=== PATIENT | male | born 1940 | race Caucasian/White ===

== ENCOUNTER → 2017-02-09 | Outpatient (CLI) | payer OTHER | LOC: BHFA 15:30 | PROVIDERS: ATTEND Internal Medicine Cardiovascular Disease | DX: I35.9 Nonrheumatic aortic valve disorder, unspecified (principal); I50.9 Heart failure, unspecified ==

== ENCOUNTER 2017-02-10 15:35 | Inpatient (IN) | payer OTHER, MEDICARE ==
[2017-02-10] MEDS ORDERED: ALTEPLASE 2 MG VIAL IVP PRN ×2 (15:44)
--- NOTE | 2017-02-10 15:48 | GHP ---
[f rep st] HISTORY AND PHYSICAL CHIEF COMPLAINT: Shortness of breath at rest with critical aortic stenosis and decompensated heart failure. HISTORY OF PRESENT ILLNESS: The patient is a 77-year-old gentleman who started having shortness of breath and chest pain 3 months ago. He was admitted 3 weeks ago at [facility] and found to have an EF of 40% with critical aortic stenosis. He was referred to [facility] for consideration of AVR. An echo yesterday now demonstrates an LVEF of 10% with severe RV dysfunction, and critical aortic stenosis with a peak and mean gradient of 32 and 22 mmHg, with mild to moderate AI, MR and TR with moderate PI. The patient currently has shortness of breath at rest. He sleeps on 2-3 pillows with some orthopnea. He has had no further chest pain or syncope. His weight has been stable over the last several weeks at home. He is tentatively scheduled for a balloon valvuloplasty in the cardiac lab courier in 4 days. PAST MEDICAL HISTORY: Critical aortic stenosis, acute heart failure with an EF of 10% and concurrent RV dysfunction, and COPD. PAST SURGICAL HISTORY: None. CURRENT MEDICATIONS: Lasix 40 mg per day, atorvastatin, and the rest of medications are noncardiac. ALLERGIES: No known drug allergies. SOCIAL HISTORY: The patient does not smoke. He has 2-3 beers per day. FAMILY HISTORY: Unremarkable for premature coronary artery disease. REVIEW OF SYSTEMS: The patient reports no recent fevers, chills. He has a mildly productive yellow cough. He reports no hemoptysis. He has no GI bleed symptoms such as hematemesis, melena, or bright red blood per rectum. Rest of 10-point review of systems is negative. PHYSICAL EXAM: VITAL SIGNS: Afebrile, pulse 54 and regular, blood pressure 110 /80, respirations 24, weight 72.1 kg. GENERAL: A normal-appearing gentleman in no acute distress with mild shortness of breath at rest. EYES: Pupils equal , reactive to light. ENT: Oral mucosa with no cyanosis. NECK: Jugular venous pressure to 9-10 cm. Carotid pulses 1+ bilaterally with no obvious bruits. LUNGS: Decreased breath sounds at the bases bilaterally, consistent with bilateral moderate pleural effusions. No rales or rhonchi heard. HEART: Regular rate and rhythm with 1/6 nonradiating systolic murmur and positive S3 gallop. ABDOMEN: No guarding or rebound. EXTREMITIES: 1+ peripheral pulses including femoral and pedal pulses. Trace pretibial edema. MUSCULOSKELETAL: No scoliosis. NEURO: Normal affect and mood. SKIN: No bleeding or cyanosis. NECK: No nuchal rigidity. LABS: Done on 01/21/2017, sodium 135, potassium 3.6, chloride 23, creatinine 1.2, glucose 102. OTHER TESTING: Coronary angiogram on 01/18/2017, at [facility], demonstrated normal coronary arteries. Right heart hemodynamics demonstrated a PA pressure of 81/42, mean pulmonary capillary wedge pressure 44, and right atrial pressure of 29 with a cardiac index of 1.8 L/minute respectively. IMPRESSION AND PLAN: A 77-year-old gentleman with decompensated nonischemic systolic heart failure secondary to severe aortic stenosis with a left ventricular ejection fraction of 10% and Class 4 [place] [employer] symptoms. I am concerned that the patient has moderate pleural effusions and a very low cardiac index. I would recommend the followin. Will admit him to intensive care unit and place a peripherally inserted central catheter line today. 2. Will start on dobutamine at 3 mcg/kg per minute and probably titrate up to 5 mcg/kg per minute over the next day as long as he has no nonsustained ventricular tachycardia. 3. Will start him on Lasix 40 mg intravenously every 12 hours. 4. Will start on Aldactone 25 mg per day. 5. Will get admission labs including a CBC, CMP panel, BNP level, magnesium and PT/INR. 6. Will continue on his atorvastatin. 7. Will get daily BMP and magnesium levels. 8. We will watch closely on telemetry for any nonsustained ventricular tachycardia while on inotropes. 9. Will plan on doing a balloon valvuloplasty in the lab courier in 3-4 days, during this hospitalization. 10. For now, I do not think he will tolerate a beta norbert or angiotensin- converting enzyme inhibitor secondary to his low cardiac index and critical aortic stenosis. /[id number]/MODL MTDD
--- NOTE | 2017-02-10 15:48 | GHP ---
[f rep st] HISTORY AND PHYSICAL CHIEF COMPLAINT: Shortness of breath at rest with critical aortic stenosis and decompensated heart failure. HISTORY OF PRESENT ILLNESS: The patient is a 77-year-old gentleman who started having shortness of breath and chest pain 3 months ago. He was admitted 3 weeks ago at [facility] and found to have an EF of 40% with critical aortic stenosis. He was referred to [facility] for consideration of AVR. An echo yesterday now demonstrates an LVEF of 10% with severe RV dysfunction, and critical aortic stenosis with a peak and mean gradient of 32 and 22 mmHg, with mild to moderate AI, MR and TR with moderate PI. The patient currently has shortness of breath at rest. He sleeps on 2-3 pillows with some orthopnea. He has had no further chest pain or syncope. His weight has been stable over the last several weeks at home. He is tentatively scheduled for a balloon valvuloplasty in the cardiac veterinary laboratory technician in 4 days. PAST MEDICAL HISTORY: Critical aortic stenosis, acute heart failure with an EF of 10% and concurrent RV dysfunction, and COPD. PAST SURGICAL HISTORY: None. CURRENT MEDICATIONS: Lasix 40 mg per day, atorvastatin, and the rest of medications are noncardiac. ALLERGIES: No known drug allergies. SOCIAL HISTORY: The patient does not smoke. He has 2-3 beers per day. FAMILY HISTORY: Unremarkable for premature coronary artery disease. REVIEW OF SYSTEMS: The patient reports no recent fevers, chills. He has a mildly productive yellow cough. He reports no hemoptysis. He has no GI bleed symptoms such as hematemesis, melena, or bright red blood per rectum. Rest of 10-point review of systems is negative. PHYSICAL EXAM: VITAL SIGNS: Afebrile, pulse 54 and regular, blood pressure 110 /80, respirations 24, weight 72.1 kg. GENERAL: A normal-appearing gentleman in no acute distress with mild shortness of breath at rest. EYES: Pupils equal , reactive to light. ENT: Oral mucosa with no cyanosis. NECK: Jugular venous pressure to 9-10 cm. Carotid pulses 1+ bilaterally with no obvious bruits. LUNGS: Decreased breath sounds at the bases bilaterally, consistent with bilateral moderate pleural effusions. No rales or rhonchi heard. HEART: Regular rate and rhythm with 1/6 nonradiating systolic murmur and positive S3 gallop. ABDOMEN: No guarding or rebound. EXTREMITIES: 1+ peripheral pulses including femoral and pedal pulses. Trace pretibial edema. MUSCULOSKELETAL: No scoliosis. NEURO: Normal affect and mood. SKIN: No bleeding or cyanosis. NECK: No nuchal rigidity. LABS: Done on 01/21/2017, sodium 135, potassium 3.6, chloride 23, creatinine 1.2, glucose 102. OTHER TESTING: Coronary angiogram on 01/18/2017, at [facility], demonstrated normal coronary arteries. Right heart hemodynamics demonstrated a PA pressure of 81/42, mean pulmonary capillary wedge pressure 44, and right atrial pressure of 29 with a cardiac index of 1.8 L/minute respectively. IMPRESSION AND PLAN: A 77-year-old gentleman with decompensated nonischemic systolic heart failure secondary to severe aortic stenosis with a left ventricular ejection fraction of 10% and Class 4 [place] [employer] symptoms. I am concerned that the patient has moderate pleural effusions and a very low cardiac index. I would recommend the followin. Will admit him to intensive care unit and place a peripherally inserted central catheter line today. 2. Will start on dobutamine at 3 mcg/kg per minute and probably titrate up to 5 mcg/kg per minute over the next day as long as he has no nonsustained ventricular tachycardia. 3. Will start him on Lasix 40 mg intravenously every 12 hours. 4. Will start on Aldactone 25 mg per day. 5. Will get admission labs including a CBC, CMP panel, BNP level, magnesium and PT/INR. 6. Will continue on his atorvastatin. 7. Will get daily BMP and magnesium levels. 8. We will watch closely on telemetry for any nonsustained ventricular tachycardia while on inotropes. 9. Will plan on doing a balloon valvuloplasty in the veterinary laboratory technician in 3-4 days, during this hospitalization. 10. For now, I do not think he will tolerate a beta norbert or angiotensin- converting enzyme inhibitor secondary to his low cardiac index and critical aortic stenosis. /[id number]/MODL MTDD
[2017-02-10] MEDS ORDERED: DOBUTamine 500 MG in D5W 250 ML IV SCH (16:00)
[2017-02-10] MEDS: SPIRONOLACTONE 25 MG TAB PO SCH ×2 (16:21)
[2017-02-10] MEDS: DOBUTamine/DEXTROSE 250 ML IV SCH ×2 (17:15)
[2017-02-10] MEDS ORDERED: FUROSEMIDE 40 MG/4 ML VIAL IVP SCH ×2 (17:30)
[2017-02-10 19:00] LABS: INR 1.78 (0.83-1.16); PROTIME(PATIENT) 20.8 SEC (12.0-15.0)
[2017-02-11] MEDS: traZODone 50 MG TAB PO SCH ×4 (00:33→21:16)
--- NOTE | 2017-02-11 08:48 | SOAPPROG ---
[facility] Progress Note Assessment/Plan: Assessment: 77 y/o man with critical and acute on chronic non-ischemic systolic CHF with LVEF 10% and severe RV dysfunction. He is not having angina or NSVT on IV DBT. PLAN: 1)increase IV DBT to 5mcg/kg/min. 2)increase Lasix to 60mg IV q12hrs. 3)Lovenox 40mg SQ qam. 4)start KCL 20meq PO BID 5)plan to take to cardiac phlebotomy lab assistant Wednesday 02/14 for BAV (balloon aortic valvuloplasty). 6)recheck INR and CMP in am 02/11/17 08:44 Subjective: overall he feels a little better today. Denies CP, rest shortness of breath or palpitations. "Feels more warm" Ambulate hallway for 50ft without sx. Objective: Vital Signs Temp Pulse Resp BP Pulse Ox 36.4 C 91 24 H 98/58 L 96 02/11/17 08:00 02/11/17 08:41 02/11/17 08:41 02/11/17 08:41 02/11/17 08:41 Laboratory Results 02/10/17 18:40 02/11/17 05:20 02/10/17 02/11/17 02/12/17 05:59 05:59 05:59 Intake Total 585 Output Total 900 Balance -315 PT 20.8 SEC (12.0-15.0) H 02/10/17 18:40 INR 1.78 (0.83-1.16) H 02/10/17 18:40 Physical Exam - Physical Exam General Appearance: alert EENT: normal ENT inspection Neck: non-tender Respiratory: decreased breath sounds, rales Cardiac/Chest: regular rate, rhythm, gallop, JVD, systolic murmur Peripheral Pulses: 1+: carotid (R), carotid (L), femoral (R), femoral (L), dorsalis-pedis (R), dorsalis-pedis (L) Abdomen: non-tender, organomegaly, hepatomegaly, No guarding, No ascites Skin: warm/dry Extremities: No pedal edema Neuro/Psych: alert ICD10 Worksheet Patient Problems: Problems Problem Status Onset Acute on chronic systolic CHF (congestive heart failure), NYHA class 4 Acute Acute on chronic systolic CHF (congestive heart failure), NYHA class 4 Acute Aortic stenosis Acute Aortic stenosis Acute - ICD10 Problem Qualifiers (1) Acute on chronic systolic CHF (congestive heart failure), NYHA class 4 (2) Acute on chronic systolic CHF (congestive heart failure), NYHA class 4 (3) Aortic stenosis (4) Aortic stenosis
[2017-02-11] MEDS ORDERED: ATORVASTATIN CALCIUM 10 MG TAB PO SCH ×2 (09:00)
[2017-02-11] MEDS: CHOLECALCIFEROL VIT D3 1,000 UNITS TAB PO SCH ×2 (09:34)
[2017-02-11] MEDS: ENOXAPARIN 40 MG/0.4 ML SYR SC SCH ×2 (09:35)
[2017-02-11] MEDS: ATORVASTATIN CALCIUM 20 MG TAB PO SCH ×2 (09:35)
[2017-02-11] MEDS: SPIRONOLACTONE 25 MG TAB PO SCH ×2 (09:35)
[2017-02-11] MEDS: POTASSIUM CL 20 MEQ/15 ML UDCUP PO SCH ×4 (09:35→21:16)
[2017-02-11] MEDS: FUROSEMIDE 20 MG/2 ML VIAL IVP SCH ×4 (09:35→15:46)
--- NOTE | 2017-02-11 10:12 | GCON ---
[f rep st] CONSULTATION OCEANIC SCIENCES PROFESSOR CONSULTATION REASON FOR ADMISSION: Critical aortic stenosis. Acute congestive heart failure. HISTORY OF PRESENT ILLNESS: The patient is an extremely pleasant 77-year-old white male with a past medical history of critical aortic stenosis. He also has cardiomyopathy with an ejection fraction of 10% and chronic obstructive pulmonary disease. He was admitted from the cardiology clinic for worse cynthia breathlessness. He fairly recently has been at [facility]. Ejection fraction while at [facility] 3 weeks ago was an ejection fraction of 40%. This is apparently down to 10%, and he was subsequently admitted. In discussion with the patient, he states that he uses oxygen at night. He is currently slightly breathless. He denies any cough or productive sputum. There is no chest p ain, pleuritic-type chest pain or angina equivalent. He is currently resting comfortably. PAST MEDICAL HISTORY: Significant for critical aortic stenosis. Congestive heart failure. Right ve ntricular dysfunction and chronic obstructive pulmonary disease. ALLERGIES: No known medications. SOCIAL HISTORY: Previous history of tobacco use. None recently. He drinks 2-3 beers per day. He i s retired. ALLERGIES: None known. MEDICATIONS: Atorvastatin, Lasix. PHYSICAL EXAM: VITAL SIGNS: Blood pressure 96/49, pulse is 88, respirations 22, temperature is 36.4 , oxygen saturation 95% on room air, though this desaturates when he sleeps. GENERAL: He is a thin, elderly white male who is resting comfortably in no acute distress. HEENT: Eyes are PERRLA, EOMI. He has bilateral arcus senilis present. Throat shows no erythema or tonsillar hypertrophy. NECK: Supple. No cervical adenopathy. HEART: Regular rate and rhythm with a 3/6 systolic murmur left ascencion rnal border without radiation. LUNGS: Diminished breath sounds. A few bibasilar crackles, but no w heeze. There is mild prolongation of expiratory phase. ABDOMEN: Soft, nontender. Bowel sounds are present in all 4 quadrants. EXTREMITIES: No clubbing, cyanosis, or edema. LABORATORIES: White count 10.9, hemoglobin 14, hematocrit 43, platelet count is 223, sodium 134, pot assium 4.2, chloride 98, CO2 25, BUN 39, creatinine 1.1, glucose is 101. Chest x-ray shows a right-sided pleural effusion. There is some plate like atelectasis in the right mid lung field. There is significant cardiomegaly. IMPRESSION: 1. Adequate pain control. Critical aortic stenosis. 2. Pleural effusion. 3. Acute congestive heart failure. Ejection fraction 10%. 4. Chronic obstructive pulmonary disease. RECOMMENDATIONS: 1. Frequent nebulized treatment, both albuterol and Atrovent. 2. No need for steroids at this time. 3. We will perform thoracentesis at bedside today. 4. DVT and PE prophylaxis. 5. Stress ulcer prophylaxis. 6. Anticipate balloon valvuloplasty in 3-4 days. 7. Agree with dobutamine. /[id number]/MODL
--- NOTE | 2017-02-11 14:41 | ASMTCMCOM ---
CM Note CM Note Notes: Pt admitted with heart failuer. His DC needs are TBD. Plan is for a balloon valvuloplasty in 3-4 days. C/M will continue to follow. Date Signed: 02/11/2017 02:41 PM Electronically Signed By:Latisha James LCSW
[2017-02-12 06:34] LABS: INR 1.49 (0.83-1.16)
--- NOTE | 2017-02-12 07:08 | SOAPPROG ---
[facility] Progress Note Assessment/Plan: Assessment: 77 y/o man with critical and acute on chronic non-ischemic systolic CHF with LVEF 10% and severe RV dysfunction. He is not having angina or NSVT on IV DBT. His cardiac output is stablizing on IV DBT with LFTs down from 1000's to 250's. Some PVCs but no angina or NSVT. PLAN: 1)increase Lasix to 80mg IV BID 2)increase Aldactone to 50mg PO qam. 3)increase KCL to 20meq PO TID 4)labs in AM (CBC, CMP, BNP level and PT/INR). 5)continue IV DBT another two days. 6)Wednesday 02/14 take to cath labs for BAV (balloon aortic valvuloplasty) 02/12/17 07:04 Subjective: overall no complaints. Denies CP, syncope, PND or palpitations. Ambulating around room without sx. Objective: Vital Signs Temp Pulse Resp BP Pulse Ox 37.0 C 89 16 91/59 L 98 02/12/17 04:00 02/12/17 06:00 02/12/17 06:00 02/12/17 06:00 02/12/17 06:00 Laboratory Results 02/10/17 18:40 02/12/17 06:10 02/11/17 02/12/17 02/13/17 05:59 05:59 05:59 Intake Total 585 1645 Output Total 900 1650 Balance -315 -5 PT 18.0 SEC (12.0-15.0) H 02/12/17 06:10 INR 1.49 (0.83-1.16) H 02/12/17 06:10 Physical Exam - Physical Exam General Appearance: alert EENT: normal ENT inspection Neck: full range of motion Respiratory: decreased breath sounds (bases bilateral with rare rales bilaterally.) Cardiac/Chest: regular rate, rhythm, gallop, JVD (jvp to 9cm), systolic murmur Peripheral Pulses: 1+: carotid (R), carotid (L), femoral (R), femoral (L), dorsalis-pedis (R), dorsalis-pedis (L) Abdomen: non-tender, soft, organomegaly, No rebound Skin: warm/dry Extremities: No pedal edema Neuro/Psych: oriented x 3 ICD10 Worksheet Patient Problems: Problems Problem Status Onset Acute on chronic systolic CHF (congestive heart failure), NYHA class 4 Acute Acute on chronic systolic CHF (congestive heart failure), NYHA class 4 Acute Aortic stenosis Acute Aortic stenosis Acute - ICD10 Problem Qualifiers (1) Acute on chronic systolic CHF (congestive heart failure), NYHA class 4 (2) Acute on chronic systolic CHF (congestive heart failure), NYHA class 4 (3) Aortic stenosis (4) Aortic stenosis
[2017-02-12] MEDS: CHOLECALCIFEROL VIT D3 1,000 UNITS TAB PO SCH ×2 (09:18)
[2017-02-12] MEDS: ENOXAPARIN 40 MG/0.4 ML SYR SC SCH ×2 (09:18)
[2017-02-12] MEDS: ATORVASTATIN CALCIUM 20 MG TAB PO SCH ×2 (09:18)
[2017-02-12] MEDS: SPIRONOLACTONE 50 MG TAB PO SCH ×2 (09:22)
[2017-02-12] MEDS: POTASSIUM CL 20 MEQ/15 ML UDCUP PO SCH ×6 (09:22→23:25)
[2017-02-12] MEDS: FUROSEMIDE 100 MG/10 ML VIAL IVP SCH ×4 (09:22→14:41)
--- NOTE | 2017-02-12 09:48 | PDINTPN ---
[employer] Developer Progress Note Assessment/Plan: Assessment: * Acute congestive heart failure * Severe aortic stenosis-critical * Chronic obstructive pulmonary disease * Right-sided pleural effusion * Acute Respiratory failure secondary to above Plan: Thoracentesis today Continue diuresis Plan for balloon valvuloplasty in 3-4 days Subjective: Resting comfortably. No current breathlessness. Admits to a cough. Objective: Vital Signs Temp Pulse Resp BP Pulse Ox 36.5 C 87 16 90/51 L 91 L 02/12/17 08:00 02/12/17 09:00 02/12/17 09:00 02/12/17 09:00 02/12/17 09:00 Laboratory Results 02/10/17 18:40 02/12/17 06:10 02/11/17 02/12/17 02/13/17 05:59 05:59 05:59 Intake Total 585 1645 Output Total 900 1650 Balance -315 -5 PT 18.0 SEC (12.0-15.0) H 02/12/17 06:10 INR 1.49 (0.83-1.16) H 02/12/17 06:10 Laboratory Results 02/10/17 18:40 02/12/17 06:10 02/12/17 06:10 Calcium 7.7 mg/dL L mg/dL (8.5 - 10.4) Total Bilirubin 3.0 mg/dL H mg/dL (0.1 - 1.4) Conjugated Bilirubin 1.6 mg/dL H mg/dL (0.0 - 0.5) Unconjugated Bilirubin 1.4 mg/dL H mg/dL (0.0 - 1.1) AST 236 IU/L H IU/L (17 - 59) ALT 567 IU/L H IU/L (21 - 72) Alkaline Phosphatase 224 IU/L H IU/L (38 - 126) Total Protein 4.9 g/dL L g/dL (6.3 - 8.2) Physical Exam - Physical Exam General Appearance: alert, no apparent distress EENT: PERRL/EOMI, normal ENT inspection Neck: non-tender, full range of motion, supple, normal inspection Respiratory: respiratory distress, crackles, No wheezing, No prolonged expiration Cardiac/Chest: normal peripheral pulses, regular rate, rhythm, systolic murmur Peripheral Pulses: 2+: carotid (R), carotid (L), femoral (R), femoral (L), dorsalis-pedis (R), dorsalis-pedis (L) Abdomen: normal bowel sounds, non-tender, soft Male Genitalia: deferred Rectal: deferred Skin: normal color, warm/dry Lymphatic: no adenopathy Neuro/Psych: no motor/sensory deficits, alert, normal mood/affect, oriented x 3 ICD10 Worksheet Patient Problems: Problems Problem Status Onset Acute on chronic systolic CHF (congestive heart failure), NYHA class 4 Acute Acute on chronic systolic CHF (congestive heart failure), NYHA class 4 Acute Aortic stenosis Acute Aortic stenosis Acute
[2017-02-12] MEDS ORDERED: LIDOCAINE 1% 5 ML SDV ONE ×2 (11:41)
--- NOTE | 2017-02-12 12:20 | GPN ---
[f rep st] PROCEDURE NOTE DATE OF PROCEDURE: 02/12/2017 PROCEDURE PERFORMED: Thoracentesis. INDICATION: Large right pleural effusion. ANESTHESIA GIVEN: He received 1% lidocaine locally. PROCEDURE IN DETAIL: Procedure was performed in the intensive care unit. Continuous pulse oximetry, EKG and blood pressure monitoring. Procedure via Seldinger technique. A thoracentesis was performe d in the right chest after ultrasound guidance. Approximately the 1200 cc of clearish yellow fluid w as removed. The patient tolerated the procedure well. There were no apparent complications. Portable chest x-ra y has been called for. /[id number]/MODL
[2017-02-12] MEDS ORDERED: LIDOCAINE 1% 5 ML SDV IF ONE ×2 (13:00)
[2017-02-12] MEDS ORDERED: ACETAMINOPHEN 325 MG TAB PO PRN ×2 (13:39)
[2017-02-12] MEDS: DOBUTamine/DEXTROSE 250 ML IV SCH ×2 (23:25)
[2017-02-12] MEDS: traZODone 50 MG TAB PO SCH ×2 (23:25)
[2017-02-13 07:08] LABS: INR 1.32 (0.83-1.16); PROTIME(PATIENT) 16.4 SEC (12.0-15.0)
[2017-02-13] MEDS: ENOXAPARIN 40 MG/0.4 ML SYR SC SCH ×2 (08:55)
[2017-02-13] MEDS: CHOLECALCIFEROL VIT D3 1,000 UNITS TAB PO SCH ×2 (08:55)
[2017-02-13] MEDS: SPIRONOLACTONE 50 MG TAB PO SCH ×2 (08:56)
[2017-02-13] MEDS: POTASSIUM CL 20 MEQ/15 ML UDCUP PO SCH ×6 (08:56→20:51)
[2017-02-13] MEDS: FUROSEMIDE 100 MG/10 ML VIAL IVP SCH ×4 (08:56→15:22)
--- NOTE | 2017-02-13 10:59 | PDCARPN ---
Cardiology Progress Note Chief Complaint: Patient reports ongoing fatigue symptoms. Assessment/Plan: Assessment: 67-year-old male with significant history of critical aortic stenosis (peak gradient 32, mean gradient 22), acute systolic heart failure with with EF 10% and concurrent RV dysfunction, and COPD. Admitted for worsening heart failure with recent reduction of EF from 40 down to 10%. Noted significant elevated LFTs on admission, started on dobutamine drip in diuretic therapy. Underwent thoracentesis to the right chest yesterday with 1200 mL of clear she L of fluid removed. Today's patient weight is 67.6 kilos, he is down 4 kilos from hospital admission. BNP is now down to 10,002 from 06/05 1900 on admission. AST and ALT both improved (153 and 454) with dobutamine and diuresis. Patient has maintained sinus rhythm with occasional PVC, noted to 3 beat run of SVT. No other malignant arrhythmias or pauses noted monitoring. Patient denies of any chest pressure pain. Reports breathing is easier status post thoracentesis. Plan: 1. Acute systolic heart failure: Continues to improve on dobutamine and diuretic therapy. No changes at this time. Beta-blockers and Sameer inhibitors were hold secondary to low cardiac dex in critical aortic stenosis, consideration of starting pending results of valvuloplasty. No changes at this time to medication therapy. Patient remains on potassium supplemental therapy. Repeat CMP in a.m.. 2. Pleural effusion: Status post right-sided thoracentesis yesterday, 1200 mL. 3. Critical aortic stenosis: Patient has been seen by Dr. Bower, he is scheduled to undergo balloon aortic valvuloplasty in a.m., patient has been made NPO after midnight, type and screen has been ordered. 4. Elevated LFTs: Probably related to recent reduction of cardiac output and systolic heart failure, has improved with dobutamine and diuretic therapy. Continue monitor. 5. Hyperlipidemia: Has been continue on home dosing of atorvastatin. 02/13/17 10:56 Subjective: Patient reports no chest pain or pressure, denies palpitations. Reports shortness of breath has improved significantly after thoracentesis yesterday. Reports no orthopnea. Reviewed/Discussed With: other (Dr Monzon and Dr Garcia) Objective: Vital Signs (8 Hrs) Temp Pulse Resp BP Pulse Ox 02/13/17 10:00 104 H 16 105/73 97 10/30/17 09:00 108 H 16 85/45 L 97 02/13/17 08:00 100 14 85/47 L 94 02/13/17 07:00 81 16 88/50 L 96 02/13/17 06:00 81 16 96/56 L 95 02/13/17 05:00 84 16 88/50 L 98 02/13/17 04:00 36.9 C 81 16 94/56 L 97 02/13/17 03:00 95 14 83/54 L 98 Intake/Output (24 Hrs) 02/12/17 02/13/17 02/14/17 05:59 05:59 05:59 Intake Total 1645 1177 Output Total 1650 1650 Balance -5 -473 Intake: Oral (ml) 1400 920 IV Infused (ml) 245 257 DOBUTamine/DEXTROSE 250 245 257 ml @ Titrate IV CONT RENETTA Rx#:[id number] Output: Urine (ml) 1650 1650 Urinal 1650 1650 Other: Weight 67.6 kg 67.6 kg Intake Quantity Yes Yes Sufficient Number of Voids Urinal 1 2 Number of Stools Urinal 1 Result Diagrams: 02/13/17 06:45 02/13/17 06:45 - Physical Exam Constitutional: no apparent distress, other (Thin elderly male.) Ears, Nose, Mouth, Throat: moist mucous membranes Cardiovascular: regular rate and rhythm, systolic murmur (Upper chest, 2 to 3/6) , jugular vein distention (5-6 cm above sternal notch at 45 degree angle.), pulses symmetric bilat, No carotid bruit Peripheral Pulses: 1+: dorsalis-pedis (R), dorsalis-pedis (L), 2+: carotid (R), carotid (L) Respiratory: other (Lungs diminished in right lower base, no rhonchi, rales, or wheezing noted. No accessary muscle use, no intercostal muscle retraction noted. ) Gastrointestinal: normoactive bowel sounds Skin: warm, no edema Neurologic: AAOx3 Psychiatric: cooperative, interactive, following commands ICD10 Worksheet Patient Problems: Problems Problem Status Onset Acute on chronic systolic CHF (congestive heart failure), NYHA class 4 Acute Acute on chronic systolic CHF (congestive heart failure), NYHA class 4 Acute Aortic stenosis Acute Aortic stenosis Acute
--- NOTE | 2017-02-13 14:48 | PDINTPN ---
Speech [employer] Progress Note Assessment/Plan: Assessment/plan: 77 M with known critical and decompensated CHF found to have EF 10% and awaiting balloon valvuloplasty, since not currently thought to be reasonable candidate for TAVR. He has been treated with dobutamine and diuretics as well as thoracentesis with a good response in BP, LFTs, renal function. * Critical - balloon valvuloplasty in AM * CHF- responding well to DBT/diuretics * Pleural effusion 2/2 above. Tolerated tap well with no complications and improved breathing. * COPD history- currently stable without nebs. Continue observation for now and will clarify diagnosis. * * Subjective: Feels OK. Denies CP, SOB. Objective: Vital Signs Temp Pulse Resp BP Pulse Ox 36.5 C 90 18 90/63 L 91 L 02/13/17 11:00 02/13/17 14:00 02/13/17 14:00 02/13/17 14:00 02/13/17 14:00 Microbiology 02/12/17 10:30 - Final Sputum, Expectorated Sputum Culture - Final 02/12/17 12:15 Gram Stain - Final Pleural Fluid - Aspirate Laboratory Results 02/13/17 06:45 02/13/17 06:45 02/12/17 02/13/17 02/14/17 05:59 05:59 05:59 Intake Total 1645 1177 Output Total 1650 1650 Balance -5 -473 PT 16.4 SEC (12.0-15.0) H 02/13/17 06:45 INR 1.32 (0.83-1.16) H 02/13/17 06:45 Physical Exam - Physical Exam General Appearance: WD/WN, alert, no apparent distress EENT: PERRL/EOMI Neck: supple Respiratory: lungs clear, normal breath sounds, No respiratory distress, No wheezing Cardiac/Chest: regular rate, rhythm Abdomen: non-tender, soft, No distended Skin: normal color, warm/dry Lymphatic: no adenopathy Extremities: No pedal edema Neuro/Psych: alert, normal mood/affect, oriented x 3 ICD10 Worksheet Patient Problems: Problems Problem Status Onset Acute on chronic systolic CHF (congestive heart failure), NYHA class 4 Acute Acute on chronic systolic CHF (congestive heart failure), NYHA class 4 Acute Aortic stenosis Acute Aortic stenosis Acute
[2017-02-13] MEDS: ATORVASTATIN CALCIUM 20 MG TAB PO SCH ×2 (17:35)
[2017-02-13] MEDS: DOBUTamine/DEXTROSE 250 ML IV SCH ×2 (19:12)
[2017-02-13] MEDS ORDERED: LACTULOSE 20 GM/30 ML UDCUP PO PRN ×2 (20:35)
[2017-02-13] MEDS ORDERED: MAGNESIUM HYDROXIDE 30 ML UDCUP PO PRN ×2 (20:35)
[2017-02-13] MEDS ORDERED: POLYETHYLENE GLYCOL 3350 17 GM PKT PO PRN ×2 (20:35)
[2017-02-13] MEDS ORDERED: BISACODYL 10 MG SUPP PR PRN ×2 (20:35)
[2017-02-13] MEDS: traZODone 50 MG TAB PO SCH ×2 (20:51)
[2017-02-13] MEDS: SENNOSIDES/DOCUSATE SODIUM TAB PO SCH ×2 (20:51)
[2017-02-14 05:43] LABS: INR 1.19 (0.83-1.16); PROTIME(PATIENT) 15.1 SEC (12.0-15.0)
[2017-02-14] MEDS ORDERED: diphenhydrAMINE 25 MG CAP PO ONE ×2 (06:00)
[2017-02-14] MEDS ORDERED: DIAZEPAM 5 MG TAB PO ONE ×2 (06:00)
[2017-02-14] MEDS ORDERED: FAMOTIDINE 20 MG TAB PO ONE ×2 (06:00)
[2017-02-14] MEDS ORDERED: NS 1,000 ML IV ONE ×2 (06:00)
[2017-02-14] MEDS ORDERED: fentaNYL 100 MCG/2 ML INJ ONE ×2 (06:46)
[2017-02-14] MEDS ORDERED: LIDOCAINE 1% 300 MG/30 ML SDV ONE ×2 (06:46)
[2017-02-14] MEDS ORDERED: IOPAMIDOL (ISOVUE-370) 150 ML BTL IV ONE ×2 (06:47)
[2017-02-14] MEDS ORDERED: MIDAZOLAM 2 MG/2 ML VIAL ONE ×2 (06:47)
[2017-02-14] MEDS ORDERED: HEPARIN 10,000 UNIT/10 ML MDV ONE ×4 (06:51)
--- NOTE | 2017-02-14 06:55 | CPEKG ---
Heart Rate: 94 RR Interval: 638 P-R Interval: 184 QRSD Interval: 100 QT Interval: 380 QTC Interval: 476 P [place]: 48 QRS [place]: -46 T Wave [place]: 88 EKG Severity - ABNORMAL ECG - EKG Impression: SINUS RHYTHM EKG Impression: VENTRICULAR PREMATURE COMPLEX EKG Impression: LEFT ATRIAL ABNORMALITY EKG Impression: LAD, CONSIDER LEFT ANTERIOR FASCICULAR BLOCK EKG Impression: LEFT VENTRICULAR HYPERTROPHY EKG Impression: BORDERLINE PROLONGED QT INTERVAL EKG Impression: NON SPECIFIC ST/T WAVE CHANGES TO THE LATERAL/HIGH LATERAL LEADS EKG Impression: CHANGES ARE NEW IN COMPARISON TO PRIOR Electronically Signed By: Radu Hammond 14-Feb-2017 09:58:44
--- NOTE | 2017-02-14 07:01 | PDPROPOC ---
Sedation Plan of Care Sedation Plan of Care: mental status noted ASA Classification: ASA 2 Planned drugs: midazolam Mallampati Score: Class 2 Mallampati Reference Image: Patient passed 3-3-2 rule?: Yes
[2017-02-14] MEDS ORDERED: DILTIAZEM 25 MG/5 ML VIAL IVP ONE ×2 (07:39)
[2017-02-14] MEDS ORDERED: PHENYLEPHRINE HCL 100 MCG/ML SYR ONE ×2 (07:53)
[2017-02-14] MEDS ORDERED: OXYCODONE/APAP 5/325 TAB PO PRN ×2 (08:12)
[2017-02-14] MEDS ORDERED: ATROPINE SULFATE 1 MG/10 ML SYR IVP PRN ×2 (08:12)
[2017-02-14] MEDS ORDERED: HYDROCODONE/APAP 5/325 TAB PO PRN ×2 (08:12)
[2017-02-14] MEDS ORDERED: DOBUTamine 500 MG in D5W 250 ML IV SCH (08:15)
[2017-02-14] MEDS: SENNOSIDES/DOCUSATE SODIUM TAB PO SCH ×4 (09:45→20:55)
[2017-02-14] MEDS: SPIRONOLACTONE 50 MG TAB PO SCH ×2 (09:45)
[2017-02-14] MEDS: FUROSEMIDE 40 MG/4 ML VIAL IVP SCH ×4 (09:45→16:46)
[2017-02-14] MEDS: CHOLECALCIFEROL VIT D3 1,000 UNITS TAB PO SCH ×2 (09:45)
[2017-02-14] MEDS: POTASSIUM CL 20 MEQ/15 ML UDCUP PO SCH ×4 (09:46→16:34)
--- NOTE | 2017-02-14 10:59 | PDCARPN ---
Cardiology Progress Note Chief Complaint: Patient very sedated, voices no complaints at this time. Assessment/Plan: Assessment: 67-year-old male with significant history of critical aortic stenosis (peak gradient 32, mean gradient 22), acute systolic heart failure with with EF 10% and concurrent RV dysfunction, and COPD. Admitted for worsening heart failure with recent reduction of EF from 40 down to 10%. Noted significant elevated LFTs on admission, started on dobutamine drip in diuretic therapy. Underwent thoracentesis to the right chest on 02/13 with 1200 mL of clear fluid removed. Today, patient is status post balloon aortic valvuloplasty , done by Dr. Garcia. Tolerated procedure well. Dr Garcia reports 80% opening of stenosis. Vital signs stable. Remained in sinus rhythm with occasional PVC, no other malignant arrhythmias noted overnight. Laboratory studies showing continue reduction LFTs, with AST at will 130 today, ALT 376. Weight remained stable at 67.6 kilos. I<O. Plan: 1. Critical aortic stenosis: s/p balloon aortic valvuloplasty, tolerated well. Postprocedure protocol being followed. Repeat echocardiogram in a.m.. 2. Acute systolic heart failure: No significant weight loss overnight. Renal function remained stable. Per Dr Garcia request, dobutamine drip has been titrated back to 2.5 mg per kg per minute, I have asked the ICU staff to attempt to titrate the drip to off by this evening, as long as systolic blood pressure remains in the 90s. Have also decreased IV Lasix to 40 mg twice daily and decreased potassium supplement to 20 mEq twice daily. Repeated potassium level and magnesium level at 2:00 p.m. today. Beta-blockers and Sameer inhibitors are on hold secondary to low cardiac index, may consider starting a few days. 3. Pleural effusion: Status post right-sided thoracentesis 02/13, 1200 mL out. 4. Elevated LFTs: Probably related to recent reduction of cardiac output and systolic heart failure, continues to improve. Continue to monitor. 5. Hyperlipidemia: Has been continue on home dosing of atorvastatin. 6. DVT prophylaxis: Lovenox currently on hold due to valvuloplasty today, consider restarting tomorrow morning 02/14/17 10:52 Subjective: Patient reports no chest pressure or pain. Is sedated postprocedure. Denies of any shortness of breath. Reviewed/Discussed With: other (Dr Garcia) Objective: Vital Signs (8 Hrs) Pulse Resp BP Pulse Ox 02/14/17 10:00 72 15 94/55 L 99 02/14/17 08:00 97 94 02/14/17 06:00 78 12 96/60 L 96 02/14/17 04:00 87 12 85/51 L 97 Intake/Output (24 Hrs) 02/13/17 02/14/17 02/15/17 05:59 05:59 05:59 Intake Total 1177 1517 Output Total 1650 2550 Balance -473 -1033 Intake: Oral (ml) 920 1250 IV Infused (ml) 257 267 DOBUTamine/DEXTROSE 250 257 267 ml @ Titrate IV CONT RENETTA Rx#:[id number] Output: Urine (ml) 1650 2550 Urinal 1650 2550 Other: Weight 67.6 kg 67.6 kg 67.6 kg Intake Quantity Yes Sufficient Number of Voids Urinal 2 4 Result Diagrams: 02/14/17 05:00 02/14/17 05:00 - Physical Exam Constitutional: WDWN, no apparent distress Ears, Nose, Mouth, Throat: moist mucous membranes Cardiovascular: regular rate and rhythm, no rubs, no gallops, systolic murmur (2 /6 right upper chest.), jugular vein distention (4-5 cm above sternal notch at 45 degree angle), pulses symmetric bilat, No carotid bruit Peripheral Pulses: 1+: dorsalis-pedis (R), dorsalis-pedis (L), 2+: carotid (R), carotid (L) Respiratory: other (Diminished breath sounds in right lower base, no rhonchi, rales, or wheezing noted. No accessary muscle use, no intercostal muscle retraction noted.) Gastrointestinal: normoactive bowel sounds Skin: no rashes, no edema, other (Left groin site, catheter insertion site, sheath removed, no redness, swelling, drainage, ecchymosis, or hematoma. Dressing CDI) Neurologic: AAOx3 Psychiatric: cooperative, following commands ICD10 Worksheet Patient Problems: Problems Problem Status Onset Acute on chronic systolic CHF (congestive heart failure), NYHA class 4 Acute Acute on chronic systolic CHF (congestive heart failure), NYHA class 4 Acute Aortic stenosis Acute Aortic stenosis Acute
--- NOTE | 2017-02-14 11:54 | CPIP ---
[f rep st] INVASIVE CARDIAC PROCEDURE DATE OF PROCEDURE: 02/14/2017 INDICATION FOR PROCEDURE: Critical aortic stenosis, low ejection fraction. PROCEDURE PERFORMED: 1. Left groin sheathogram. 2. Abdominal aortogram. 3. Left heart catheterization. 4. Balloon aortic valvuloplasty using Pardeep 20 x 60 balloon. HISTORY: Briefly, this is a 77-year-old male with history of critical aortic stenosis with a signifi cantly reduced EF of 10% to 15%. Patient was admitted 3 days ago for dobutamine and Lasix for volume overload. Patient was consented for balloon aortic valvuloplasty secondary to the fact being deemed to be an extremely high risk, if not inoperable candidate by Dr. Jaden Patel for open AVR. PROCEDURE DESCRIPTION: After informed consent was obtained, the patient was brought to [facility] where the left groin was prepped and draped in sterile fashion using lidocaine. A short 6-Maldivian sheath in th e left common femoral artery was placed for angiography. This was then upsized to an 8-Maldivian sheath . The patient was administered a total of 5000 heparin during the case. An AL1 4-Maldivian catheter wa s then utilized to cross the valve. This was unsuccessful due to the catheter not having enough stif fness to cross the valve, which was extremely calcified. This was eventually successfully crossed wi a straight wire and an AL1 6-Maldivian catheter. This was switched out for a pigtail catheter over a 260 J-wire. Simultaneous pressures were then obtained, which showed a mean gradient difference of a pproximately 44 mmHg from the LV and the aorta. This is in the setting of a significantly reduced ej ection fraction of 10% to 15%. Thus, his gradients were probably underestimated if anything. At thi s time, the pigtail catheter was removed over an Amplatz superstiff wire. A Pardeep 20 x 60 balloon wa s then placed across the aortic valve. Multiple sequential inflations occurred across the valve. Af ter multiple inflations, the balloon was removed. A pigtail catheter was placed in the LV. Simultan eous pressures were then obtained, which then showed a mean gradient difference of 5 mmHg for a net r eduction of 39 mmHg. The pigtail catheter was then removed and placed in the descending aorta where an abdominal aortogram was obtained, which showed patent descending aorta, patent bilateral common, e xternal, internal, and common femorals. However, the flow was very slow; thus, opacification of the right common femoral artery was limited. After these images were obtained, the pigtail catheter was removed. The 0.035 wire in the left groin was sutured in place. The patient tolerated the procedure well with no complications. Of note, the patient's systemic blood pressure increased significantly after the balloon valvuloplasty from a baseline of 100/70 to 120/70. IMPRESSION: Successful balloon aortic valvuloplasty reducing mean gradient difference of 44 mmHg to 5 mmHg for a net reduction of 39 mmHg. PLAN: The patient will be admitted back to the ICU setting. Dobutamine should be weaned down later today, hopefully to off later this evening, as well as having the IV Lasix reduced. Patient should h ave a repeat echo in 24 hours. Unfortunately, the patient's ejection fraction does not improve signi ficantly with this procedure. Choices are limited for further therapy, i.e., open heart surgery or e alia TAVR, as he is a very, very high risk candidate. Clinical course will determine patient's future options. /[id number]/MODL
--- NOTE | 2017-02-14 11:54 | CPIP ---
[f rep st] INVASIVE CARDIAC PROCEDURE DATE OF PROCEDURE: 02/14/2017 INDICATION FOR PROCEDURE: Critical aortic stenosis, low ejection fraction. PROCEDURE PERFORMED: 1. Left groin sheathogram. 2. Abdominal aortogram. 3. Left heart catheterization. 4. Balloon aortic valvuloplasty using Pardeep 20 x 60 balloon. HISTORY: Briefly, this is a 77-year-old male with history of critical aortic stenosis with a signifi cantly reduced EF of 10% to 15%. Patient was admitted 3 days ago for dobutamine and Lasix for volume overload. Patient was consented for balloon aortic valvuloplasty secondary to the fact being deemed to be an extremely high risk, if not inoperable candidate by Dr. Jaden Patel for open AVR. PROCEDURE DESCRIPTION: After informed consent was obtained, the patient was brought to [facility] where the left groin was prepped and draped in sterile fashion using lidocaine. A short 6-Eritrean sheath in th e left common femoral artery was placed for angiography. This was then upsized to an 8-Eritrean sheath . The patient was administered a total of 5000 heparin during the case. An AL1 4-Eritrean catheter wa s then utilized to cross the valve. This was unsuccessful due to the catheter not having enough stif fness to cross the valve, which was extremely calcified. This was eventually successfully crossed wi a straight wire and an AL1 6-Eritrean catheter. This was switched out for a pigtail catheter over a 260 J-wire. Simultaneous pressures were then obtained, which showed a mean gradient difference of a pproximately 44 mmHg from the LV and the aorta. This is in the setting of a significantly reduced ej ection fraction of 10% to 15%. Thus, his gradients were probably underestimated if anything. At thi s time, the pigtail catheter was removed over an Amplatz superstiff wire. A Pardeep 20 x 60 balloon wa s then placed across the aortic valve. Multiple sequential inflations occurred across the valve. Af ter multiple inflations, the balloon was removed. A pigtail catheter was placed in the LV. Simultan eous pressures were then obtained, which then showed a mean gradient difference of 5 mmHg for a net r eduction of 39 mmHg. The pigtail catheter was then removed and placed in the descending aorta where an abdominal aortogram was obtained, which showed patent descending aorta, patent bilateral common, e xternal, internal, and common femorals. However, the flow was very slow; thus, opacification of the right common femoral artery was limited. After these images were obtained, the pigtail catheter was removed. The 0.035 wire in the left groin was sutured in place. The patient tolerated the procedure well with no complications. Of note, the patient's systemic blood pressure increased significantly after the balloon valvuloplasty from a baseline of 100/70 to 120/70. IMPRESSION: Successful balloon aortic valvuloplasty reducing mean gradient difference of 44 mmHg to 5 mmHg for a net reduction of 39 mmHg. PLAN: The patient will be admitted back to the ICU setting. Dobutamine should be weaned down later today, hopefully to off later this evening, as well as having the IV Lasix reduced. Patient should h ave a repeat echo in 24 hours. Unfortunately, the patient's ejection fraction does not improve signi ficantly with this procedure. Choices are limited for further therapy, i.e., open heart surgery or e alia TAVR, as he is a very, very high risk candidate. Clinical course will determine patient's future options. /[id number]/MODL
--- NOTE | 2017-02-14 11:54 | CPIP ---
[f rep st] INVASIVE CARDIAC PROCEDURE DATE OF PROCEDURE: 02/14/2017 INDICATION FOR PROCEDURE: Critical aortic stenosis, low ejection fraction. PROCEDURE PERFORMED: 1. Left groin sheathogram. 2. Abdominal aortogram. 3. Left heart catheterization. 4. Balloon aortic valvuloplasty using Pardeep 20 x 60 balloon. HISTORY: Briefly, this is a 77-year-old male with history of critical aortic stenosis with a signifi cantly reduced EF of 10% to 15%. Patient was admitted 3 days ago for dobutamine and Lasix for volume overload. Patient was consented for balloon aortic valvuloplasty secondary to the fact being deemed to be an extremely high risk, if not inoperable candidate by Dr. Jaden Patel for open AVR. PROCEDURE DESCRIPTION: After informed consent was obtained, the patient was brought to [facility] where the left groin was prepped and draped in sterile fashion using lidocaine. A short 6-Greek sheath in th e left common femoral artery was placed for angiography. This was then upsized to an 8-Greek sheath . The patient was administered a total of 5000 heparin during the case. An AL1 4-Greek catheter wa s then utilized to cross the valve. This was unsuccessful due to the catheter not having enough stif fness to cross the valve, which was extremely calcified. This was eventually successfully crossed wi a straight wire and an AL1 6-Greek catheter. This was switched out for a pigtail catheter over a 260 J-wire. Simultaneous pressures were then obtained, which showed a mean gradient difference of a pproximately 44 mmHg from the LV and the aorta. This is in the setting of a significantly reduced ej ection fraction of 10% to 15%. Thus, his gradients were probably underestimated if anything. At thi s time, the pigtail catheter was removed over an Amplatz superstiff wire. A Pardeep 20 x 60 balloon wa s then placed across the aortic valve. Multiple sequential inflations occurred across the valve. Af ter multiple inflations, the balloon was removed. A pigtail catheter was placed in the LV. Simultan eous pressures were then obtained, which then showed a mean gradient difference of 5 mmHg for a net r eduction of 39 mmHg. The pigtail catheter was then removed and placed in the descending aorta where an abdominal aortogram was obtained, which showed patent descending aorta, patent bilateral common, e xternal, internal, and common femorals. However, the flow was very slow; thus, opacification of the right common femoral artery was limited. After these images were obtained, the pigtail catheter was removed. The 0.035 wire in the left groin was sutured in place. The patient tolerated the procedure well with no complications. Of note, the patient's systemic blood pressure increased significantly after the balloon valvuloplasty from a baseline of 100/70 to 120/70. IMPRESSION: Successful balloon aortic valvuloplasty reducing mean gradient difference of 44 mmHg to 5 mmHg for a net reduction of 39 mmHg. PLAN: The patient will be admitted back to the ICU setting. Dobutamine should be weaned down later today, hopefully to off later this evening, as well as having the IV Lasix reduced. Patient should h ave a repeat echo in 24 hours. Unfortunately, the patient's ejection fraction does not improve signi ficantly with this procedure. Choices are limited for further therapy, i.e., open heart surgery or e alia TAVR, as he is a very, very high risk candidate. Clinical course will determine patient's future options. /[id number]/MODL
--- NOTE | 2017-02-14 13:35 | CPEKG ---
Heart Rate: 86 RR Interval: 698 P-R Interval: 192 QRSD Interval: 98 QT Interval: 400 QTC Interval: 479 P [place]: 29 QRS [place]: -48 T Wave [place]: 107 EKG Severity - ABNORMAL ECG - EKG Impression: SINUS RHYTHM EKG Impression: PROBABLE LEFT ATRIAL ABNORMALITY EKG Impression: LAD, CONSIDER LAFB OR INFERIOR INFARCT EKG Impression: LEFT VENTRICULAR HYPERTROPHY EKG Impression: BORDERLINE PROLONGED QT INTERVAL Electronically Signed By: Radu Hammond 14-Feb-2017 14:13:52
[2017-02-14] MEDS ORDERED: DOBUTamine/DEXTROSE 250 ML IV SCH ×2 (14:00)
--- NOTE | 2017-02-14 14:34 | ASMTCMCOM ---
CM Note CM Note Notes: Spoke to patient and his son, Torin. Patient reports having a HC RN before his hospitalization. He can't remember what agency she works for, but son will check and get back to CM. Patient may need PT/OT as well? and may need home O2. Torin is from [place] and doesn't know how long he will be able to stay. CM to follow. Date Signed: 02/14/2017 02:33 PM Electronically Signed By:Bita Willard LCSW
--- NOTE | 2017-02-14 14:34 | ASMTCMCOM ---
CM Note CM Note Notes: Spoke to patient and his son, Torin. Patient reports having a HC RN before his hospitalization. He can't remember what agency she works for, but son will check and get back to CM. Patient may need PT/OT as well? and may need home O2. Torin is from [place] and doesn't know how long he will be able to stay. CM to follow. Date Signed: 02/14/2017 02:33 PM Electronically Signed By:Bita Willard LCSW
--- NOTE | 2017-02-14 14:34 | ASMTCMCOM ---
CM Note CM Note Notes: Spoke to patient and his son, Torin. Patient reports having a HC RN before his hospitalization. He can't remember what agency she works for, but son will check and get back to CM. Patient may need PT/OT as well? and may need home O2. Torin is from [place] and doesn't know how long he will be able to stay. CM to follow. Date Signed: 02/14/2017 02:33 PM Electronically Signed By:Bita Willard LCSW
[2017-02-14] MEDS: ATORVASTATIN CALCIUM 20 MG TAB PO SCH ×2 (16:48)
[2017-02-14] MEDS: traZODone 50 MG TAB PO SCH ×2 (20:55)
[2017-02-15 04:53] LABS: PLATELET COUNT 153 10^3/uL (150-400)
[2017-02-15] MEDS: CHOLECALCIFEROL VIT D3 1,000 UNITS TAB PO SCH ×2 (08:43)
[2017-02-15] MEDS: SPIRONOLACTONE 50 MG TAB PO SCH ×2 (08:43)
[2017-02-15] MEDS: POTASSIUM CL 20 MEQ/15 ML UDCUP PO SCH ×2 (08:43)
[2017-02-15] MEDS: FUROSEMIDE 40 MG/4 ML VIAL IVP SCH ×4 (08:43→17:34)
[2017-02-15] MEDS: SENNOSIDES/DOCUSATE SODIUM TAB PO SCH ×4 (09:17→22:28)
--- NOTE | 2017-02-15 10:08 | ECHO ---
[email or web address] [address] Main: [phone] Fax: [email or web address] Echocardiogram Name: MAGALY MANTILLA MR#: [id number] Study Date: 02/15/2017 Study Time: 07:59 AM Date of : 1940 Age: 77 year(s) Height: 175.3 cm (69 in.) Weight: 67.59 kg (149 lb.) BSA: 1.82 m2 Gender: Male Examination: Limited Echo Indication: S/P Aortic Valve Valvuloplasty Image Quality: Contrast: Requested by: Juan R Adams BP: 141 mmHg/71 mmHg Heart Rate: Rhythm: Indication: S/P Aortic Valve Valvuloplasty Procedure Staff Canvas Cutter Machine: Adebayo Peres Reading Physician: Dylon Garcia Requesting Provider: Conclusions: Severely reduced systolic LV function. The ejection fraction is estimated to be 20-25 %. Severe aortic valve calcification is present. Mild to moderate aortic valve regurgitation. The peak valve velocity is 3.07 m/s. Aortic valve peak gradient is 38 mmHg. Aortic valve mean gradient is 27 mmHg. Dilatation of the aorta. No pericardial effusion. Measurements: Chambers Valvular Assessment AV/MV Valvular Assessment TV/PV Normal Normal Normal Name Value Range Name Value Range Name Value Range IVSd (2D): 1.3 cm (0.6 cm-1.1 AV Vmax: 3.07 m/s (1 m/s-1.7 cm) m/s) LVDd (2D): 5.0 cm (4.2 cm-5.9 AV maxP mmHg ( - ) cm) AV meanP mmHg ( - ) LVDs (2D): 4.6 cm (2.1 cm-4 JANEE (VTI): 0.8 cm ( - ) cm) AR (PHT): 270 ms ( - ) LVPWd (2D): 1.0 cm (0.6 cm-1 cm) LVOTd 2.6 cm 2.6 cm mm LVEF (BP): 21 % (>=55 %) Visual EF: 15 % EF Range: 20-25 % Continued Measurements: Valvular Assessment AV/MV Patient: MAGALY MANTILLA Study Date: 02/15/2017 Page 1 of 2 07:59 AM Name Value AR Vmax: 2.43 cm/s Findings: Left Ventricle: Mildly to moderately dilated left ventricle. Severely reduced systolic LV function. The ejection fraction is estimated to be 20-25 %. The ejection fraction is visually estimated to be 15 %. All scored wall segments are hypokinetic. Right Ventricle: Normal size right ventricle. Mildly reduced RV function. Mitral Valve: There is mild thickening of the mitral valve leaflets. Aortic Valve: Severe aortic valve calcification is present. Mild to moderate aortic valve regurgitation. The peak valve velocity is 3.07 m/s. Aortic valve peak gradient is 38 mmHg. Aortic valve mean gradient is 27 mmHg. Aorta: Dilatation of the aorta. Pericardium: No pericardial effusion. (No Signature Object) Wall Motion Scores Patient: MAGALY MANTILLA Study Date: 02/15/2017 Page 2 of 2 07:59 AM [id number]
--- NOTE | 2017-02-15 10:08 | ECHO ---
[email or web address] [address] [address] Main: [phone] Fax: Transthoracic Echocardiogram Name: MAGALY MANTILLA MR#: [id number] Study Date: 02/15/2017 Study Time: 07:59 AM Date of : 1940 Age: 77 year(s) Height: 175.3 cm (69 in.) Weight: 67.59 kg (149 lb.) BSA: 1.82 m2 Gender: Male Examination: Limited Echo Indication: S/P Aortic Valve Valvuloplasty Image Quality: Contrast: Requested by: Juan R Adams BP: 141 mmHg/71 mmHg Heart Rate: Rhythm: Indication: S/P Aortic Valve Valvuloplasty Procedure Staff [employer] Gin Yard Supervisor: Adebayo Peres Reading Physician: Dylon Garcia Requesting Provider: Conclusions: Severely reduced systolic LV function. The ejection fraction is estimated to be 20-25 %. Severe aortic valve calcification is present. Mild to moderate aortic valve regurgitation. The peak valve velocity is 3.07 m/s. Aortic valve peak gradient is 38 mmHg. Aortic valve mean gradient is 27 mmHg. Dilatation of the aorta. No pericardial effusion. Measurements: Chambers Valvular Assessment AV/MV Valvular Assessment TV/PV Normal Normal Normal Name Value Range Name Value Range Name Value Range IVSd (2D): 1.3 cm (0.6 cm-1.1 AV Vmax: 3.07 m/s (1 m/s-1.7 cm) m/s) LVDd (2D): 5.0 cm (4.2 cm-5.9 AV maxP mmHg ( - ) cm) AV meanP mmHg ( - ) LVDs (2D): 4.6 cm (2.1 cm-4 JANEE (VTI): 0.8 cm ( - ) cm) AR (PHT): 270 ms ( - ) LVPWd (2D): 1.0 cm (0.6 cm-1 cm) LVOTd 2.6 cm 2.6 cm mm LVEF (BP): 21 % (>=55 %) Visual EF: 15 % EF Range: 20-25 % Continued Measurements: Valvular Assessment AV/MV Patient: MAGALY MANTILLA Study Date: 02/15/2017 Page 1 of 2 07:59 AM Name Value AR Vmax: 2.43 cm/s Findings: Left Ventricle: Mildly to moderately dilated left ventricle. Severely reduced systolic LV function. The ejection fraction is estimated to be 20-25 %. The ejection fraction is visually estimated to be 15 %. All scored wall segments are hypokinetic. Right Ventricle: Normal size right ventricle. Mildly reduced RV function. Mitral Valve: There is mild thickening of the mitral valve leaflets. Aortic Valve: Severe aortic valve calcification is present. Mild to moderate aortic valve regurgitation. The peak valve velocity is 3.07 m/s. Aortic valve peak gradient is 38 mmHg. Aortic valve mean gradient is 27 mmHg. Aorta: Dilatation of the aorta. Pericardium: No pericardial effusion. (No Signature Object) Wall Motion Scores Patient: MAGALY MANTILLA Study Date: 02/15/2017 Page 2 of 2 07:59 AM [id number]
--- NOTE | 2017-02-15 10:08 | ECHO ---
[email or web address] [address] [address] Main: [phone] Fax: Transthoracic Echocardiogram Name: MAGALY MANTILLA MR#: [id number] Study Date: 02/15/2017 Study Time: 07:59 AM Date of : 1940 Age: 77 year(s) Height: 175.3 cm (69 in.) Weight: 67.59 kg (149 lb.) BSA: 1.82 m2 Gender: Male Examination: Limited Echo Indication: S/P Aortic Valve Valvuloplasty Image Quality: Contrast: Requested by: Juan R Adams BP: 141 mmHg/71 mmHg Heart Rate: Rhythm: Indication: S/P Aortic Valve Valvuloplasty Procedure Staff Histology Specialist: Adebayo Peres Reading Physician: Dylon Garcia Requesting Provider: Conclusions: Severely reduced systolic LV function. The ejection fraction is estimated to be 20-25 %. Severe aortic valve calcification is present. Mild to moderate aortic valve regurgitation. The peak valve velocity is 3.07 m/s. Aortic valve peak gradient is 38 mmHg. Aortic valve mean gradient is 27 mmHg. Dilatation of the aorta. No pericardial effusion. Measurements: Chambers Valvular Assessment AV/MV Valvular Assessment TV/PV Normal Normal Normal Name Value Range Name Value Range Name Value Range IVSd (2D): 1.3 cm (0.6 cm-1.1 AV Vmax: 3.07 m/s (1 m/s-1.7 cm) m/s) LVDd (2D): 5.0 cm (4.2 cm-5.9 AV maxP mmHg ( - ) cm) AV meanP mmHg ( - ) LVDs (2D): 4.6 cm (2.1 cm-4 JANEE (VTI): 0.8 cm ( - ) cm) AR (PHT): 270 ms ( - ) LVPWd (2D): 1.0 cm (0.6 cm-1 cm) LVOTd 2.6 cm 2.6 cm mm LVEF (BP): 21 % (>=55 %) Visual EF: 15 % EF Range: 20-25 % Continued Measurements: Valvular Assessment AV/MV Patient: MAGALY MANTILLA Study Date: 02/15/2017 Page 1 of 2 07:59 AM Name Value AR Vmax: 2.43 cm/s Findings: Left Ventricle: Mildly to moderately dilated left ventricle. Severely reduced systolic LV function. The ejection fraction is estimated to be 20-25 %. The ejection fraction is visually estimated to be 15 %. All scored wall segments are hypokinetic. Right Ventricle: Normal size right ventricle. Mildly reduced RV function. Mitral Valve: There is mild thickening of the mitral valve leaflets. Aortic Valve: Severe aortic valve calcification is present. Mild to moderate aortic valve regurgitation. The peak valve velocity is 3.07 m/s. Aortic valve peak gradient is 38 mmHg. Aortic valve mean gradient is 27 mmHg. Aorta: Dilatation of the aorta. Pericardium: No pericardial effusion. (No Signature Object) Wall Motion Scores Patient: MAGALY MANTILLA Study Date: 02/15/2017 Page 2 of 2 07:59 AM [id number]
--- NOTE | 2017-02-15 11:08 | PDCARPN ---
Cardiology Progress Note Chief Complaint: Patient reports significant improvement in shortness of breath. Continues to feel fatigued. Assessment/Plan: Assessment: 67-year-old male with significant history of critical aortic stenosis (peak gradient 32, mean gradient 22), acute systolic heart failure with with EF 10% and concurrent RV dysfunction, and COPD. Admitted for worsening heart failure with recent reduction of EF from 40 down to 10%. Noted significant elevated LFTs on admission, started on dobutamine drip in diuretic therapy. Underwent thoracentesis to the right chest on 02/13 with 1200 mL of clear fluid removed. Patient underwent balloon aortic valvuloplasty on 02/14. Today patient status post balloon aortic valvuloplasty 1 day. He denies of any chest pain or pressure. Has had no bleeding issues overnight, left groin site without redness swelling drainage ecchymosis or hematoma. +1 distal pulses bilateral. Patient has been able to be titrated off of dobutamine, with holding systolic blood pressure at 110. Weight is down today to 65.5 kilos. Repeated echocardiogram done this morning showing severely reduced systolic LV systolic function, EF estimated between 20 in 25%, severe aortic valve calcification is present, [id number] aortic valve regurgitation, peak velocity across the aortic valve is 3.07 m/s, peak gradient at 38 mm Hg, mean gradient at 27 mm Hg , dilated aorta. Laboratory studies today show BUN 24, creatinine 0.9. AST and ALT continue to improve, today 105 and 317. Patient noted to have 12 beat run of wide complex tachycardia, appears to be SVT with aberrancy. Plan: 1. Critical aortic stenosis: s/p balloon aortic valvuloplasty yesterday, tolerated well. Repeated echocardiogram done today shows improvement in ejection fraction to 20-25%, diyv-xn-wibxlxqa AI, peak gradient of 38 mm Hg, mean gradient of 27 mm Hg. 2. Acute systolic heart failure: Patient's weight is down 2 kilos from yesterday. Renal function remained stable. Continue on current dosage of Lasix and Aldactone. Decrease potassium supplement. Hold off of beta-blockers and Sameer inhibitors at this time per Dr Garcia. 3. Pleural effusion: Status post right-sided thoracentesis 02/13, 1200 mL out. 4. Elevated LFTs: Probably related to recent reduction of cardiac output and systolic heart failure, continues to improve. Continue to monitor. 5. Hyperlipidemia: Has been continue on home dosing of atorvastatin. 6. DVT prophylaxis: Continue to hold off on restarting Lovenox at this time status post valvuloplasty left femoral artery axis. Consider restarting in a.m.. Will plan on patient being transferred to PCU today. 02/15/17 11:11 Subjective: Patient denies of any chest pressure, pain, palpitations, orthopnea, lightheadedness, near-syncope or syncopal event Reviewed/Discussed With: other (Dr Garcia) Objective: Vital Signs (8 Hrs) Temp Pulse Resp BP Pulse Ox 02/15/17 08:57 36.4 C 85 104/57 L 98 02/15/17 06:00 86 12 85/51 L 97 02/15/17 04:00 36.7 C 83 12 91/56 L 97 Intake/Output (24 Hrs) 02/14/17 02/15/17 02/16/17 05:59 05:59 05:59 Intake Total 1517 647 340 Output Total 2550 1150 250 Balance -1033 -503 90 Intake: Oral (ml) 1250 600 340 IV Intake (ml) 47 IV Infused (ml) 267 DOBUTamine/DEXTROSE 250 267 ml @ Titrate IV CONT RENETTA Rx#:[id number] Output: Urine (ml) 2550 1150 250 Urinal 2550 1150 250 Other: Weight 67.6 kg 65.5 kg Number of Voids Urinal 4 1 1 Number of Stools Urinal 1 1 Result Diagrams: 02/15/17 04:30 02/15/17 04:30 - Physical Exam Constitutional: WDWN, no apparent distress Ears, Nose, Mouth, Throat: moist mucous membranes Cardiovascular: regular rate and rhythm, systolic murmur (2/6 normal right upper chest.), jugular vein distention (4-5 cm above sternal notch at a 45 degree angle), pulses symmetric bilat, No carotid bruit Peripheral Pulses: 1+: dorsalis-pedis (R), dorsalis-pedis (L), 2+: carotid (R), carotid (L) Respiratory: other (Lungs diminished in right lower lobe comma no rhonchi, rales , or wheezing noted. No accessary muscle use, no intercostal muscle retraction noted.) Gastrointestinal: normoactive bowel sounds Skin: no rashes, no edema, other (Left groin site, catheter insertion site, with no redness, swelling, drainage, ecchymosis, hematoma. No auscultated bruit over site.) Neurologic: AAOx3 Psychiatric: cooperative, interactive, following commands ICD10 Worksheet Patient Problems: Problems Problem Status Onset Acute on chronic systolic CHF (congestive heart failure), NYHA class 4 Acute Acute on chronic systolic CHF (congestive heart failure), NYHA class 4 Acute Aortic stenosis Acute Aortic stenosis Acute
[2017-02-15] MEDS ORDERED: IOPAMIDOL (ISOVUE 370) 100 ML BTL IV ONE ×2 (16:32)
[2017-02-15] MEDS ORDERED: METOPROLOL TARTRATE 5 MG/5 ML INJ ONE ×2 (17:09)
[2017-02-15] MEDS: ATORVASTATIN CALCIUM 20 MG TAB PO SCH ×2 (17:34)
[2017-02-15] MEDS ORDERED: HEPARIN/DEXTROSE 500 ML IV SCH ×2 (20:42)
[2017-02-15] MEDS ORDERED: HEPARIN 10,000 UNIT/10 ML MDV IVP PRN ×2 (20:42)
[2017-02-15] MEDS: traZODone 50 MG TAB PO SCH ×2 (22:28)
[2017-02-16] MEDS: FUROSEMIDE 40 MG/4 ML VIAL IVP SCH ×2 (08:54)
[2017-02-16] MEDS: CARVEDILOL 3.125 MG TAB PO SCH ×4 (09:06→17:53)
[2017-02-16] MEDS: SENNOSIDES/DOCUSATE SODIUM TAB PO SCH ×4 (09:08→22:41)
[2017-02-16] MEDS: POTASSIUM CL 20 MEQ/15 ML UDCUP PO SCH ×2 (09:09)
[2017-02-16] MEDS: CHOLECALCIFEROL VIT D3 1,000 UNITS TAB PO SCH ×2 (09:10)
[2017-02-16] MEDS: SPIRONOLACTONE 50 MG TAB PO SCH ×2 (09:10)
--- NOTE | 2017-02-16 14:54 | ASMTCMCOM ---
CM Note CM Note Notes: 02/16/2017 Case Management Note Reviewed chart, spoke w/PT. PT recommending outpatient cardiac rehab. Case Management d/c poc: Home with family support when medically stable with follow up as directed. Case Management available should needs change. Date Signed: 02/16/2017 02:54 PM Electronically Signed By:Brenda Cole RN
--- NOTE | 2017-02-16 15:31 | ECHO ---
[email or web address] [address] [address] Main: [phone] Fax: Transthoracic Echocardiogram Name: MAGALY MANTILLA MR#: [id number] Study Date: 02/16/2017 Study Time: 11:04 AM Date of : 1940 Age: 77 year(s) Height: 175.3 cm (69 in.) Weight: 65.77 kg (145 lb.) BSA: 1.8 m2 Gender: Male Examination: Indication: Post Aortic Valvuloplasty, New RA thrombus Image Quality: Contrast: Requested by: Juan R Adams BP: 97 mmHg/67 mmHg Heart Rate: Rhythm: Normal sinus rhythm Indication: Post Aortic Valvuloplasty, New RA thrombus Procedure Staff Surgical Dental Assistant: Adebayo Peres Reading Physician: Georgi Monzon Requesting Provider: Conclusions: This is a limited echocardiogram to evaluate for the presence of a possible right atrial thrombus that was seen on chest CT scan. Generally, the right atrium appears to be free of masses. In one view there is a 1.4 x 1.28 cm echodensity appreciated along the posterior aspect of the right atrium. Additionally, there may be an area of thrombus laminated along the posterior wall. There is, however, no definitive evidence of mass or thrombus. Measurements: Chambers Valvular Assessment AV/MV Valvular Assessment TV/PV Normal Normal Normal Name Value Range Name Value Range Name Value Range Visual EF: 15 % TR Vmax: 2.44 mm/s ( - ) TR PGmax: 24 mmHg ( - ) syst. PAP: 29 mmHg ( - ) Continued Measurements: Valvular Assessment TV/PV Name Value CVP (est.): 5 mmHg Findings: Left Ventricle: The ejection fraction is visually estimated to be 15 %. Tricuspid Valve: Trivial to mild tricuspid valve regurgitation. Right Ventricular systolic pressure is measured at 29 mmHg. Exam Comments: There is no obvious RA thrombus. There appears to be shadowing in some views from the aortic Patient: MAGALY MANTILLA Study Date: 02/16/2017 Page 1 of 2 11:04 AM valve but not clear thrombus.. (No Signature Object) Patient: MAGALY MANTILLA Study Date: 02/16/2017 Page 2 of 2 11:04 AM [id number]
--- NOTE | 2017-02-16 15:31 | ECHO ---
[email or web address] [address] [address] Main: [phone] Fax: Transthoracic Echocardiogram Name: MAGALY MANTILLA MR#: [id number] Study Date: 02/16/2017 Study Time: 11:04 AM Date of : 1940 Age: 77 year(s) Height: 175.3 cm (69 in.) Weight: 65.77 kg (145 lb.) BSA: 1.8 m2 Gender: Male Examination: Indication: Post Aortic Valvuloplasty, New RA thrombus Image Quality: Contrast: Requested by: Juan R Adams BP: 97 mmHg/67 mmHg Heart Rate: Rhythm: Normal sinus rhythm Indication: Post Aortic Valvuloplasty, New RA thrombus Procedure Staff Chief Fishery Division: Adebayo Peres Reading Physician: Georgi Monzon Requesting Provider: Conclusions: This is a limited echocardiogram to evaluate for the presence of a possible right atrial thrombus that was seen on chest CT scan. Generally, the right atrium appears to be free of masses. In one view there is a 1.4 x 1.28 cm echodensity appreciated along the posterior aspect of the right atrium. Additionally, there may be an area of thrombus laminated along the posterior wall. There is, however, no definitive evidence of mass or thrombus. Measurements: Chambers Valvular Assessment AV/MV Valvular Assessment TV/PV Normal Normal Normal Name Value Range Name Value Range Name Value Range Visual EF: 15 % TR Vmax: 2.44 mm/s ( - ) TR PGmax: 24 mmHg ( - ) syst. PAP: 29 mmHg ( - ) Continued Measurements: Valvular Assessment TV/PV Name Value CVP (est.): 5 mmHg Findings: Left Ventricle: The ejection fraction is visually estimated to be 15 %. Tricuspid Valve: Trivial to mild tricuspid valve regurgitation. Right Ventricular systolic pressure is measured at 29 mmHg. Exam Comments: There is no obvious RA thrombus. There appears to be shadowing in some views from the aortic Patient: MAGALY MANTILLA Study Date: 02/16/2017 Page 1 of 2 11:04 AM valve but not clear thrombus.. (No Signature Object) Patient: MAGALY MANTILLA Study Date: 02/16/2017 Page 2 of 2 11:04 AM [id number]
--- NOTE | 2017-02-16 15:31 | ECHO ---
[email or web address] [address] [address] Main: [phone] Fax: Transthoracic Echocardiogram Name: MAGALY MANTILLA MR#: [id number] Study Date: 02/16/2017 Study Time: 11:04 AM Date of : 1940 Age: 77 year(s) Height: 175.3 cm (69 in.) Weight: 65.77 kg (145 lb.) BSA: 1.8 m2 Gender: Male Examination: Indication: Post Aortic Valvuloplasty, New RA thrombus Image Quality: Contrast: Requested by: Juan R Adams BP: 97 mmHg/67 mmHg Heart Rate: Rhythm: Normal sinus rhythm Indication: Post Aortic Valvuloplasty, New RA thrombus Procedure Staff Winder Operator: Adebayo Peres Reading Physician: Georgi Monzon Requesting Provider: Conclusions: This is a limited echocardiogram to evaluate for the presence of a possible right atrial thrombus that was seen on chest CT scan. Generally, the right atrium appears to be free of masses. In one view there is a 1.4 x 1.28 cm echodensity appreciated along the posterior aspect of the right atrium. Additionally, there may be an area of thrombus laminated along the posterior wall. There is, however, no definitive evidence of mass or thrombus. Measurements: Chambers Valvular Assessment AV/MV Valvular Assessment TV/PV Normal Normal Normal Name Value Range Name Value Range Name Value Range Visual EF: 15 % TR Vmax: 2.44 mm/s ( - ) TR PGmax: 24 mmHg ( - ) syst. PAP: 29 mmHg ( - ) Continued Measurements: Valvular Assessment TV/PV Name Value CVP (est.): 5 mmHg Findings: Left Ventricle: The ejection fraction is visually estimated to be 15 %. Tricuspid Valve: Trivial to mild tricuspid valve regurgitation. Right Ventricular systolic pressure is measured at 29 mmHg. Exam Comments: There is no obvious RA thrombus. There appears to be shadowing in some views from the aortic Patient: MAGALY MANTILLA Study Date: 02/16/2017 Page 1 of 2 11:04 AM valve but not clear thrombus.. (No Signature Object) Patient: MAGALY MANTILLA Study Date: 02/16/2017 Page 2 of 2 11:04 AM [id number]
[2017-02-16] MEDS: TORSEMIDE 20 MG TAB PO SCH ×2 (15:37)
--- NOTE | 2017-02-16 16:34 | ASMTCMCOM ---
CM Note CM Note Notes: 02/16/2017 Case Management Note At request of Juan R Adams met w/pt to arrange home health services. Pt unhappy with current services provided by At [facility] [phone]. Discussed multiple different agencies, pt chose [facility]. Notified At home health of discontinuation of services as well as notified [facility] of referral. [facility] accepted pt. Case management d/c poc: Home with Home health RN PT CHIEF METER READER when medically stable. Case management to follow. Date Signed: 02/16/2017 04:33 PM Electronically Signed By:Brenda Cole RN
--- NOTE | 2017-02-16 16:34 | ASMTCMCOM ---
CM Note CM Note Notes: 02/16/2017 Case Management Note At request of Juan R Adams met w/pt to arrange home health services. Pt unhappy with current services provided by At [facility] [phone]. Discussed multiple different agencies, pt chose [facility]. Notified At home health of discontinuation of services as well as notified [facility] of referral. [facility] accepted pt. Case management d/c poc: Home with Home health RN PT DIRECTOR OF CRITICAL CARE when medically stable. Case management to follow. Date Signed: 02/16/2017 04:33 PM Electronically Signed By:Brenda Cole RN
--- NOTE | 2017-02-16 16:34 | ASMTCMCOM ---
CM Note CM Note Notes: 02/16/2017 Case Management Note At request of Juan R Adams met w/pt to arrange home health services. Pt unhappy with current services provided by At [facility] [phone]. Discussed multiple different agencies, pt chose [facility]. Notified At home health of discontinuation of services as well as notified [facility] of referral. [facility] accepted pt. Case management d/c poc: Home with Home health RN PT OPTHALMIC TECH when medically stable. Case management to follow. Date Signed: 02/16/2017 04:33 PM Electronically Signed By:Brenda Cole RN
--- NOTE | 2017-02-16 16:43 | PDCARPN ---
Cardiology Progress Note Chief Complaint: Patient reports ongoing fatigue symptoms. Assessment/Plan: Assessment: 67-year-old male with significant history of critical aortic stenosis (peak gradient 32, mean gradient 22), acute systolic heart failure with with EF 10% and concurrent RV dysfunction, and COPD. Admitted for worsening heart failure with recent reduction of EF from 40 down to 10%. Noted significant elevated LFTs on admission, started on dobutamine drip in diuretic therapy. Underwent thoracentesis to the right chest on 02/13 with 1200 mL of clear fluid removed. Patient underwent balloon aortic valvuloplasty on 02/14. Patient underwent CTA of the chest and pelvis yesterday, questioning possible thrombus in right atrium and left atrial appendage. Also small volume segmental pulmonary embolism noted in right mid lobe. Repeated limited echo cardiogram done today showing RA free of mass, but in one view a 1.4 x 1.2 8 cm echodensity appreciated along the posterior aspect of the RA. Additionally there moved may be an area of thrombus laminated along the posterior wall. However no definitive evidence of mass or thrombus was seen. Repeated chest x- ray today showing increased right pleural effusion. Laboratory studies drawn show continue improvement in LFTs comma with AST and ALT 69 in 228. Sodium level and chloride down at 129 and 92. Repeated chest x-ray done today showing right pleural effusion returning, reviewed with Dr. Pham, who felt no need for patient to have repeated thoracentesis at this time. Patient reports no chest pain or pressure, reports SOB continues to improve. Does admit ongoing fatigue symptoms. Continuous cardiac monitoring showing sinus rhythm, occasional premature ventricular contraction, no malignant arrhythmias. Plan: 1. Critical aortic stenosis: s/p balloon aortic valvuloplasty yesterday, tolerated well. Post valvuloplasty echocardiogram done today shows improvement in ejection fraction to 20-25%, [id number]-bs-bjemqoah AI, peak gradient of 38 mm Hg, mean gradient of [address] Garcia feel he is not at TAVR candidate at this time. Will plan for him to follow-up Dr. cristian laughlin of cardiothoracic surgery in 1 -2 weeks. 2. PE possible thrombus in RA: Found on CTA yesterday, small PE, patient asymptomatic, SpO2 greater than 90%. Has been started on heparin drip last evening, sharon, will transition him over to Eliquis at 10 mg p.o. twice daily for the next 7 days, then decreasing down to 5 mg p.o. twice daily with plans of him being on this for at least 3 to 6 months. Discussion with both patient and son regarding anticoagulation therapy, risks and benefits. They verbalize understanding and are wanting to proceed. 3. Acute systolic heart failure: Patient's weight is unchanged from yesterday. Noted hyponatremic with sodium at 129. Decrease Aldactone to 25 mg p. o. q.day. Transition to Demadex at 40 mg p. o. twice daily. Start on low-dose carvedilol at 3.125 mg twice daily. 4. Pleural effusion: Status post right-sided thoracentesis 02/13, 1200 mL out. Cytology negative. Repeated chest x-ray today show potentially recurrence, reviewed with pulmonology, who felt no need for repeated thoracentesis at this time. Continue diuretic therapy as mentioned above. 5. Elevated LFTs: Probably related to recent reduction of cardiac output and systolic heart failure, continues to improve. Continue to monitor. 6. Hyponatremia: Sodium down to 129, Aldactone decreased to 25 mg p.o. q.day. Continue diuresis as above. Fluid restriction 1800 mL q.day. 7. Hyperlipidemia: Has been continue on home dosing of atorvastatin. 6. DVT prophylaxis: On heparin drip, transitioning to Eliquis. Potentially, patient can be discharged in the next 1-2 days, I have discussed this discharge planning, to assure that he has home health in place. Have also had a long discussion with the patient and son about all testing, and plan for the next few weeks. 02/16/17 16:32 Subjective: Patient reports no chest pressure or pain, reports shortness of breath continues to improve, denies of any palpitations, lightheadedness, near-syncope or syncopal events. Does admit ongoing fatigue symptoms. Reviewed/Discussed With: family (Patient's son Torin), multidisciplinary team ( Discharge planning), other (Dr Monzon and Dr Zigeler) Objective: Vital Signs (8 Hrs) Temp Pulse Resp BP Pulse Ox 02/16/17 15:13 36.6 C 86 16 103/66 93 02/16/17 11:08 36.6 C 88 20 97/67 L 02/16/17 09:20 36.4 C 88 20 98/72 L 92 02/16/17 09:06 87 98/72 L Intake/Output (24 Hrs) 02/15/17 02/16/17 02/17/17 05:59 05:59 05:59 Intake Total 647 540 700 Output Total 1150 1450 Balance -503 -910 700 Intake: Oral (ml) 600 540 700 IV Intake (ml) 47 Output: Urine (ml) 1150 1450 Urinal 1150 1450 Other: Weight 65.5 kg 66.2 kg 66.134 kg Number of Voids Urinal 1 1 Number of Stools Urinal 1 1 1 Result Diagrams: 02/15/17 04:30 02/16/17 04:20 - Physical Exam Constitutional: WDWN, no apparent distress Ears, Nose, Mouth, Throat: moist mucous membranes Cardiovascular: regular rate and rhythm, no rubs, systolic murmur (3/6 upper chest.), jugular vein distention (5-6 cm above sternal notch at a 90 degree angle.), pulses symmetric bilat, No carotid bruit Peripheral Pulses: 1+: dorsalis-pedis (R), dorsalis-pedis (L), 2+: carotid (R), carotid (L) Respiratory: other (Diminished in right lower lobe, no rales noted, no accessory muscle use, no intercostal muscle retraction noted.) Gastrointestinal: normoactive bowel sounds Skin: warm, no edema, other (Left groin site, catheter insertion site for balloon valvuloplasty, no redness, swelling, drainage, or ecchymosis. No hematoma, no auscultated bruit.) Neurologic: AAOx3 Psychiatric: cooperative, interactive, following commands ICD10 Worksheet Patient Problems: Problems Problem Status Onset Acute on chronic systolic CHF (congestive heart failure), NYHA class 4 Acute Acute on chronic systolic CHF (congestive heart failure), NYHA class 4 Acute Aortic stenosis Acute Aortic stenosis Acute
[2017-02-16] MEDS: ATORVASTATIN CALCIUM 20 MG TAB PO SCH ×2 (17:53)
[2017-02-16] MEDS: APIXABAN 5 MG TAB PO SCH ×2 (21:00)
[2017-02-16] MEDS: traZODone 50 MG TAB PO SCH ×2 (23:26)
[2017-02-17] MEDS: APIXABAN 5 MG TAB PO SCH ×4 (08:36→21:27)
[2017-02-17] MEDS: SENNOSIDES/DOCUSATE SODIUM TAB PO SCH ×4 (08:37→21:27)
[2017-02-17] MEDS: CARVEDILOL 3.125 MG TAB PO SCH ×4 (08:37→18:15)
[2017-02-17] MEDS: CHOLECALCIFEROL VIT D3 1,000 UNITS TAB PO SCH ×2 (08:37)
[2017-02-17] MEDS: POTASSIUM CL 20 MEQ/15 ML UDCUP PO SCH ×2 (08:38)
[2017-02-17] MEDS: SPIRONOLACTONE 25 MG TAB PO SCH ×2 (08:38)
[2017-02-17] MEDS: TORSEMIDE 20 MG TAB PO SCH ×4 (10:08→14:51)
--- NOTE | 2017-02-17 12:27 | ASMTCMCOM ---
CM Note CM Note Notes: Chart reviewed. Met with patient to discuss and verify home address and phone number. He is to go home with HHC via [facility]. Spoke with Juan R Adams and pt is likely to dc this pm. Home health care aware. CM to follow, Date Signed: 02/17/2017 12:26 PM Electronically Signed By:Jillian Lundberg RN
--- NOTE | 2017-02-17 12:27 | ASMTCMCOM ---
CM Note CM Note Notes: Chart reviewed. Met with patient to discuss and verify home address and phone number. He is to go home with HHC via [facility]. Spoke with Juan R Adams and pt is likely to dc this pm. Home health care aware. CM to follow, Date Signed: 02/17/2017 12:26 PM Electronically Signed By:Jillian Lundberg RN
--- NOTE | 2017-02-17 12:27 | ASMTCMCOM ---
CM Note CM Note Notes: Chart reviewed. Met with patient to discuss and verify home address and phone number. He is to go home with HHC via [facility]. Spoke with Juan R Adams and pt is likely to dc this pm. Home health care aware. CM to follow, Date Signed: 02/17/2017 12:26 PM Electronically Signed By:Jillian Lundberg RN
--- NOTE | 2017-02-17 16:01 | PDCARPN ---
Cardiology Progress Note Chief Complaint: Patient reports Dyspnea on exertion walking 200 feet. Reported mild lightheadedness when standing. Assessment/Plan: Assessment: 67-year-old male with significant history of critical aortic stenosis (peak gradient 32, mean gradient 22), acute systolic heart failure with with EF 10% and concurrent RV dysfunction, and COPD. Admitted for worsening heart failure with recent reduction of EF from 40 down to 10%. Noted significant elevated LFTs on admission, started on dobutamine drip and diuretic therapy. Underwent thoracentesis to the right chest on 02/13 with 1200 mL of clear fluid removed. Patient underwent balloon aortic valvuloplasty on 02/14. Limited Echo on 02/15 showed 1mprovement in ejection fraction to 20-25%, excz-hc-gryehhrs AI, peak gradient of 38 mm Hg, mean gradient of 27 mm Hg CTA of Chest done on 02/15 showed questioning possible thrombus in right atrium and left atrial appendage. Also small volume segmental pulmonary embolism noted in right mid lobe. Limit Echo on 02/16 showing RA free of mass, but in one view a 1.4 x 1.2 8 cm echodensity appreciated along the posterior aspect of the RA. Additionally there moved may be an area of thrombus laminated along the posterior wall. However no definitive evidence of mass or thrombus was seen. Today, patient up in walking the unit, does report mild lightheadedness with positional changes, no significant hypotension noted overnight. Patient has remained in sinus rhythm with no malignant arrhythmias or pauses noted. His weight remained stable with switching to oral diuretics. Sodium level has improved to 133 today. AST and ALT both improved, at 47 and 187 today. Patient reports no significant chest pain does report mild shortness of breath after walking 200 feet. Plan: 1. Critical aortic stenosis: s/p balloon aortic valvuloplasty yesterday, tolerated well. Post valvuloplasty echocardiogram done on 02/15 shows improvement in ejection fraction to 20-25%, cgwg-cw-xmrtvxdt AI, peak gradient of 38 mm Hg, mean gradient of [address] Garcia feel he is not at TAVR candidate at this time. Appointment made for patient to see Dr. Patel on February 28 at 10:45 a.m. 2. PE possible thrombus in RA: Found on CTA In prep for possible TAVR, small PE, patient asymptomatic, SpO2 greater than 90%. heparin drip discontinued last evening, started on Eliquis at 10 mg p.o. twice daily, will continue this dosage for a total of 7 days, then decrease down to 5 mg p.o. twice daily. 3. Acute systolic heart failure: Patient's weight is unchanged from yesterday. Transition to Demadex at 40 mg p. o. twice daily. continue on low-dose of carvedilol at 3.125 mg p. o. twice daily. Due systolic blood pressure being mildly low, will not start on FLORIN-inhibitor or ARB at this time, consideration of starting as an outpatient. 4. Pleural effusion: Status post right-sided thoracentesis 02/13, 1200 mL out. Cytology negative. Repeated chest x-ray today show potentially recurrence, reviewed with pulmonology, who felt no need for repeated thoracentesis at this time. Continue diuretic therapy as mentioned above. 5. Shock Liver: Probably related to recent reduction of cardiac output and systolic heart failure, continues to improve. Continue to monitor. 6. Hyponatremia: improved today to 133, continue fluid restriction, diuresis , current Aldactone dosage. 7. Hyperlipidemia: Has been continue on home dosing of atorvastatin. 8. nocturnal hypoxia: Patient reports he wearing oxygen at home at night, status post previous discharge from [facility]. Reports that Medicare had not approved his home oxygen, and he has pain dkj-jj-vsvuxp for it. We will have him do an overnight oximetry study tonight for evaluation of the need nocturnal oxygen. 9. DVT prophylaxis: Patient on Eliquis. Patient potentially can be discharged home tomorrow. Follow-up appointments have been Made. 02/17/17 15:53 Subjective: Patient denies of any chest pressure or pain, reports orthopnea has improved, denies of any PND. reports no palpitations, near-syncope or syncopal events. Reviewed/Discussed With: multidisciplinary team (Discharge Planing and RT), other (Dr Hancock) Objective: Vital Signs (8 Hrs) Temp Pulse Resp BP Pulse Ox 02/17/17 14:52 115/104 H 02/17/17 12:09 36.4 C 96 18 93/64 L 96 02/17/17 10:02 106/75 96 02/17/17 09:32 94 02/17/17 07:55 20 Intake/Output (24 Hrs) 02/16/17 02/17/17 02/18/17 05:59 05:59 05:59 Intake Total 540 2216 Output Total 1450 550 500 Balance -910 1666 -500 Intake: Oral (ml) 540 1850 IV Infused (ml) 366 Heparin/Dextrose 500 ml @ 366 As Directed IV CONT RENETTA Rx#:[id number] Output: Urine (ml) 1450 550 500 Urinal 1450 550 500 Other: Weight 66.2 kg 66.134 kg 66.1 kg Number of Voids Urinal 1 1 Number of Stools Urinal 1 1 Result Diagrams: 02/17/17 05:10 02/17/17 05:10 - Physical Exam Constitutional: WDWN, no apparent distress Ears, Nose, Mouth, Throat: moist mucous membranes Cardiovascular: regular rate and rhythm, no rubs, no gallops, systolic murmur (3 /6 Systolic murmur of right upper chest.), jugular vein distention ( 4th 5 cm above sternal notch at a 45 degree angle), pulses symmetric bilat, No carotid bruit Peripheral Pulses: 2+: carotid (R), carotid (L) Respiratory: other ( lungs diminished in right lower base, no rhonchi, rales, or wheezing noted. No accessary muscle use, no intercostal muscle retraction noted.) Gastrointestinal: normoactive bowel sounds Skin: warm, no edema Neurologic: AAOx3 Psychiatric: cooperative, interactive, following commands ICD10 Worksheet Patient Problems: Problems Problem Status Onset Acute on chronic systolic CHF (congestive heart failure), NYHA class 4 Acute Acute on chronic systolic CHF (congestive heart failure), NYHA class 4 Acute Aortic stenosis Acute Aortic stenosis Acute
[2017-02-17] MEDS: ATORVASTATIN CALCIUM 20 MG TAB PO SCH ×2 (18:15)
[2017-02-17] MEDS: traZODone 50 MG TAB PO SCH ×2 (21:27)
[2017-02-18] MEDS: CHOLECALCIFEROL VIT D3 1,000 UNITS TAB PO SCH ×2 (09:51)
[2017-02-18] MEDS: POTASSIUM CL 20 MEQ/15 ML UDCUP PO SCH ×2 (09:52)
[2017-02-18] MEDS: SENNOSIDES/DOCUSATE SODIUM TAB PO SCH ×2 (09:52)
[2017-02-18] MEDS: APIXABAN 5 MG TAB PO SCH ×2 (09:52)
[2017-02-18] MEDS: CARVEDILOL 3.125 MG TAB PO SCH ×2 (10:26)
[2017-02-18] MEDS: TORSEMIDE 20 MG TAB PO SCH ×2 (10:27)
[2017-02-18] MEDS: SPIRONOLACTONE 25 MG TAB PO SCH ×2 (10:27)
--- NOTE | 2017-02-18 11:17 | PDHOMEO2F ---
Home Oxygen Face to Face Home Orders: I certify that a physician or a nurse practitioner or physician's construction management assistant has had a ikqu-da-yicr encounter with this patient on the date of this order due to the diagnosis listed, which relates to the primary reason the patient requires home oxygen. Alternative treatments have been tried, or considered, and deemed ineffective. It is anticipated that supplemental oxygen will result in improvement with treatment. Home oxygen qualifying diagnosis: Nocturnal Hypoxia Home oxygen secondary diagnosis: CHF SpO2 on room air (%): SpO2 less than 85% 00:57:52 Frequency of home oxygen needed: during sleep Home oxygen liters per minute: 2L Home oxygen delivery device: nasal cannula Concentrator: Yes E-tanks for mobility and back up: No I certify that, based on these findings, the home oxygen is medically necessary for this patient for the following length of time. Length of time home oxygen needed: 99 years
--- NOTE | 2017-02-18 11:17 | PDHOMEO2F ---
Home Oxygen Face to Face Home Orders: I certify that a physician or a nurse practitioner or physician's licensed loan officer assistant has had a ubjo-vp-iwtv encounter with this patient on the date of this order due to the diagnosis listed, which relates to the primary reason the patient requires home oxygen. Alternative treatments have been tried, or considered, and deemed ineffective. It is anticipated that supplemental oxygen will result in improvement with treatment. Home oxygen qualifying diagnosis: Nocturnal Hypoxia Home oxygen secondary diagnosis: CHF SpO2 on room air (%): SpO2 less than 85% 00:57:52 Frequency of home oxygen needed: during sleep Home oxygen liters per minute: 2L Home oxygen delivery device: nasal cannula Concentrator: Yes E-tanks for mobility and back up: No I certify that, based on these findings, the home oxygen is medically necessary for this patient for the following length of time. Length of time home oxygen needed: 99 years
--- NOTE | 2017-02-18 11:17 | PDHOMEO2F ---
Home Oxygen Face to Face Home Orders: I certify that a physician or a nurse practitioner or physician's contact center assistant has had a yosu-eo-ntlk encounter with this patient on the date of this order due to the diagnosis listed, which relates to the primary reason the patient requires home oxygen. Alternative treatments have been tried, or considered, and deemed ineffective. It is anticipated that supplemental oxygen will result in improvement with treatment. Home oxygen qualifying diagnosis: Nocturnal Hypoxia Home oxygen secondary diagnosis: CHF SpO2 on room air (%): SpO2 less than 85% 00:57:52 Frequency of home oxygen needed: during sleep Home oxygen liters per minute: 2L Home oxygen delivery device: nasal cannula Concentrator: Yes E-tanks for mobility and back up: No I certify that, based on these findings, the home oxygen is medically necessary for this patient for the following length of time. Length of time home oxygen needed: 99 years
--- NOTE | 2017-02-18 12:02 | ASMTCMCOM ---
CM Note CM Note Notes: Patient discharging home with plans for outpatient cardiac rehab. No additional case management discharge needs apparent at this time. Date Signed: 02/18/2017 12:02 PM Electronically Signed By:BRANDON Mckeon
--- NOTE | 2017-02-18 12:12 | CPEKG ---
Heart Rate: 73 RR Interval: 822 P-R Interval: 180 QRSD Interval: 106 QT Interval: 416 QTC Interval: 459 P [place]: 23 QRS [place]: -38 T Wave [place]: 141 EKG Severity - ABNORMAL ECG - EKG Impression: SINUS RHYTHM EKG Impression: VENTRICULAR PREMATURE COMPLEX EKG Impression: LVH WITH SECONDARY REPOLARIZATION ABNORMALITY Electronically Signed By: Radu Hammond 19-Feb-2017 09:45:23
--- NOTE | 2017-02-18 13:27 | GDS ---
[f rep st] DISCHARGE SUMMARY ADMIT DIAGNOSES: 1. Acute systolic congestive heart failure. 2. Critical aortic stenosis. 3. Valvular heart disease. DISCHARGE DIAGNOSES: 1. Acute on chronic systolic heart failure. 2. Pleural effusion. 3. Hyponatremia. 4. Hyperlipidemia. COURSE OF HOSPITALIZATION: This is a 77-year-old male, who was admitted for worsening heart failure. He had had a reduction of his ejection fraction from 40% to now 10% on admission. His liver function tests were elevated at time of admission. He was started on dobutamine drip and diuretic therapy. Additionally, he has a significant history for critical aortic stenosis and COPD. He thoracentesis right side chest on March 16 with 1200 mL of clear fluid removed. He then had a balloon aortic valvuloplasty on 02/14/2017. Limited echo on 02/15 showed improvement in ejection fraction to 20% to 25%, jhyv-ys-gmutmjsd AI, peak gradient of 38. CT of the chest on 02/15 showed questionable possible thrombus in the right atrium and left atrial appendage. He also had a small volume segmental pulmonary embolism in the right mid lobe. Limited echo on 02/16 showed right atrial free of mass, but in 1 view, a 1.4 x 1.28 cm endo density appreciated along the posterior aspect of the RA. Additionally, it was thought there may be an area of thrombus laminated along the posterior wall. No definitive evidence of mass or thrombus was seen. On admission, he became very dyspneic with exertion, walking only 200 feet. He has been treated with diuretic therapy along with addition of carvedilol for his cardiomyopathy. He was then started on Eliquis 10 mg twice daily and will continue this for a total of 10 days. He will be followed up by Dr. Ziegler next week. The plan is to decrease his Eliquis to 5 mg twice daily after 7 days. He will go home on carvedilol 3.125 mg twice daily. No FLORIN was started due to his hypotensive response to Coreg. This will be considered as an outpatient. He will continue on fluid restriction to 1800 cc of fluid daily. Additionally, he will continue the Demadex and Aldactone. He is on atorvastatin for lipid management. It was noted that at night his oxygen saturations were dropping down. He had an overnight oximetry study showing that his oxygen saturations were less than 85% for 58 minutes through the night. Home oxygen has been arranged for nighttime oxygen use. He has been up in the room with no lightheadedness or dizziness. Groin site is intact with no bleeding, induration , or pain. At this time, it currently is felt is he is ready for discharge with close outpatient followup. ALLERGIES: He has no known allergies. DISCHARGE MEDICATIONS: He will go home on magnesium citrate 100 mg daily; vitamin D 1000 units daily; atorvastatin 20 mg daily; trazodone 25 mg at bedtime ; Tylenol 325-650 mg every 6 hours as needed for pain, not to exceed 3000 mg daily; Eliquis 10 mg twice daily; carvedilol 3.125 mg twice daily; Aldactone 25 mg daily; Demadex 40 mg twice daily. Of note, his potassium will be stopped due to placement on Aldactone. PHYSICAL EXAMINATION: VITAL SIGNS: On day of discharge, blood pressure 97/62. After medication, it dropped to 87/56 and asymptomatic. Heart rate 68. Oxygen saturation on room air 98%. HEART: Monitor shows regular sinus rhythm with PVCs. Heart rate regular with occasional ectopy. No murmurs, rubs, or gallops. Lungs sounds are diminished with no wheezing, rales, or rhonchi. ABDOMEN: Soft and nontender. EXTREMITIES: No lower extremity edema. Pulses 2 + bilaterally. PLAN: 1. Critical aortic stenosis. Status post balloon aortic valvuloplasty. Post valvuloplasty echocardiogram on February 15 showed improvement of ejection fraction from 10% to 20% to 25%, mild to moderate AI with a peak gradient of 38 and mean gradient of 77. He was evaluated by Dr. Garcia, and he does not feel that he is a candidate for a TAVR at this time. He does have a follow-up appointment with Dr. Patel on February 28, 2017, for close followup. 2. PE with possible thrombus in RA to be managed on Eliquis 10 mg twice daily for 7 days and then decrease dose to 5 mg twice daily. 3. Aortic systolic heart failure. He will go home on Demadex 40 mg twice daily and continue on low-dose carvedilol 3.125 mg twice daily. He does not tolerate a higher dose of carvedilol at this time as he is hypotensive with systolic blood pressures in the 90s and at times dipping into the 80s. He was not started on an FLORIN or an ARB due to his hypotensive response. 4. Pleural effusion post right-sided thoracentesis on February 13 with 1200 mL out. Cytology was negative. A repeat chest x-ray did show potential recurrence, and this was reviewed with Pulmonology who felt there was no need for repeat thoracentesis at this time. He will continue on diuretic therapy. 5. Shock liver, probably related to recent reduction of cardiac output and systolic heart failure. His condition does continue to improve. 6. Hyponatremia. This has been improved. We will continue with fluid restriction of 1800 cc daily, diuresis, and continue on Aldactone. 7. Hyperlipidemia. He will continue on atorvastatin. 8. Nocturnal hypoxia. He does use home oxygen; however, he had no formal study done. Therefore, he is paying for it out of pocket. We did an overnight oxygen study, and he does drop down to below 85% for approximately 58 minutes throughout the night. Home oxygen order has been given, and Respiratory Therapy will get this set up through [facility] in [place]. 9. DVT prophylaxis. He will continue on Eliquis. 10. Order for Home Care placed for RN to help monitor BP, weight, observe for edema, or other potential problems. PT to assist with home safety, muscle strengthening, and activity progression to point he can participate in Cardiac Rehab.. FOLLOWUP APPOINTMENTS: Have been made with both Dr. Patel and Dr. Ziegler. He will see Dr. Ziegler on February 23, 2017, and Dr. Patel on February 28. At this time, he currently is stable for discharge. /[id number]/MODL MTDD
[2017-02-18 13:44] VITALS: BP 101/70; PULSE 77; RESP 16; TEMP 97.3; O2SAT 96
--- NOTE | 2017-02-18 14:25 | PDIAF ---
- Diagnosis Diagnosis: Systolic CHF Code Status: Full Code - Medication Management Discharge Medications: Medications to Continue on Transfer Atorvastatin Calcium [Lipitor 20 mg (*)] 20 mg PO DAILY 02/10/17 [Last Taken Unknown] Cholecalciferol Vit D3 [Vitamin D3 (*)] 1,000 units PO DAILY 02/10/17 [Last Taken Unknown] Magnesium Citrate 100 mg PO DAILY 02/10/17 [Last Taken Unknown] traZODone [traZODONE 50MG (*)] 25 mg PO HS 02/10/17 [Last Taken Unknown] Acetaminophen [Tylenol 325mg (*)] 650 mg PO Q6H PRN tab 02/18/17 [Last Taken Unknown] Apixaban [Eliquis] 10 mg PO BID #60 tab 02/18/17 [Last Taken Unknown] Carvedilol [Coreg (*)] 3.125 mg PO BIDMEAL #60 tab 02/18/17 [Last Taken Unknown] Spironolactone [Aldactone 25 MG (*)] 25 mg PO DAILY #30 tab 02/18/17 [Last Taken Unknown] Torsemide [Demadex] 40 mg PO BIDDIUR #120 tab 02/18/17 [Last Taken Unknown] traZODone [traZODONE 50MG (*)] 50 mg PO HS tab 02/18/17 [Last Taken Unknown] Discharge Medications: Refer to the Discharge Home Medication list for PRN reason. - Orders Services needed: Home Care, Registered Nurse, Physical Therapy Home Care Face to Face: I certify that this patient was under my care and that I had the required [id number] encounter meeting the encounter requirements on the discharge day. My findings support the fact that the patient is homebound as defined in Home Care Face to Face Continued: CMS Chapter 7 Medicare Benefits Manual 30.1.1 , The condition of the patient is such that there exists a normal inability to leave home and consequently, leaving home would require a considerable and taxing effort. Diet Recommendation: sodium restricted, cardiac -low fat low salt, fluid restriction (use comment for amount) (1800 cc/day) Diet Texture: Regular Texture Diet Weigh Patient: daily Wound Care Instructions: groin site precautions. No heavy lifting, pushing, pulling greater than 10 pounds for 3 days. OK to shower. Clean with soap and water. No ointment or dressing. 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
--- NOTE | 2017-02-18 14:25 | PDIAF ---
- Diagnosis Diagnosis: Systolic CHF Code Status: Full Code - Medication Management Discharge Medications: Medications to Continue on Transfer Atorvastatin Calcium [Lipitor 20 mg (*)] 20 mg PO DAILY 02/10/17 [Last Taken Unknown] Cholecalciferol Vit D3 [Vitamin D3 (*)] 1,000 units PO DAILY 02/10/17 [Last Taken Unknown] Magnesium Citrate 100 mg PO DAILY 02/10/17 [Last Taken Unknown] traZODone [traZODONE 50MG (*)] 25 mg PO HS 02/10/17 [Last Taken Unknown] Acetaminophen [Tylenol 325mg (*)] 650 mg PO Q6H PRN tab 02/18/17 [Last Taken Unknown] Apixaban [Eliquis] 10 mg PO BID #60 tab 02/18/17 [Last Taken Unknown] Carvedilol [Coreg (*)] 3.125 mg PO BIDMEAL #60 tab 02/18/17 [Last Taken Unknown] Spironolactone [Aldactone 25 MG (*)] 25 mg PO DAILY #30 tab 02/18/17 [Last Taken Unknown] Torsemide [Demadex] 40 mg PO BIDDIUR #120 tab 02/18/17 [Last Taken Unknown] traZODone [traZODONE 50MG (*)] 50 mg PO HS tab 02/18/17 [Last Taken Unknown] Discharge Medications: Refer to the Discharge Home Medication list for PRN reason. - Orders Services needed: Home Care, Registered Nurse, Physical Therapy Home Care Face to Face: I certify that this patient was under my care and that I had the required [id number] encounter meeting the encounter requirements on the discharge day. My findings support the fact that the patient is homebound as defined in Home Care Face to Face Continued: CMS Chapter 7 Medicare Benefits Manual 30.1.1 , The condition of the patient is such that there exists a normal inability to leave home and consequently, leaving home would require a considerable and taxing effort. Diet Recommendation: sodium restricted, cardiac -low fat low salt, fluid restriction (use comment for amount) (1800 cc/day) Diet Texture: Regular Texture Diet Weigh Patient: daily Wound Care Instructions: groin site precautions. No heavy lifting, pushing, pulling greater than 10 pounds for 3 days. OK to shower. Clean with soap and water. No ointment or dressing. 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
--- NOTE | 2017-02-18 14:27 | ASMTCMCOM ---
CM Note CM Note Notes: Patient requested to speak with C/M regarding discharge with home care. Previous report was that patient would have home care but then it was not ordered this morning so plan appeared that no home care was needed. However, patient said he feels he needs home care and would be more comfortable if he knew someone was coming in to see him. I told him that would not be a problem and that I would contact [facility] home care. C/M spoke with Nazia who said they could do start of care on Monday and would call him tonight once he gets home. Patient in agreement. Date Signed: 02/18/2017 02:27 PM Electronically Signed By:BRANDON Mckeon
--- NOTE | 2017-02-18 14:27 | ASMTCMCOM ---
CM Note CM Note Notes: Patient requested to speak with C/M regarding discharge with home care. Previous report was that patient would have home care but then it was not ordered this morning so plan appeared that no home care was needed. However, patient said he feels he needs home care and would be more comfortable if he knew someone was coming in to see him. I told him that would not be a problem and that I would contact [facility] home care. C/M spoke with Nazia who said they could do start of care on Monday and would call him tonight once he gets home. Patient in agreement. Date Signed: 02/18/2017 02:27 PM Electronically Signed By:BRANDON Mckeon
--- NOTE | 2017-02-18 14:27 | ASMTCMCOM ---
CM Note CM Note Notes: Patient requested to speak with C/M regarding discharge with home care. Previous report was that patient would have home care but then it was not ordered this morning so plan appeared that no home care was needed. However, patient said he feels he needs home care and would be more comfortable if he knew someone was coming in to see him. I told him that would not be a problem and that I would contact [facility] home care. C/M spoke with Nazia who said they could do start of care on Monday and would call him tonight once he gets home. Patient in agreement. Date Signed: 02/18/2017 02:27 PM Electronically Signed By:BRANDON Mckeon
--- NOTE | 2017-02-19 16:43 | ASDISCHSUM ---
Discharge Information Plan Status:Home with Home Health Medically Cleared to Leave:02/18/2017 Discharge Date:02/18/2017 03:05 PM D/C Disposition:Home Health Service ADT D/C Disposition:Home Health Service Projected Discharge Date:02/18/2017 12:00 AM Transportation at D/C:Family Discharge Delay Reason: Follow-Up Date:02/18/2017 12:00 AM Discharge Slot: Final Diagnosis:Aortic stenosis, Systolic heart failure Placement Information Referral Type:*Home Health Care Services Referral ID:[id number] Provider Name:[facility] Care Address 1[address] Address 2: City:[place] Selection Factors: State:[place] Patient Contact Information Contact Name:ANGELI Relationship: Address:[facility] [facility] City:[place] Phone: State/Zip Code:[place] [address] Email: Financial Information Financial Class: Primary Plan Desc:MEDICARE INPATIENT Primary Plan Number:[id number] Secondary Plan Desc:AARP/MDR SUPPLEMENT Secondary Plan Number:[id number] Assessment Information [facility] CM Progress Note CM Note CM Note Notes: Pt admitted with heart failuer. His DC needs are TBD. Plan is for a balloon valvuloplasty in 3-4 days. C/M will continue to follow. Date Signed: 02/11/2017 02:41 PM Electronically Signed By:Latisha James LCSW [facility] CM Progress Note CM Note CM Note Notes: Spoke to patient and his son, Torin. Patient reports having a HC RN before his hospitalization. He can't remember what agency she works for, but son will check and get back to . Patient may need PT/OT as well? and may need home O2. Torin is from [place] and doesn't know how long he will be able to stay. CM to follow. Date Signed: 02/14/2017 02:33 PM Electronically Signed By:Bita Willard LCSW [facility] CM Progress Note CM Note CM Note Notes: 02/16/2017 Case Management Note Reviewed chart, spoke w/PT. PT recommending outpatient cardiac rehab. Case Management d/c poc: Home with family support when medically stable with follow up as directed. Case Management available should needs change. Date Signed: 02/16/2017 02:54 PM Electronically Signed By:Brenda Cole RN [facility] CM Progress Note CM Note CM Note Notes: 02/16/2017 Case Management Note At request of Juan R Adams met w/pt to arrange home health services. Pt unhappy with current services provided by At [facility] [phone]. Discussed multiple different agencies, pt chose [facility]. Notified At [facility] of discontinuation of services as well as notified [facility] of referral. [facility] accepted pt. Case management d/c poc: Home with Home health RN PT [employer] when medically stable. Case management to follow. Date Signed: 02/16/2017 04:33 PM Electronically Signed By:Brenda Cole RN [facility] CM Progress Note CM Note CM Note Notes: Chart reviewed. Met with patient to discuss and verify home address and phone number. He is to go home with [facility] via [facility]. Spoke with Juan R Adams and pt is likely to dc this pm. Home health care aware. CM to follow, Date Signed: 02/17/2017 12:26 PM Electronically Signed By:Jillian Lundberg RN [facility] CM Progress Note CM Note CM Note Notes: Patient discharging home with plans for outpatient cardiac rehab. No additional case management discharge needs apparent at this time. Date Signed: 02/18/2017 12:02 PM Electronically Signed By:BRANDON Mckeon [facility] CM Progress Note CM Note CM Note Notes: Patient requested to speak with C/M regarding discharge with home care. Previous report was that patient would have home care but then it was not ordered this morning so plan appeared that no home care was needed. However, patient said he feels he needs home care and would be more comfortable if he knew someone was coming in to see him. I told him that would not be a problem and that I would contact [facility] home care. C/M spoke with Mannyglenn who said they could do start of care on Monday and would call him tonight once he gets home. Patient in agreement. Date Signed: 02/18/2017 02:27 PM Electronically Signed By:BRANDON Mckeon Intervention Information
--- NOTE | 2017-02-19 16:43 | ASDISCHSUM ---
Discharge Information Plan Status:Home with Home Health Medically Cleared to Leave:02/18/2017 Discharge Date:02/18/2017 03:05 PM D/C Disposition:Home Health Service ADT D/C Disposition:Home Health Service Projected Discharge Date:02/18/2017 12:00 AM Transportation at D/C:Family Discharge Delay Reason: Follow-Up Date:02/18/2017 12:00 AM Discharge Slot: Final Diagnosis:Aortic stenosis, Systolic heart failure Placement Information Referral Type:*Home Health Care Services Referral ID:[id number] Provider Name:[facility] Care Address 1[address] Address 2: City:[place] Selection Factors: State:[place] Patient Contact Information Contact Name:ANGELI Relationship: Address:[facility] [facility] City:[place] Phone: State/Zip Code:[place] [address] Email: Financial Information Financial Class: Primary Plan Desc:MEDICARE INPATIENT Primary Plan Number:[id number] Secondary Plan Desc:AARP/MDR SUPPLEMENT Secondary Plan Number:[id number] Assessment Information [facility] CM Progress Note CM Note CM Note Notes: Pt admitted with heart failuer. His DC needs are TBD. Plan is for a balloon valvuloplasty in 3-4 days. C/M will continue to follow. Date Signed: 02/11/2017 02:41 PM Electronically Signed By:Latisha James LCSW [facility] CM Progress Note CM Note CM Note Notes: Spoke to patient and his son, Torin. Patient reports having a HC RN before his hospitalization. He can't remember what agency she works for, but son will check and get back to . Patient may need PT/OT as well? and may need home O2. Torin is from [place] and doesn't know how long he will be able to stay. CM to follow. Date Signed: 02/14/2017 02:33 PM Electronically Signed By:Bita Willard LCSW [facility] CM Progress Note CM Note CM Note Notes: 02/16/2017 Case Management Note Reviewed chart, spoke w/PT. PT recommending outpatient cardiac rehab. Case Management d/c poc: Home with family support when medically stable with follow up as directed. Case Management available should needs change. Date Signed: 02/16/2017 02:54 PM Electronically Signed By:Brenda Cole RN [facility] CM Progress Note CM Note CM Note Notes: 02/16/2017 Case Management Note At request of Juan R Adams met w/pt to arrange home health services. Pt unhappy with current services provided by At [facility] [phone]. Discussed multiple different agencies, pt chose [facility]. Notified At [facility] of discontinuation of services as well as notified [facility] of referral. [facility] accepted pt. Case management d/c poc: Home with Home health RN PT [employer] when medically stable. Case management to follow. Date Signed: 02/16/2017 04:33 PM Electronically Signed By:Brenda Cole RN [facility] CM Progress Note CM Note CM Note Notes: Chart reviewed. Met with patient to discuss and verify home address and phone number. He is to go home with [facility] via [facility]. Spoke with Juan R Adams and pt is likely to dc this pm. Home health care aware. CM to follow, Date Signed: 02/17/2017 12:26 PM Electronically Signed By:Jillian Lundberg RN [facility] CM Progress Note CM Note CM Note Notes: Patient discharging home with plans for outpatient cardiac rehab. No additional case management discharge needs apparent at this time. Date Signed: 02/18/2017 12:02 PM Electronically Signed By:BRANDON Mckeon [facility] CM Progress Note CM Note CM Note Notes: Patient requested to speak with C/M regarding discharge with home care. Previous report was that patient would have home care but then it was not ordered this morning so plan appeared that no home care was needed. However, patient said he feels he needs home care and would be more comfortable if he knew someone was coming in to see him. I told him that would not be a problem and that I would contact [facility] home care. C/M spoke with Mannyglenn who said they could do start of care on Monday and would call him tonight once he gets home. Patient in agreement. Date Signed: 02/18/2017 02:27 PM Electronically Signed By:BRANDON Mckeon Intervention Information
--- NOTE | 2017-02-19 16:43 | ASDISCHSUM ---
Discharge Information Plan Status:Home with Home Health Medically Cleared to Leave:02/18/2017 Discharge Date:02/18/2017 03:05 PM D/C Disposition:Home Health Service ADT D/C Disposition:Home Health Service Projected Discharge Date:02/18/2017 12:00 AM Transportation at D/C:Family Discharge Delay Reason: Follow-Up Date:02/18/2017 12:00 AM Discharge Slot: Final Diagnosis:Aortic stenosis, Systolic heart failure Placement Information Referral Type:*Home Health Care Services Referral ID:[id number] Provider Name:[facility] Care Address 1[address] Address 2: City:[place] Selection Factors: State:[place] Patient Contact Information Contact Name:ANGELI Relationship: Address:[facility] [facility] City:[place] Phone: State/Zip Code:[place] [address] Email: Financial Information Financial Class: Primary Plan Desc:MEDICARE INPATIENT Primary Plan Number:[id number] Secondary Plan Desc:AARP/MDR SUPPLEMENT Secondary Plan Number:[id number] Assessment Information [facility] CM Progress Note CM Note CM Note Notes: Pt admitted with heart failuer. His DC needs are TBD. Plan is for a balloon valvuloplasty in 3-4 days. C/M will continue to follow. Date Signed: 02/11/2017 02:41 PM Electronically Signed By:Latisha James LCSW [facility] CM Progress Note CM Note CM Note Notes: Spoke to patient and his son, Torin. Patient reports having a HC RN before his hospitalization. He can't remember what agency she works for, but son will check and get back to . Patient may need PT/OT as well? and may need home O2. Torin is from [place] and doesn't know how long he will be able to stay. CM to follow. Date Signed: 02/14/2017 02:33 PM Electronically Signed By:Bita Willard LCSW [facility] CM Progress Note CM Note CM Note Notes: 02/16/2017 Case Management Note Reviewed chart, spoke w/PT. PT recommending outpatient cardiac rehab. Case Management d/c poc: Home with family support when medically stable with follow up as directed. Case Management available should needs change. Date Signed: 02/16/2017 02:54 PM Electronically Signed By:Brenda Cole RN [facility] CM Progress Note CM Note CM Note Notes: 02/16/2017 Case Management Note At request of Juan R Adams met w/pt to arrange home health services. Pt unhappy with current services provided by At [facility] [phone]. Discussed multiple different agencies, pt chose [facility]. Notified At [facility] of discontinuation of services as well as notified [facility] of referral. [facility] accepted pt. Case management d/c poc: Home with Home health RN PT [employer] when medically stable. Case management to follow. Date Signed: 02/16/2017 04:33 PM Electronically Signed By:Brenda Cole RN [facility] CM Progress Note CM Note CM Note Notes: Chart reviewed. Met with patient to discuss and verify home address and phone number. He is to go home with [facility] via [facility]. Spoke with Juan R Adams and pt is likely to dc this pm. Home health care aware. CM to follow, Date Signed: 02/17/2017 12:26 PM Electronically Signed By:Jillian Lundberg RN [facility] CM Progress Note CM Note CM Note Notes: Patient discharging home with plans for outpatient cardiac rehab. No additional case management discharge needs apparent at this time. Date Signed: 02/18/2017 12:02 PM Electronically Signed By:BRANDON Mckeon [facility] CM Progress Note CM Note CM Note Notes: Patient requested to speak with C/M regarding discharge with home care. Previous report was that patient would have home care but then it was not ordered this morning so plan appeared that no home care was needed. However, patient said he feels he needs home care and would be more comfortable if he knew someone was coming in to see him. I told him that would not be a problem and that I would contact [facility] home care. C/M spoke with Mannyglenn who said they could do start of care on Monday and would call him tonight once he gets home. Patient in agreement. Date Signed: 02/18/2017 02:27 PM Electronically Signed By:BRANDON Mckeon Intervention Information
== END 2017-02-18 15:05 | disposition home health service (06) | DRG 273 ==
LOC: F2N 15:51 → F2W 02-15 11:02
PROVIDERS: ADMIT Internal Medicine Cardiovascular Disease; ATTEND Internal Medicine Cardiovascular Disease
PROC: 02HV33Z Insertion of Infusion Device into Superior Vena Cava, Percutaneous Approach (ICD-10-PCS; 2017-02-10)
PROC: 0W993ZX Drainage of Right Pleural Cavity, Percutaneous Approach, Diagnostic (ICD-10-PCS; 2017-02-12)
PROC: 027F3ZZ Dilation of Aortic Valve, Percutaneous Approach (ICD-10-PCS; principal; 2017-02-14)
DX: I35.8 Other nonrheumatic aortic valve disorders (principal); I50.23 Acute on chronic systolic (congestive) heart failure; J96.00 Acute respiratory failure, unspecified whether with hypoxia or hypercapnia; R94.5 Abnormal results of liver function studies; J44.9 Chronic obstructive pulmonary disease, unspecified; E78.5 Hyperlipidemia, unspecified; E87.1 Hypo-osmolality and hyponatremia; Z87.891 Personal history of nicotine dependence
CPT/HCPCS: 85520-90; 97116-GP; 97161-GP; 97164-GP; 97165-GO; 97530-GO; 97530-GP; 97535-GO; C1751; C1769; G8978-GP-CI; G8979-GP-CH; G8979-GP-CI; G8980-GP-CI; G8987-GO-CI; G8988-GO-CI; G8989-GO-CI; J1250; J1644; J1650; J1940; J2250; J2370; J2997; J3010; Q9967

== ENCOUNTER → 2017-03-02 | Outpatient (CLI) | payer OTHER | LOC: BHFA 11:30 | PROVIDERS: ATTEND Internal Medicine Cardiovascular Disease | DX: I35.0 Nonrheumatic aortic (valve) stenosis (principal) ==

== ENCOUNTER → 2017-04-20 | Outpatient (CLI) | payer OTHER, MEDICARE | LOC: BHFA 10:00 | PROVIDERS: ATTEND Internal Medicine Cardiovascular Disease | DX: I50.9 Heart failure, unspecified (principal); I35.9 Nonrheumatic aortic valve disorder, unspecified ==

== ENCOUNTER 2017-05-24 05:40 | Inpatient (IN) | payer OTHER, MEDICARE ==
[2017-05-24] MEDS ORDERED: DOBUTamine/DEXTROSE 250 ML IV ONE (06:00)
[2017-05-24] MEDS ORDERED: TRANEXAMIC ACID 1,000 MG in NS (SYRINGE) 50 ML IV ONE (06:00)
[2017-05-24] MEDS ORDERED: SODIUM BICARBONATE 20 MEQ, LIDOCAINE 1% 10 ML in NORMOSOL-R 1,000 ML MISC ONE (06:00)
[2017-05-24] MEDS ORDERED: PHENYLEPHRINE HCL 50 MG in NS 250 ML IV ONE (06:00)
[2017-05-24] MEDS ORDERED: INSULIN REGULAR HUMAN 100 UNIT in NS 100 ML IV ONE (06:00)
[2017-05-24] MEDS ORDERED: NOREPINEPHRINE BITARTRATE 16 MG in NS 250 ML IV ONE (06:00)
[2017-05-24] MEDS ORDERED: MANNITOL 25% 12.5 GM/50 ML VIAL IVP ONE (06:00)
[2017-05-24] MEDS ORDERED: LIDOCAINE 1% 5 ML SDV ID PRN (06:11)
[2017-05-24] MEDS ORDERED: CITRATE DEXTROSE SOLN 500 ML BAG MISC ONE (06:11)
[2017-05-24] MEDS ORDERED: ceFAZolin 2 GM/SWFI 2 GM/20 ML SYR IVP ONE (06:11)
[2017-05-24] MEDS ORDERED: LIDOCAINE 1% 2 ML INJ ONE (06:19)
[2017-05-24] MEDS ORDERED: ALBUMIN 5% 250 ML BOTTLE IV ONE ×2 (06:31→10:49)
[2017-05-24] MEDS ORDERED: PROTAMINE SULFATE 50 MG/5 ML VIAL IVP ONE (06:31)
[2017-05-24] MEDS ORDERED: MILRINONE/DEXTROSE/100 ML BAG IV ONE (06:31)
[2017-05-24] MEDS ORDERED: CALCIUM CHLORIDE 1 GM/10 ML INJ ONE ×3 (06:31→10:22)
[2017-05-24] MEDS ORDERED: ADENOSINE 6 MG/2 ML VIAL ONE (06:32)
[2017-05-24] MEDS ORDERED: DOPamine/DEXTROSE/250 ML BAG IV ONE (06:32)
[2017-05-24] MEDS ORDERED: LIDOCAINE 2% 100 MG/5 ML SYR ONE (06:32)
[2017-05-24] MEDS ORDERED: MAGNESIUM SULFATE 1 GM/2 ML VIAL ONE (06:32)
[2017-05-24] MEDS ORDERED: niCARdipine/NACL/200 ML BAG IV ONE (06:32)
[2017-05-24] MEDS ORDERED: HEPARIN 10,000 UNIT/10 ML MDV (1,000 UNIT/ML) ONE (06:32)
[2017-05-24] MEDS ORDERED: NA BICARBONATE 50 MEQ/50 ML VIAL ONE (06:32)
[2017-05-24] MEDS ORDERED: AMIODARONE HCL 150 MG/3 ML VIAL ONE (06:32)
[2017-05-24] MEDS ORDERED: CITRATE DEXTROSE SOLN 500 ML BAG ONE (06:32)
[2017-05-24] MEDS ORDERED: methylPREDNISolone SOD SUCC 1 GM/8 ML VIAL ONE (06:33)
[2017-05-24] MEDS ORDERED: ceFAZolin 1 GM VIAL ONE (06:33)
[2017-05-24] MEDS ORDERED: LR 1,000 ML IV ONE (06:40)
--- NOTE | 2017-05-24 06:43 | PDGENHP ---
History and Physical - Chief Complaint severe , mild-mod AI/MR/TR, dilated asc ao - History of Present Illness 77M with h/o critical , systolic dysfunction (LVEF 15%), mild-moderate MR, CHF , and dilated asc ao. 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 His CHF has been managed by Dr. Ziegler and there has been an improvement in his LVEF to approximately 45%. He is here today for elective AVR, MV repair, and possible asc ao repair. Pt reports feeling well. He states he walk at least a mile each day. He denies fatigue, weakness, pre-syncope, syncope, CP, SOB, abd pain, or LE edema. History Information - Allergies/Home Medication List Allergies/Adverse Reactions: No Known Allergies Allergy (Verified 05/12/17 10:50) Home Medications: Atorvastatin Calcium [Lipitor 20 mg (*)] 02/10/17 [Last Taken 05/23/17] Cholecalciferol Vit D3 [Vitamin D3 (*)] 02/10/17 [Last Taken 05/23/17] Magnesium Citrate 02/10/17 [Last Taken 05/23/17] traZODone [traZODONE 50MG (*)] 02/10/17 [Last Taken 05/22/17] Acetaminophen [Tylenol 325mg (*)] 05/12/17 [Last Taken Unknown] Apixaban [Eliquis] 05/12/17 [Last Taken 05/17/17] Carvedilol [Coreg (*)] 05/12/17 [Last Taken 05/23/17] Spironolactone [Aldactone 25 MG (*)] 05/12/17 [Last Taken 05/23/17] Torsemide [Demadex] 05/12/17 [Last Taken 05/23/17] I have personally reviewed and updated: medical history, social history, surgical history - Past Medical History CHF, hypertension, hyperlipidemia Additional medical history: as per HPI - Surgical History Additional surgical history: as per HPI - Social History Smoking Status: Former smoker Alcohol Use: Sober Review of Systems Review of Systems: ROS: 2-9 pt reviewed & negative except for what was stated in HPI & below Physical Exam Physical Exam: Temp Pulse Resp BP Pulse Ox 36.5 C 56 L 18 103/49 L 98 05/12/17 09:52 05/12/17 09:52 05/12/17 09:52 05/12/17 09:52 05/12/17 09:52 Constitutional: no apparent distress, appears nourished, not in pain Eyes: anicteric sclera Ears, Nose, Mouth, Throat: moist mucous membranes, ears appear normal Cardiovascular: regular rate and rhythym Respiratory: no respiratory distress, clear to auscultation Gastrointestinal: soft, non-tender abdomen Genitourinary: no bladder fullness Skin: warm, normal color, mottled Musculoskeletal: full muscle strength Neurologic: AAOx3 Psychiatric: interacting appropriately, not anxious, not encephalopathic, thought process linear Lab Data & Imaging Review Patient ABO/Rh B NEGATIVE 05/21/17 11:55 Antibody Screen NEGATIVE 05/21/17 11:55 Crossmatch IS Only See Detail 05/21/17 11:55 All labs reviewed in [facility]. Imaging Review: All pertinent imaging reviewed. Assessment & Plan Assessment: 77 M with /AI, MR, asc ao dilation Plan: AVR, MV repair/replace, possible asc ao aneurysm repair
[2017-05-24 07:01] LABS: INR 1.06 (0.83-1.16)
[2017-05-24] MEDS ORDERED: MIDAZOLAM 2 MG/2 ML VIAL ONE (07:01)
[2017-05-24] MEDS ORDERED: MIDAZOLAM 2 MG/2 ML VIAL IVP ONE (07:01)
--- NOTE | 2017-05-24 07:01 | PDANEPAE ---
ANE History of Present Illness here for avr ANE Past Medical History - Cardiovascular History Hx Hypertension: Yes Hx Arrhythmias: No Hx Chest Pain: No Hx Coronary Artery / Peripheral Vascular Disease: No Hx CHF / Valvular Disease: Yes Hx Palpitations: No Cardiovascular History Comment: AVR, MVR, AORTIC ANEURYSM - Pulmonary History Hx COPD: No Hx Asthma/Reactive Airway Disease: No Hx Recent Upper Respiratory Infection: No Hx Oxygen in Use at Home: No Hx Sleep Apnea: No Sleep Apnea Screening Result - Last Documented: Positive - Neurologic History Hx Cerebrovascular Accident: No Hx Seizures: No Hx Dementia: No - Endocrine History Hx Diabetes: No - Renal History Hx Renal Disorders: No - Liver History Hx Hepatic Disorders: No - Neurological & Psychiatric Hx Hx Neurological and Psychiatric Disorders: No - Cancer History Hx Cancer: No - Congenital Disorder History Hx Congenital Disorders: No - GI History Hx Gastrointestinal Disorders: No - Other Health History Other Health History: BRUISIES EASILY - Chronic Pain History Chronic Pain: No - Surgical History Prior Surgeries: cardiac cath, trigger finger release x 2 ANE Review of Systems Review of systems is: negative Review of Systems: - Exercise capacity Exercise capacity: <4 METS METS (RN): 4 METS ANE Patient History - Allergies Allergies/Adverse Reactions: No Known Allergies Allergy (Verified 05/12/17 10:50) - Home Medications Home medications: home medication list seen and reviewed Home Medications: Atorvastatin Calcium [Lipitor 20 mg (*)] 02/10/17 [Last Taken 05/23/17] Cholecalciferol Vit D3 [Vitamin D3 (*)] 02/10/17 [Last Taken 05/23/17] Magnesium Citrate 02/10/17 [Last Taken 05/23/17] traZODone [traZODONE 50MG (*)] 02/10/17 [Last Taken 05/22/17] Acetaminophen [Tylenol 325mg (*)] 05/12/17 [Last Taken Unknown] Apixaban [Eliquis] 05/12/17 [Last Taken 05/17/17] Carvedilol [Coreg (*)] 05/12/17 [Last Taken 05/23/17] Spironolactone [Aldactone 25 MG (*)] 05/12/17 [Last Taken 05/23/17] Torsemide [Demadex] 05/12/17 [Last Taken 05/23/17] - NPO status NPO Status: no food or drink >8 hours NPO Since - Liquids (Date): 05/23/17 NPO Since - Liquids (Time): 00:00 NPO Since - Solids (Date): 05/23/17 NPO Since - Solids (Time): 20:00 - Anes Hx Anes Hx: no prior problems - Smoking Hx Smoking Status: Never smoked - Family Anes Hx Family Hx Anesthesia Complications: none ANE Labs/Vital Signs - Vital Signs Vital Signs: reviewed preoperatively; see RN documention for details Blood Pressure: 103/49 Heart Rate: 56 Respiratory Rate: 18 O2 Sat (%): 98 Height: 175.26 cm Weight: 67.585 kg ANE Physical Exam - Airway Neck exam: FROM Mallampati Score: Class 1 Mouth exam: normal dental/mouth exam - Pulmonary Pulmonary: no respiratory distress, clear to auscultation - Cardiovascular Cardiovascular: regular rate and rhythym - ASA Status ASA Status: IV ANE Anesthesia Plan Anesthesia Plan: general endotracheal anesthesia Lines/Monitors: arterial line, central line, DIALLO
[2017-05-24] MEDS ORDERED: fentaNYL 250 MCG/5 ML INJ ONE ×2 (07:03)
[2017-05-24] MEDS ORDERED: PROPOFOL/EMULSION 500 MG/50 ML BOTTLE IV ONE (07:04)
[2017-05-24] MEDS ORDERED: KETAMINE 200 MG/20 ML VIAL ONE (07:05)
[2017-05-24] MEDS: MUPIROCIN 2% 22 GM OINT NS SCH ×3 (07:13→21:02)
[2017-05-24] MEDS ORDERED: SUGAMMADEX SODIUM 200 MG/2 ML VIAL IVP ONE (10:37)
[2017-05-24] MEDS ORDERED: HYDROmorphONE/DILAUDID 2 MG/ML INJ ONE (10:42)
[2017-05-24] MEDS ORDERED: MAGNESIUM SULF 2 GM/WATER 50 ML BAG IV ONE (10:49)
[2017-05-24] MEDS ORDERED: PANTOPRAZOLE SODIUM 40 MG VIAL IVP ONE (11:04)
[2017-05-24] MEDS ORDERED: MAGNESIUM SULF 2 GM/WATER 50 ML IV ONE (11:04)
[2017-05-24] MEDS ORDERED: POLYETHYLENE GLYCOL 3350 17 GM PKT PO PRN (11:04)
[2017-05-24] MEDS ORDERED: MAGNESIUM HYDROXIDE 30 ML UDCUP PO PRN (11:04)
[2017-05-24] MEDS ORDERED: ACETAMINOPHEN 650 MG SUPP PR PRN (11:04)
[2017-05-24] MEDS ORDERED: LACTULOSE 20 GM/30 ML UDCUP PO PRN (11:04)
[2017-05-24] MEDS ORDERED: MEPERIDINE 25 MG/ML SYR IVP PRN (11:04)
[2017-05-24] MEDS ORDERED: BISACODYL 10 MG SUPP PR PRN (11:04)
[2017-05-24] MEDS ORDERED: D50W 25 GM/50 ML SYR IVP PRN (11:04)
[2017-05-24] MEDS ORDERED: ONDANSETRON 4 MG/2 ML VIAL IVP PRN (11:04)
[2017-05-24] MEDS ORDERED: ONDANSETRON DISINTEGRATING 4 MG TAB PO PRN (11:04)
[2017-05-24] MEDS ORDERED: CEPACOL LOZENGE PO PRN (11:04)
[2017-05-24] MEDS ORDERED: SODIUM CL NASAL 45 ML BTL EACHNARE PRN (11:04)
[2017-05-24] MEDS ORDERED: ACETAMINOPHEN 325 MG TAB PO PRN (11:04)
[2017-05-24] MEDS ORDERED: METOCLOPRAMIDE 10 MG/2 ML VIAL IVP PRN (11:04)
[2017-05-24] MEDS ORDERED: NS 1,000 ML IV SCH ×2 (11:15→13:00)
[2017-05-24] MEDS ORDERED: INSULIN REGULAR HUMAN 100 UNIT in NS 100 ML IV SCH (11:30)
--- NOTE | 2017-05-24 11:31 | GOP ---
[f rep st] OPERATIVE REPORT DATE OF OPERATION: 05/24/2017 SURGEON: Jaden Patel DO SOFTWARE ADMINISTRATOR: Sandeep Pruitt PA-C ANESTHESIA: Praveen Arellano MD PREOPERATIVE DIAGNOSIS: 1. Aortic stenosis, aortic insufficiency. 2. Valvular cardiomyopathy. 3. Mitral regurgitation. 4. Enlarged ascending aorta. POSTOPERATIVE DIAGNOSIS: 1. Aortic stenosis, aortic insufficiency. 2. Valvular cardiomyopathy. 3. Mitral regurgitation. 4. Enlarged ascending aorta. PROCEDURE PERFORMED: 1. Aortic valve replacement with a #25 Magna bioprosthesis. 2. Mitral valve ring with a #32 Physio annuloplasty ring. 3. Atrial clip the left atrial appendage. FINDINGS: Patient presented with class 4 congestive heart failure, underwent medical stabilization a nd balloon valvuloplasty, and was brought back for surgical intervention. Cath revealed no significa nt obstructive disease. He is noted to have moderate mitral insufficiency, severe aortic insufficien cy, and severe aortic stenosis. Ejection fraction was 35% to 40% preop confirmed with intraoperative echo. DESCRIPTION OF PROCEDURE: He was consented for surgery brought to the operating room, intubated. Mo nitoring lines were placed. He was prepped and draped in sterile classical manner. Sternotomy was performed. He was heparinized, cannulated in the ascending aorta and bicaval cannulas . Aorta appeared to be mildly enlarged, measuring 4 cm externally. For that reason, we elected not to do an aorta replacement and just replaced this valve and repair his mitral. Cardiopulmonary bypass was begun. The left atrial appendage was occluded with a 35 mm atrial clip. We then arrested the heart with retrograde cardioplegia, opened the aorta, and administered direct co ronary ostial cardioplegia for cardiac arrest, as well as topical hypothermia and systemic cooling. We then excised the heavily calcified bicuspid aortic valve. Anulus was debrided. LV chambers irrig ated. CO2 was infused. We then exposed the mitral valve through the right superior pulmonary vein. It appeared to be thickened and somewhat dilated, but with no obvious ruptured chordae or prolapse. Circumferential sutures were placed in the anulus. He was sized for a 32 ring, which was secured in place with Cor-Knots. Distention of the ventricle revealed no regurgitation. Left atrium was closed in standard fashion. Rewarming was begun while a 25 mm Magna valve was suture d in the supra-annular position with interrupted 2-0 Tycron pledgeted mattress sutures. Aortotomy wa s closed in a 2-layer fashion. The patient was placed in Trendelenburg, de-aired through the apex, a nd then subsequently through the LV sump in the ascending aortic vent. The cross-clamp was then michi sonja in Trendelenburg. Further de-airing was performed in Trendelenburg until no further air was iden tified. He was then easily weaned from bypass. Echo revealed no regurgitation of either the aortic or mitral valves with persistent cardiomyopathy. He remained hemodynamically stable. The heparin was reversed with protamine. 4 pacing wires, 2 med iastinal drains were placed. Thymic fat and pericardium were closed. Chest was closed in standard f ashion. The patient was extubated in the OR and returned to ICU in stable condition. /[id number]/MODL
[2017-05-24] MEDS: ALBUMIN 5% 250 ML IV PRN ×2 (12:00→14:27)
[2017-05-24] MEDS: POTASSIUM Cl (KCl) 50 ML IV PRN ×2 (12:52→14:28)
--- NOTE | 2017-05-24 13:27 | CPEKG ---
Heart Rate: 85 RR Interval: 706 P-R Interval: 204 QRSD Interval: 116 QT Interval: 440 QTC Interval: 524 P [place]: 17 QRS [place]: -54 T Wave [place]: 111 EKG Severity - ABNORMAL ECG - EKG Impression: SINUS RHYTHM EKG Impression: LVH WITH IVCD, LAD AND SECONDARY REPOL ABNRM Electronically Signed By: Radu Hammond 26-May-2017 12:24:27
[2017-05-24] MEDS ORDERED: ceFAZolin 2 GM/DEXTROSE 100 ML IV SCH (14:00)
[2017-05-24] MEDS: ceFAZolin 2 GM/DEXTROSE 100 ML IV SCH ×2 (14:27→22:10)
--- NOTE | 2017-05-24 17:12 | POSTANESTH ---
Post Anesthetic Evaluation Cardiovascular Status: Normal, Stable Respiratory Status: Normal, Stable Level of Consciousness/Mental Status: Mildly Sleepy, Arousable Pain Control: Adequate, Prn Tx Ordered Nausea/Vomiting Control: Adequate, Prn Tx Ordered Complications Possibly Related to Anesthesia: None Noted
[2017-05-24] MEDS: HYDROCODONE/APAP 5/325 TAB PO PRN (19:07)
[2017-05-24] MEDS: SENNOSIDES/DOCUSATE SODIUM TAB PO SCH (21:03)
[2017-05-24] MEDS: fentaNYL 100 MCG/2 ML INJ IVP PRN ×2 (21:28→22:19)
[2017-05-25] MEDS: fentaNYL 100 MCG/2 ML INJ IVP PRN ×3 (00:20→03:02)
[2017-05-25] MEDS: HYDROCODONE/APAP 5/325 TAB PO PRN ×4 (01:03→20:35)
[2017-05-25] MEDS: ceFAZolin 2 GM/DEXTROSE 100 ML IV SCH ×3 (05:43→20:34)
[2017-05-25 05:59] LABS: PLATELET COUNT 116 10^3/uL (150-400)
[2017-05-25 06:08] LABS: INR 1.14 (0.83-1.16); PROTIME(PATIENT) 14.8 SEC (12.0-15.0)
--- NOTE | 2017-05-25 06:41 | SOAPPROG ---
SOAP Progress Note Assessment/Plan: Assessment: POD#1 AVR #23 Magna bioprosthesis, MVA #32 Physio ring, prophylactic AtriClip ligation MALLORY BAV w severe /mod AI and mildly dilated aorta - s/p tissue AVR. Preferred antithrombotic prophylaxis with coumadin, duration 3 mo, target INR 2-3. Surveillance aorta per cards. Functional MR - Amenable to ring annuloplasty. Antithrombotic prophylaxis as per AVR. Valvular cardiomyopathy with chronic sCHF - Historical improvement of LVEF from 15% to 45% with balloon valvotomy and optimized medical therapy. Extubated in the OR. Hemodynamically stable early postop Apaced and on low dose dopa. No tachyarrhythmias or sig volume overload. Staggered reintro of HF regimen when appropriate. Acute expected blood loss anemia - Stable. No transfusions required. VTE prophylaxis with SQ hep. 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 Switch to coumadin for valvular prophylaxis. Plan: Routine POD#1 orders re TCPWs, drains, orals and mobility. Stop dopamine. Lasix 10 mg IV x 1. Tx to PCU later today. 05/25/17 06:33 Subjective: Feels better than expected. Pain controlled. Thirsty. No nausea or dizziness. Objective: Vital Signs Temp Pulse Resp BP Pulse Ox 37.3 C 62 17 137/67 H 98 05/25/17 05:00 05/25/17 05:00 05/25/17 05:00 05/25/17 05:00 05/25/17 05:00 Laboratory Results 05/25/17 05:30 05/25/17 05:30 05/24/17 05/25/17 05/26/17 05:59 05:59 05:59 Intake Total 1767.2 Output Total 2795 Balance -1027.8 PT 14.8 SEC (12.0-15.0) 05/25/17 05:30 INR 1.14 (0.83-1.16) 05/25/17 05:30 Dopa at 2 mcg for MAPs > 80. No pacing overnoc. No sig CTOP. CXR-> No PTX, min pulm vasc congestion, hypoventilation, bibasilar atelectasis. Labs as expected. Physical Exam - Physical Exam General Appearance: alert, no apparent distress Respiratory: crackles (bases), other (blakes x 2 y-d to pleurovac, serosang drainage, no air leak) Cardiac/Chest: regular rate, rhythm, other (Sternotomy CDI. A&V wires intact.) Abdomen: normal bowel sounds, non-tender, soft Skin: warm/dry Extremities: other (no visible edema) ICD10 Worksheet Patient Problems: Problems Problem Status Onset Acute blood loss anemia Acute Anemia Acute S/P aortic valve replacement Acute S/P mitral valve repair Acute Acute on chronic systolic CHF (congestive heart failure), NYHA class 4 Acute Acute on chronic systolic CHF (congestive heart failure), NYHA class 4 Acute Aortic stenosis Acute Aortic stenosis Acute Nocturnal hypoxia Acute Nocturnal hypoxia Acute
[2017-05-25] MEDS: HEPARIN 5,000 UNIT/0.5 ML SYR SC SCH ×3 (06:52→20:34)
[2017-05-25] MEDS ORDERED: FUROSEMIDE 20 MG/2 ML VIAL IVP ONE (07:25)
[2017-05-25] MEDS ORDERED: traMADol 50 MG TAB PO PRN (07:42)
[2017-05-25] MEDS: MUPIROCIN 2% 22 GM OINT NS SCH ×2 (08:00→20:34)
[2017-05-25] MEDS: SENNOSIDES/DOCUSATE SODIUM TAB PO SCH ×2 (08:00→20:34)
[2017-05-25] MEDS: CARVEDILOL 3.125 MG TAB PO SCH ×2 (08:00→17:21)
[2017-05-25] MEDS: PANTOPRAZOLE SODIUM 40 MG TAB PO SCH (08:00)
[2017-05-25] MEDS: ASPIRIN 81 MG CHEWABLE TAB PO SCH (11:32)
[2017-05-25] MEDS ORDERED: FUROSEMIDE 40 MG/4 ML VIAL IVP ONE (15:38)
[2017-05-25] MEDS ORDERED: WARFARIN SODIUM 2.5 MG TAB PO ONE (16:00)
--- NOTE | 2017-05-25 16:15 | ASMTCASEMG ---
Living Arrangements What is your living Answers: With Spouse arrangement? Who do you live with? Type Of Residence What kind of residence do Answers: House you live in? Discharge Plan Comments Coordination Status Comments Notes: Pt is a 77 y/o man admitted for heart surgery. PT is recommending home vs SNF. OT is recommending home w/ supportive son. CM met w/ pt and son for dispo planning. Son is visiting from [place]. CM provided pt w/ senior blue book. Pt reports that the last time he was at the hospital, he discharged w/ HC. Pt is uncertain about SNF at this time. Pt and son will check in w/ CM tomorrow to discuss further. CM to follow. Plan: TBD Date Signed: 05/25/2017 04:14 PM Electronically Signed By:JI Pike
[2017-05-25] MEDS ORDERED: traZODone 50 MG TAB PO PRN (21:00)
[2017-05-26 04:10] LABS: PLATELET COUNT 110 10^3/uL (150-400)
[2017-05-26 04:21] LABS: INR 1.48 (0.83-1.16); PROTIME(PATIENT) 18.1 SEC (12.0-15.0)
[2017-05-26] MEDS: HEPARIN 5,000 UNIT/0.5 ML SYR SC SCH ×3 (05:15→21:47)
[2017-05-26] MEDS: HYDROCODONE/APAP 5/325 TAB PO PRN (05:16)
--- NOTE | 2017-05-26 06:45 | SOAPPROG ---
SOAP Progress Note Assessment/Plan: Assessment: POD#2 AVR #23 Magna bioprosthesis, MVA #32 Physio ring, prophylactic AtriClip ligation MALLORY BAV w severe /mod AI and mildly dilated aorta - s/p tissue AVR. Preferred antithrombotic prophylaxis with coumadin, duration 3 mo, target INR 2-3. Adjunctive baby ASA until INR stable in therapeutic range. Surveillance aorta per cards. Functional MR - Amenable to ring annuloplasty. Antithrombotic prophylaxis as per AVR. Valvular cardiomyopathy with chronic sCHF - Historical improvement of LVEF from 15% to 45% with balloon valvotomy and optimized medical therapy. Extubated in the OR. Hemodynamically stable early postop. No prolonged vasoactive support. No dysrhythmias. Adequately diuresing modest volume overload with stable renal fx. Staggered reintro of HF regimen in progress. Acute expected blood loss anemia - Stable. No transfusions required. VTE prophylaxis with SQ hep until INR > 1.8. 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 Switched to coumadin for valvular prophylaxis. Plan: TCPWs and mediastinal drain removed. Cont coreg 3.125 mg BID. Resume daily diuresis with demadex. Trial 40 mg. Start Losartan 25 mg HS with conservative hold parameters. Decr coumadin to 2 mg today. Cont inc activity as tolerated. Dispo - Anticipate home +/- C next 2-3 days. 05/26/17 06:43 Subjective: Comfortable. Light activity well tolerated. Improving appetite. Objective: Vital Signs Temp Pulse Resp BP Pulse Ox 36.3 C 75 16 142/71 H 98 05/26/17 04:00 05/26/17 04:00 05/26/17 04:00 05/26/17 04:00 05/26/17 04:00 Laboratory Results 05/26/17 04:00 05/26/17 04:00 05/25/17 05/26/17 05/27/17 05:59 05:59 05:59 Intake Total 1767.2 1692 Output Total 2795 1450 Balance -1027.8 242 PT 18.1 SEC (12.0-15.0) H 05/26/17 04:00 INR 1.48 (0.83-1.16) H 05/26/17 04:00 Holding SR with rates > 60 and no tachycardia. Upward creeping SBP. Excellent sats on 1 lpm O2. CXR -> improving aeration, min pulm vasc congestion, tiny bilat pl eff L>R. Ant mediastinal drain at removal criteria. Balanced I/Os. Labs ok. INR beginning to rise. Physical Exam - Physical Exam General Appearance: alert, no apparent distress Respiratory: lungs clear (grossly), other (Blakes x 2 to bulb suction, thin serosang drainage. Ant med drain removed without incident.) Cardiac/Chest: regular rate, rhythm, other (Sternum grossly stable. Sternotomy CDI. A&V wires intact. Vwires pulled without difficulty. Awires clipped at skin. ) ICD10 Worksheet Patient Problems: Problems Problem Status Onset Acute blood loss anemia Acute Anemia Acute S/P aortic valve replacement Acute S/P mitral valve repair Acute Acute on chronic systolic CHF (congestive heart failure), NYHA class 4 Acute Acute on chronic systolic CHF (congestive heart failure), NYHA class 4 Acute Aortic stenosis Acute Aortic stenosis Acute Nocturnal hypoxia Acute Nocturnal hypoxia Acute
[2017-05-26] MEDS: SENNOSIDES/DOCUSATE SODIUM TAB PO SCH ×2 (08:07→20:37)
[2017-05-26] MEDS: MUPIROCIN 2% 22 GM OINT NS SCH (08:07)
[2017-05-26] MEDS: PANTOPRAZOLE SODIUM 40 MG TAB PO SCH (08:07)
[2017-05-26] MEDS: CARVEDILOL 3.125 MG TAB PO SCH ×2 (08:07→17:47)
[2017-05-26] MEDS: ASPIRIN 81 MG CHEWABLE TAB PO SCH (08:07)
[2017-05-26] MEDS: TORSEMIDE 20 MG TAB PO SCH (10:12)
--- NOTE | 2017-05-26 13:52 | ASMTCMCOM ---
CM Note CM Note Notes: 05/26/2017 Case Mangement Note Reviewed pt with RN. PT is recommending home vs home care. Pt has recent open heart procedure and is recovering as expected. Case Management is anticipating independent d/c if pt continues on current recovery path. Case Management d/c poc: Home with family support and follow up as directed. Case Management to follow PT notes and will arrange home care if needed closer to d/c date. Date Signed: 05/26/2017 01:51 PM Electronically Signed By:Brenda Cole RN
[2017-05-26] MEDS ORDERED: WARFARIN SODIUM 2 MG TAB PO ONE (16:00)
[2017-05-26] MEDS ORDERED: AMIODARONE HCL 100 ML IV ONE (20:04)
[2017-05-26] MEDS ORDERED: AMIODARONE HCL 200 ML IV ONE (20:04)
[2017-05-26] MEDS ORDERED: NS 500 ML IV PRN (20:05)
[2017-05-26] MEDS ORDERED: LOSARTAN POTASSIUM 25 MG TAB PO SCH (21:00)
[2017-05-27] MEDS: HYDROCODONE/APAP 5/325 TAB PO PRN (00:44)
[2017-05-27] MEDS ORDERED: AMIODARONE HCL 540 MG in D5W 300 ML IV ONE (02:00)
[2017-05-27] MEDS: HEPARIN 5,000 UNIT/0.5 ML SYR SC SCH (05:12)
[2017-05-27 05:47] LABS: INR 1.58 (0.83-1.16)
--- NOTE | 2017-05-27 07:58 | SOAPPROG ---
SOAP Progress Note Assessment/Plan: Assessment: POD#3 AVR #23 Magna bioprosthesis, MVA #32 Physio ring, prophylactic AtriClip ligation MALLORY BAV w severe /mod AI and mildly dilated aorta - s/p tissue AVR. Preferred antithrombotic prophylaxis with coumadin, duration 3 mo, target INR 2-3. Adjunctive baby ASA until INR stable in therapeutic range. Surveillance aorta per cards. Functional MR - Amenable to ring annuloplasty. Antithrombotic prophylaxis as per AVR. Valvular cardiomyopathy with chronic sCHF - Historical improvement of LVEF from 15% to 45% with balloon valvotomy and optimized medical therapy. Extubated in the OR. Hemodynamically stable early postop. No prolonged vasoactive support. Adequately diuresing modest volume overload with stable renal fx. Staggered reintro of HF regimen in progress. Postoperative PAF - Last night. SR restored with amio. Assoc with conversion pauses/red and amio discontinued. No further red or arrhythmia. Acute expected blood loss anemia - Dramatic drop last 24hr. No evidence active bleeding. INR remains subtherapeutic. VTE prophylaxis held. Accuracy of H/H to be checked. 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 Switched to coumadin for valvular prophylaxis. Plan: Neil CBC. Tx 1u PRBC if H/H < 8/25. Cont coreg 3.125 mg BID. Cont demadex 40 mg daily. Cont hold Losartan 25 mg. Cont coumadin 2 mg daily. Remove post mediastinal drain. Baseline postop echo Mon. Dispo - Anticipate home +/- [facility] 05/27/17 07:53 Subjective: Doing ok. Aware of palpitations last night. Perhaps a little more breathless with activity this am, but no dizziness. Awaiting BM. Objective: Vital Signs Temp Pulse Resp BP Pulse Ox 36.6 C 68 20 118/67 96 05/27/17 07:50 05/27/17 07:50 05/27/17 07:50 05/27/17 07:50 05/27/17 07:50 Laboratory Results 05/27/17 05:20 05/27/17 05:20 05/26/17 05/27/17 05/28/17 05:59 05:59 05:59 Intake Total 1692 1290 Output Total 1450 5 Balance 242 -735 PT 19.0 SEC (12.0-15.0) H 05/27/17 05:20 INR 1.58 (0.83-1.16) H 05/27/17 05:20 AF w RVR and mild hypotension last noc. Conv to SB/SR w 1st degree AVB within 1 hr. SBP supported with fluid bolus. Stable suppl O2 req. CTOP at removal criteria. Improving fluid balance. Now within 2 kg admit wt. Cr ok. INR rising appropriately. H/H unexpected. - Pending Discharge Pending Discharge Within 48 Hours: Yes Pending Discharge Date: 05/29/17 Pending Discharge Time: 11:00 Physical Exam - Physical Exam General Appearance: alert, no apparent distress Respiratory: decreased breath sounds (rt base, o/w CTA), other (kristina x 1 to bulb suction, thin serosang drainage) Cardiac/Chest: regular rate, rhythm, other (Sternum grossly stable. Sternotomy CDI. ) Abdomen: non-tender Skin: warm/dry Extremities: other (no visible edema) ICD10 Worksheet Patient Problems: Problems Problem Status Onset Acute blood loss anemia Acute Anemia Acute Postoperative atrial fibrillation Acute S/P aortic valve replacement Acute S/P mitral valve repair Acute Acute on chronic systolic CHF (congestive heart failure), NYHA class 4 Acute Acute on chronic systolic CHF (congestive heart failure), NYHA class 4 Acute Aortic stenosis Acute Aortic stenosis Acute Nocturnal hypoxia Acute Nocturnal hypoxia Acute
[2017-05-27] MEDS: CARVEDILOL 3.125 MG TAB PO SCH ×2 (09:07→17:55)
[2017-05-27] MEDS: PANTOPRAZOLE SODIUM 40 MG TAB PO SCH (09:07)
[2017-05-27] MEDS: CHOLECALCIFEROL VIT D3 1,000 UNITS TAB PO SCH (09:07)
[2017-05-27] MEDS: SENNOSIDES/DOCUSATE SODIUM TAB PO SCH ×2 (09:08→20:24)
[2017-05-27] MEDS: TORSEMIDE 20 MG TAB PO SCH (14:23)
[2017-05-27] MEDS ORDERED: WARFARIN SODIUM 2 MG TAB PO ONE (16:00)
[2017-05-27] MEDS: ATORVASTATIN CALCIUM 20 MG TAB PO SCH (20:24)
[2017-05-27] MEDS ORDERED: AMIODARONE A.FIB-LOAD DOSE(ORDER 1/3) PREMIX IV ONE ×2 (21:30→23:00)
[2017-05-27] MEDS ORDERED: AMIODARONE HCL 100 ML IV ONE (22:50)
[2017-05-27] MEDS ORDERED: CARVEDILOL 3.125 MG TAB PO ONE (22:51)
[2017-05-27] MEDS ORDERED: METOPROLOL TARTRATE 5 MG/5 ML INJ IVP PRN (23:00)
[2017-05-28 03:59] LABS: INR 1.31 (0.83-1.16); PROTIME(PATIENT) 16.5 SEC (12.0-15.0)
[2017-05-28] MEDS ORDERED: METOPROLOL TARTRATE 25 MG TAB PO ONE ×2 (06:15→09:00)
[2017-05-28] MEDS ORDERED: POTASSIUM CL 20 MEQ TAB PO ONE ×2 (06:15→10:00)
[2017-05-28] MEDS ORDERED: AMIODARONE HCL 200 ML IV ONE (07:47)
--- NOTE | 2017-05-28 07:57 | SOAPPROG ---
SOAP Progress Note Assessment/Plan: Assessment: POD#4 AVR #23 Magna bioprosthesis, MVA #32 Physio ring, prophylactic AtriClip ligation MALLORY BAV w severe /mod AI and mildly dilated aorta - s/p tissue AVR. Preferred antithrombotic prophylaxis with coumadin, duration 3 mo, target INR 2-3. Adjunctive baby ASA until INR stable in therapeutic range. Surveillance aorta per cards. Functional MR - Amenable to ring annuloplasty. Antithrombotic prophylaxis as per AVR. Valvular cardiomyopathy with chronic sCHF - Historical improvement of LVEF from 15% to 45% with balloon valvotomy and optimized medical therapy. Extubated in the OR. Hemodynamically stable early postop. No prolonged vasoactive support. Adequately diuresing modest volume overload with stable renal fx. Staggered reintro of HF regimen in progress. Postoperative PAF/Flutter - Asx nocturnal episodes last couple days. Initial amio load assoc with conversion pauses/red and discont. Rebolused for recurrent RVR last noc with no sustained effect. Now appears to be in AFlutter refractory to addtl BB. K noted to be 3.4 and repleted. Cards consulted for assistance with rhythm management, ? DC CVSN. Acute expected blood loss anemia - Stable s/p 1u PRBC but still relatively low. Addtl unit to be transfused for dysrhythmia and BP support. 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 Switched to coumadin for valvular prophylaxis. Plan: Tx 1u PRBC. Target K > 4. Restart amiodarone. Switch coreg to metoprolol tartrate. Decr demadex to 20 mg daily. Stop Losartan. Incr coumadin to 3 mg today. Baseline postop echo tomorrow. Dispo - Anticipate home +/- [facility] 05/28/17 07:50 Subjective: Hanging in there. Aware of heart racing. No dizziness, nausea or SOB. +BM x 2 after lots of prunes yest. Objective: Vital Signs Temp Pulse Resp BP Pulse Ox 36.7 C 129 H 20 105/73 97 05/28/17 07:09 05/28/17 07:09 05/28/17 07:09 05/28/17 07:09 05/28/17 07:09 Laboratory Results 05/28/17 03:30 05/28/17 03:30 05/27/17 05/28/17 05/29/17 05:59 05:59 05:59 Intake Total 1290 1400 Output Total 2024 162 250 Balance -735 -225 -250 PT 16.5 SEC (12.0-15.0) H 05/28/17 03:30 INR 1.31 (0.83-1.16) H 05/28/17 03:30 Persistent Aflutter since MN. Rates 120s-130s. No hypotension. Excellent sats on 2 lpm O2. Adequate I/Os. Appropriate rise in H/H s/p 1u PRBC. Sl fall in INR. Sl low K. - Pending Discharge Pending Discharge Within 48 Hours: Yes Pending Discharge Date: 05/30/17 Pending Discharge Time: 11:00 Physical Exam - Physical Exam General Appearance: alert, no apparent distress Respiratory: crackles (bases), other (CT sites clean and dry) Cardiac/Chest: regular rate, rhythm, tachycardia, other (Sternotomy CDI) Abdomen: non-tender, soft Skin: warm/dry Extremities: other (no visible edema) ICD10 Worksheet Patient Problems: Problems Problem Status Onset Acute blood loss anemia Acute Anemia Acute Postoperative atrial fibrillation Acute S/P aortic valve replacement Acute S/P mitral valve repair Acute Acute on chronic systolic CHF (congestive heart failure), NYHA class 4 Acute Acute on chronic systolic CHF (congestive heart failure), NYHA class 4 Acute Aortic stenosis Acute Aortic stenosis Acute Nocturnal hypoxia Acute Nocturnal hypoxia Acute
[2017-05-28] MEDS: METOPROLOL TARTRATE 5 MG/5 ML INJ IVP SCH ×3 (09:36→09:52)
[2017-05-28] MEDS: PANTOPRAZOLE SODIUM 40 MG TAB PO SCH (10:02)
[2017-05-28] MEDS: ASPIRIN 81 MG CHEWABLE TAB PO SCH (10:02)
[2017-05-28] MEDS: SENNOSIDES/DOCUSATE SODIUM TAB PO PRN (10:02)
[2017-05-28] MEDS: CHOLECALCIFEROL VIT D3 1,000 UNITS TAB PO SCH (10:02)
[2017-05-28] MEDS: TORSEMIDE 20 MG TAB PO SCH (10:08)
--- NOTE | 2017-05-28 10:29 | PDCARPN ---
Cardiology Progress Note Assessment/Plan: Persistent Postoperative Atrial Flutter: Still with rapid ventricular response ; currently on intravenous amiodarone; receiving additional intravenous beta norbert today. - DIALLO/cardioversion tomorrow if remains in atrial flutter. - Continue systemic anticoagulation with warfarin; INR 1.3 today. Nonischemic Cardiomyopathy/Chronic Systolic CHF: Mild volume overload; diuresing slowly with torsemide. - Gradually phase in his usual CHF medication regimen. 05/28/17 10:28 Subjective: No complaints. Objective: Vital Signs (8 Hrs) Temp Pulse Resp BP Pulse Ox 05/28/17 10:07 126 H 92/74 L 05/28/17 09:52 126 H 101/75 05/28/17 09:43 127 H 105/75 05/28/17 09:36 128 H 98/70 L 05/28/17 09:00 97/72 L 05/28/17 08:55 36.3 C 128 H 22 H 82/61 L 99 05/28/17 08:40 36.4 C 130 H 22 H 99/65 L 98 05/28/17 07:09 36.7 C 129 H 20 105/73 97 05/28/17 06:17 131 H 108/73 05/28/17 05:55 131 H 108/73 05/28/17 05:53 131 H 108/73 05/28/17 04:00 37.1 C 130 H 18 104/69 96 05/28/17 03:29 131 H 104/69 Intake/Output (24 Hrs) 05/27/17 05/28/17 05/29/17 05:59 05:59 05:59 Intake Total 1290 1400 Output Total 2024 1625 250 Balance -735 -225 -250 Intake: Oral (ml) 1140 1400 IV Infused (ml) 150 Amiodarone HCl 100 ml @ 100 600 mls/hr IV ONCE ONE Rx #:[id number] Amiodarone HCl 200 ml @ 50 33.333 mls/hr IV ONCE ONE Rx#:[id number] Output: Urine (ml) 1974 162 250 Urinal 1974 162 250 Chest Tube Output (ml) 50 Location 2 Left Pleural 50 Other: Weight 69.4 kg 68.6 kg Intake Quantity Yes Yes Sufficient Number of Voids Urinal 1 1 Number of Stools Urinal 2 Result Diagrams: 05/28/17 03:30 02/11/18 03:30 - Physical Exam Constitutional: no apparent distress Eyes: anicteric sclera Ears, Nose, Mouth, Throat: moist mucous membranes Cardiovascular: other (tachycardic regular rhythm) Respiratory: clear to auscultate bilat Gastrointestinal: normoactive bowel sounds, no tenderness Skin: no rashes, no edema Neurologic: AAOx3 Psychiatric: not anxious ICD10 Worksheet Patient Problems: Problems Problem Status Onset Postoperative atrial fibrillation Acute Anemia Acute Acute blood loss anemia Acute S/P mitral valve repair Acute S/P aortic valve replacement Acute Nocturnal hypoxia Acute Nocturnal hypoxia Acute Acute on chronic systolic CHF (congestive heart failure), NYHA class 4 Acute Acute on chronic systolic CHF (congestive heart failure), NYHA class 4 Acute Aortic stenosis Acute Aortic stenosis Acute
[2017-05-28] MEDS ORDERED: AMIODARONE HCL 540 MG in D5W 300 ML IV ONE (14:00)
--- NOTE | 2017-05-28 14:07 | ASMTCMCOM ---
CM Note CM Note Notes: Spoke with MD; anticipate dc home independently with Outpatient Cardiac Rehab support. Met with pt to discuss dc poc; pt states his son Torin, from [place], will be here for a week helping out. After that, pt states he "has a lot of retired friends willing to help him with transport to & from Cardiac Rehab & with meals". Pt also has info on Meals on Wheels. No other needs at this time. Dc plan- Home Independent-Cardiac Rehab Date Signed: 05/28/2017 02:06 PM Electronically Signed By:Tiera Shell RN
[2017-05-28] MEDS ORDERED: WARFARIN SODIUM 3 MG TAB PO ONE ×2 (16:00→18:30)
[2017-05-28] MEDS: ATORVASTATIN CALCIUM 20 MG TAB PO SCH (21:06)
[2017-05-28] MEDS: METOPROLOL TARTRATE 25 MG TAB PO SCH (21:07)
[2017-05-29] MEDS ORDERED: ATROPINE SULFATE 1 MG/10 ML SYR IVP ONE (06:00)
[2017-05-29 06:32] LABS: INR 1.25 (0.83-1.16); PROTIME(PATIENT) 15.9 SEC (12.0-15.0)
--- NOTE | 2017-05-29 07:19 | SOAPPROG ---
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 Preferred antithrombotic prophylaxis with coumadin, duration 3 mo, target INR 2-3. Adjunctive baby ASA until INR stable in therapeutic range. Surveillance aorta per cards. Functional MR - Amenable to ring annuloplasty. Antithrombotic prophylaxis with Coumadin (3 months), INR target 2-3, and baby ASA. Valvular cardiomyopathy with chronic sCHF - Historical improvement of LVEF from 15% to 45% with balloon valvuloplasty and medical therapy. Continue beta-norbert /diuretics. Postoperative PAF/Flutter - Cardioversion planned for this morning. Continue amiodarone and beta-norbert post conversion. Coumadin for thromboprophylaxis. Acute expected blood loss anemia - stable s/p 2u PRBC. 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 Switched to Coumadin for valvular prophylaxis. Disposition - home Monday without services. Subjective: Feels well. Thirsty. Denies CP/SOB. Objective: Vital Signs Temp Pulse Resp BP Pulse Ox 36.7 C 125 H 18 101/78 98 05/29/17 05:00 05/29/17 05:00 05/29/17 05:00 05/29/17 05:00 05/29/17 05:00 Laboratory Results 05/29/17 05:55 05/29/17 05:55 05/28/17 05/29/17 05/30/17 05:59 05:59 05:59 Intake Total 1400 953 400 Output Total 1625 1275 100 Balance -225 -322 300 PT 15.9 SEC (12.0-15.0) H 05/29/17 05:55 INR 1.25 (0.83-1.16) H 05/29/17 05:55 Physical Exam - Physical Exam General Appearance: WD/WN, alert, no apparent distress EENT: No scleral icterus (R), No scleral icterus (L) Neck: normal inspection Respiratory: No respiratory distress Cardiac/Chest: tachycardia Abdomen: non-tender, soft, No distended Skin: normal color, warm/dry Extremities: No pedal edema Neuro/Psych: no motor/sensory deficits, alert, normal mood/affect, oriented x 3 ICD10 Worksheet Patient Problems: Problems Problem Status Onset Acute blood loss anemia Acute Anemia Acute Postoperative atrial fibrillation Acute S/P aortic valve replacement Acute S/P mitral valve repair Acute Acute on chronic systolic CHF (congestive heart failure), NYHA class 4 Acute Acute on chronic systolic CHF (congestive heart failure), NYHA class 4 Acute Aortic stenosis Acute Aortic stenosis Acute Nocturnal hypoxia Acute Nocturnal hypoxia Acute
--- NOTE | 2017-05-29 08:16 | CPEKG ---
Heart Rate: 126 RR Interval: 476 P-R Interval: 288 QRSD Interval: 112 QT Interval: 356 QTC Interval: 516 P [place]: 0 QRS [place]: -40 T Wave [place]: 121 EKG Severity - ABNORMAL ECG - EKG Impression: SINUS TACHYCARDIA EKG Impression: LVH WITH IVCD, LAD AND SECONDARY REPOL ABNRM EKG Impression: Short ID interval Electronically Signed By: Dylon Garcia 29-May-2017 10:38:51
[2017-05-29] MEDS: METOPROLOL TARTRATE 25 MG TAB PO SCH ×2 (08:55→20:28)
[2017-05-29] MEDS: PANTOPRAZOLE SODIUM 40 MG TAB PO SCH (08:55)
[2017-05-29] MEDS: AMIODARONE HCL 200 MG TAB PO SCH ×2 (08:56→20:28)
[2017-05-29] MEDS: ASPIRIN 81 MG CHEWABLE TAB PO SCH (08:56)
[2017-05-29] MEDS ORDERED: ATROPINE SULFATE 1 MG/10 ML SYR ONE (10:20)
--- NOTE | 2017-05-29 11:08 | PDHPUP ---
History & Physical Update H&P update statement: This history and physical update is based on an assessment of the patient which was completed after admission or registration (within 24 hours), but prior to the surgery/procedure. H&P update: H&P reviewed & patient examined, no change in patient's condition since H&P completed
--- NOTE | 2017-05-29 11:14 | PDANEPAE ---
ANE History of Present Illness here for DIALLO/CV ANE Past Medical History - Cardiovascular History Hx Hypertension: Yes Hx Arrhythmias: No Hx Chest Pain: No Hx Coronary Artery / Peripheral Vascular Disease: No Hx CHF / Valvular Disease: Yes Hx Palpitations: No Cardiovascular History Comment: AVR, MVR, AORTIC ANEURYSM - Pulmonary History Hx COPD: No Hx Asthma/Reactive Airway Disease: No Hx Recent Upper Respiratory Infection: No Hx Oxygen in Use at Home: No Hx Sleep Apnea: No Sleep Apnea Screening Result - Last Documented: Positive - Neurologic History Hx Cerebrovascular Accident: No Hx Seizures: No Hx Dementia: No - Endocrine History Hx Diabetes: No - Renal History Hx Renal Disorders: No - Liver History Hx Hepatic Disorders: No - Neurological & Psychiatric Hx Hx Neurological and Psychiatric Disorders: No - Cancer History Hx Cancer: No - Congenital Disorder History Hx Congenital Disorders: No - GI History Hx Gastrointestinal Disorders: No - Other Health History Other Health History: BRUISIES EASILY - Chronic Pain History Chronic Pain: No - Surgical History Prior Surgeries: cardiac cath, trigger finger release x 2 ANE Review of Systems Review of Systems: - Exercise capacity Exercise capacity: <4 METS METS (RN): 4 METS - Pacemaker Pacemaker Set Rate: 72 ANE Patient History - Allergies Allergies/Adverse Reactions: No Known Allergies Allergy (Verified 05/12/17 10:50) - Home Medications Home medications: home medication list seen and reviewed Home Medications: Atorvastatin Calcium [Lipitor 20 mg (*)] 20 mg PO HS 02/10/17 [Last Taken ] Cholecalciferol Vit D3 [Vitamin D3 (*)] 1,000 units PO DAILY 02/10/17 [Last Taken 05/23/17] traZODone [traZODONE 50MG (*)] 50 mg PO HS PRN 02/10/17 [Last Taken 3 Days Ago ~ 05/21/17] Acetaminophen [Tylenol 325mg (*)] 325 mg PO DAILY PRN 05/12/17 [Last Taken Unknown] Apixaban [Eliquis] 5 mg PO BID 05/12/17 [Last Taken 05/17/17] Carvedilol [Coreg (*)] 3.125 mg PO BIDMEAL 05/12/17 [Last Taken 05/23/17 18:00] Spironolactone [Aldactone 25 MG (*)] 25 mg PO DAILY 05/12/17 [Last Taken ] Torsemide [Demadex] 60 mg PO DAILY 05/12/17 [Last Taken 05/23/17] Herbals/Supplements -Info Only 1 ea PO DAILY 05/24/17 [Last Taken Unknown] - NPO status NPO Status: no food or drink >8 hours NPO Since - Liquids (Date): 05/23/17 NPO Since - Liquids (Time): 00:00 NPO Since - Solids (Date): 05/23/17 NPO Since - Solids (Time): 20:00 - Smoking Hx Smoking Status: Former smoker - Alcohol Use Alcohol Use: Sober - Family Anes Hx Family Hx Anesthesia Complications: none ANE Labs/Vital Signs - Labs Result Diagrams: 05/29/17 05:55 05/29/17 05:55 - Vital Signs Vital Signs: reviewed preoperatively; see RN documention for details Blood Pressure: 116/88 Heart Rate: 126 Respiratory Rate: 18 O2 Sat (%): 98 Height: 175.26 cm Weight: 69.9 kg ANE Physical Exam - Airway Neck exam: FROM Mallampati Score: Class 1 - Pulmonary Pulmonary: no respiratory distress - Cardiovascular Cardiovascular: regular rate and rhythym - ASA Status ASA Status: III ANE Anesthesia Plan Anesthesia Plan: GA with mask
[2017-05-29] MEDS ORDERED: PROPOFOL 200 MG/20 ML VIAL ONE ×2 (11:15)
--- NOTE | 2017-05-29 11:45 | PDTEE1 ---
DIALLO Cardioversion Procedure Indications: other (atrial flutter) Procedural Details: Pads were placed in anterior-posterior position. DIALLO probe was advanced and standard images obtained. There is no evidence of left atrial or left atrial appendage thrombus. Synchronized cardioversion attempt #1: 200J Results: normal sinus rhythm Conclusions: successful DIALLO cardioversion Patient Problems: Problems Problem Status Onset Acute blood loss anemia Acute Anemia Acute Postoperative atrial fibrillation Acute S/P aortic valve replacement Acute S/P mitral valve repair Acute Acute on chronic systolic CHF (congestive heart failure), NYHA class 4 Acute Acute on chronic systolic CHF (congestive heart failure), NYHA class 4 Acute Aortic stenosis Acute Aortic stenosis Acute Nocturnal hypoxia Acute Nocturnal hypoxia Acute
--- NOTE | 2017-05-29 12:01 | CPEKG ---
Heart Rate: 57 RR Interval: 1053 P-R Interval: 236 QRSD Interval: 106 QT Interval: 452 QTC Interval: 440 P [place]: -78 QRS [place]: -45 T Wave [place]: 107 EKG Severity - ABNORMAL ECG - EKG Impression: SINUS OR ECTOPIC ATRIAL RHYTHM EKG Impression: FIRST DEGREE AV BLOCK EKG Impression: LEFT ANTERIOR FASCICULAR BLOCK EKG Impression: LEFT VENTRICULAR HYPERTROPHY Electronically Signed By: Dylon Garcia 29-May-2017 12:33:53
[2017-05-29] MEDS ORDERED: WARFARIN SODIUM 5 MG TAB PO ONE (16:00)
--- NOTE | 2017-05-29 17:02 | ECHO ---
[email or web address] [address] [address] Main: [phone] Fax: Transesophageal Echocardiography Name: MAGALY MANTILLA MR#: [id number] Study Date: 05/29/2017 Study Time: 11:23 AM Date of : 1940 Age: 77 year(s) Height: ( ) Weight: ( ) BSA: Gender: Male Examination: DIALLO Indication: post op afib; pre-cardioversion Image Quality: Adequate Contrast: I.V. dose of agitated saline Requested by: Jaden Newton Heart Rate: Rhythm: Atrial fibrillation BP: / Procedure Staff Machine Filler Servicer: Mecca Carrion [facility] [[email or web address]] Reading Physician: Jaden Newton Requesting Provider: DIALLO Exam Details Contrast: I.V. dose of agitated saline Conclusions: Left atrial enlargement. Spontaneous contrast in the left atrium. No thrombus is noted in the left atrium. MALLORY appears oversewn. Mild mitral valve regurgitation is present. An annuloplasty ring is noted in the mitral valve position. The aortic valve is a bioprosthesis. The prosthetic aortic valve is normal. Trivial prosthesis regurgitation. DIALLO followed by successful cardioversion. Measurements: Chambers Valvular Assessment AV/MV Valvular Assessment TV/PV Normal Normal Normal Name Value Range Name Value Range Name Value Range Additional Measurements: Findings: Left Atrium: Left atrial enlargement. Lipomatous interatrial septum. Spontaneous contrast in the left atrium. No Patient: MAGALY MANTILLA Study Date: 05/29/2017 Page 1 of 2 11:23 AM thrombus is noted in the left atrium. Left Atrial Appendage: MALLORY appears oversewn. Right Atrium: Right atrial enlargement. No tumor in right atrium. Mitral Valve: Mild mitral valve regurgitation is present. An annuloplasty ring is noted in the mitral valve position. Aortic Valve: The aortic valve is a bioprosthesis. The prosthetic aortic valve is normal. Trivial prosthesis regurgitation. l1n (No Signature Object) Patient: MAGALY MANTILLA Study Date: 05/29/2017 Page 2 of 2 11:23 AM [id number]
[2017-05-29] MEDS: CHOLECALCIFEROL VIT D3 1,000 UNITS TAB PO SCH (17:39)
[2017-05-29] MEDS: POTASSIUM CL 20 MEQ TAB PO SCH (17:39)
[2017-05-29] MEDS: TORSEMIDE 20 MG TAB PO SCH (17:39)
[2017-05-29] MEDS: SENNOSIDES/DOCUSATE SODIUM TAB PO PRN (17:40)
[2017-05-29] MEDS: ATORVASTATIN CALCIUM 20 MG TAB PO SCH (20:29)
[2017-05-30 05:30] LABS: INR 1.42 (0.83-1.16); PROTIME(PATIENT) 17.5 SEC (12.0-15.0)
--- NOTE | 2017-05-30 06:50 | SOAPPROG ---
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 Preferred surgical antithrombotic prophylaxis with coumadin, duration 3 mo, target INR 2- 3. Adjunctive baby ASA until INR stable in therapeutic range. Surveillance aorta per cards. Functional MR - Amenable to ring annuloplasty. Antithrombotic prophylaxis as per AVR. Valvular cardiomyopathy with chronic sCHF - Historical improvement of LVEF from 15% to 45% with balloon valvotomy and optimized medical therapy. Extubated in the OR. Hemodynamically stable early postop. No prolonged vasoactive support. Adequately diuresing modest volume overload with stable renal fx. Staggered reintro of HF regimen in progress. Postoperative PAF/Flutter - Refractory to amio and escalating BB. Cards consulted. Successful DC CVSN yest. No recurrent arrhythmia. Antithrombotic prophylaxis as per AVR/MVA. Acute expected blood loss anemia - Stable s/p 2u PRBC. 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 Switched to coumadin for valvular prophylaxis. Plan: Ok for discharge. Instructions re diet, meds, activity, wound care and f/u reviewed. 05/30/17 06:50 Subjective: Feels well. No acute concerns. Ready for home. Objective: Vital Signs Temp Pulse Resp BP Pulse Ox 36.4 C 79 20 106/87 H 92 05/30/17 04:00 05/30/17 04:00 05/30/17 04:00 05/30/17 04:00 05/30/17 04:00 Laboratory Results 05/29/17 05:55 05/29/17 05:55 05/29/17 05/30/17 05/31/17 05:59 05:59 05:59 Intake Total 953 1900 Output Total 1275 1825 Balance -322 75 PT 17.5 SEC (12.0-15.0) H 05/30/17 05:05 INR 1.42 (0.83-1.16) H 05/30/17 05:05 Holding SR w occ PAC/PVC. Insufficient BP to uptitrate BB. Off O2. Balanced I/Os. INR on the rise. Physical Exam - Physical Exam General Appearance: alert, no apparent distress Respiratory: lungs clear (grossly) Cardiac/Chest: regular rate, rhythm, other (Sternum grossly stable. Sternotomy and CT sites CDI.) Abdomen: non-tender, soft Skin: warm/dry Extremities: other (no visible edema) ICD10 Worksheet Patient Problems: Problems Problem Status Onset Acute blood loss anemia Acute Anemia Acute Postoperative atrial fibrillation Acute S/P aortic valve replacement Acute S/P mitral valve repair Acute Acute on chronic systolic CHF (congestive heart failure), NYHA class 4 Acute Acute on chronic systolic CHF (congestive heart failure), NYHA class 4 Acute Aortic stenosis Acute Aortic stenosis Acute Nocturnal hypoxia Acute Nocturnal hypoxia Acute
--- NOTE | 2017-05-30 07:14 | PDDCSUM ---
Discharge Summary Discharge Summary: DATE OF ADMISSION: 05/24/17 DATE OF DISCHARGE: 05/30/17 DISPOSITION: Home, self-care PRINCIPAL ADMISSION DIAGNOSES: 1. Bicuspid aortic valve with severe stenosis and moderate insufficiency 2. Moderate mitral insufficiency 3. Valvular cardiomyopathy 4. Chronic systolic congestive heart failure PRINCIPAL DISCHARGE DIAGNOSES: 1. Status post aortic valve replacement with a bioprosthesis 2. Status post mitral valve ring annuloplasty 3. Status post prophylactic clip ligation of the left atrial appendage 4. Acute expected blood loss anemia 5. Postoperative paroxysmal atrial fibrillation and flutter responsive to electrical cardioversion HISTORY OF PRESENT ILLNESS: 77 yo male with a hx of critical , dilated ascending aorta, systolic CHF, and mild-moderate MR admitted for elective valvular surgery after aortic balloon valvotomy and optimization of medical therapy. PERTINENT PAST MEDICAL HISTORY: Mildly dilated ascending aorta; successful reduction of degree of from critical to severe s/p balloon valvotomy; mild LVSD; HTN; dyslipidemia; right atrial thrombus and RML PE in Feb 2017, anticoagulated with Eliquis MEDICATIONS ON ADMISSION: Coreg 3.125 mg BID, Eliquis 5 mg BID, Torsemide 20 mg 3 tabs (60 mg) daily, Aldactone 25 mg daily, Lipitor 20 mg HS, Vit D3 1,000 units daily, trazodone 50 mg HS prn, Tylenol 325 mg prn, herbal supplement once daily ALLERGIES/SENSITIVITIES: NKDA PERSONAL BANKER: Cardiology (Aman) PROCEDURES/IMAGIN/7 (Jorge): Aortic valve replacement with a 25 mm Yates Magna bioprosthesis. Mitral valve annuloplasty with a 32 mm Yates Physio ring. Prophylactic AtriClip ligation of the left atrial appendage. 05/29 (Aman): DIALLO guided electrical cardioversion ABBREVIATED HOSPITAL COURSE BY ACTIVE PROBLEM LIST: 1. 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 Preferred surgical antithrombotic prophylaxis with coumadin, duration 3 mo, target INR 2- 3. Adjunctive baby ASA until INR stable in therapeutic range. Surveillance aorta per cards. 2. Functional MR - Amenable to ring annuloplasty. Antithrombotic prophylaxis as per AVR. 3. Valvular cardiomyopathy with chronic sCHF - Historical improvement of LVEF from 15% to 45% with balloon valvotomy and optimized medical therapy. Extubated in the OR. Hemodynamically stable early postop. No prolonged vasoactive support. Modest volume overload diuresed with stable renal fx. Reintro of HF regimen delayed by treatment of PAF. Coreg switched to metoprolol for BP tolerance. 4. Postoperative PAF/Flutter - Refractory to amio and escalating BB. Cards consulted. SR restored with DC CVSN. No recurrent arrhythmia. Antithrombotic prophylaxis as per AVR/MVA. 5. Acute expected blood loss anemia - Stable s/p 2u PRBC. 6. 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 Switched to coumadin for valvular prophylaxis. No RA thrombus seen by intraop or postop DIALLO. DISCHARGE CLINICAL INFORMATION: Sternum grossly stable. Sternotomy CDI, sutured, +Dermabond. HR 60s-70s. SBP 100s-120s. SpO2 92% RA. Wt 1.9 kg above admission at 67.6 kilos. WBC 9.2, Hgb 10.6, HCT 30.2, Plt 168, Na 137, K 4.4, Cr 0.9 Coumadin flowsheet: Date INR mg 05/25 1.14 2.5 05/26 1.48 2.0 05/27 1.58 2.0 05/28 1.31 3.0 05/29 1.25 5.0 05/30 1.42 2.5 DISCHARGE MEDICATIONS: As on admission with the following adjustments: Hold Coreg. Hold Aldactone. Discontinue Eliquis. Decrease Torsemide to 20 mg daily. NEW prescriptions: 1. Amiodarone 200 mg BID thru 06/12, then 200 mg daily x 2 weeks. 2. Metoprolol tartrate 25 mg BID. 3. Coumadin 2.5 mg T,Th, S,S alternating with 5 mg M,W,F or as directed by INR/ anticoagulation clinic. 4. Tramadol 50 mg 1/2 tab to 2 tabs q 6-8 hrs prn incisional discomfort. 5. Klor-Con 20 meq daily with Torsemide. 6. OTC: ASA 81 mg daily. Hold for INR > 3. FOLLOW UP APPOINTMENTS: 1. CV surgery: with Dr Patel at [facility] on 06/06 at 10:30 am. 2. Cardiology: with Dr Ziegler at [facility] within 2 weeks. Appointment to be established during surgical visit. FOLLOW UP TESTING: INR at [facility] on 05/31 at 2:30 pm. CXR prior to surgical appointment.
[2017-05-30 08:32] VITALS: BP 109/65; PULSE 72; RESP 18; TEMP 97.8; O2SAT 91
[2017-05-30] MEDS ORDERED: WARFARIN SODIUM 2.5 MG TAB PO SCH (09:00)
[2017-05-30] MEDS: METOPROLOL TARTRATE 25 MG TAB PO SCH (09:20)
[2017-05-30] MEDS: ASPIRIN 81 MG CHEWABLE TAB PO SCH (09:20)
[2017-05-30] MEDS: POTASSIUM CL 20 MEQ TAB PO SCH (09:20)
[2017-05-30] MEDS: PANTOPRAZOLE SODIUM 40 MG TAB PO SCH (09:20)
[2017-05-30] MEDS: CHOLECALCIFEROL VIT D3 1,000 UNITS TAB PO SCH (09:20)
[2017-05-30] MEDS: AMIODARONE HCL 200 MG TAB PO SCH (09:21)
[2017-05-30] MEDS: TORSEMIDE 20 MG TAB PO SCH (11:26)
--- NOTE | 2017-05-30 15:13 | ASDISCHSUM ---
Discharge Information Plan Status:Home with No Needs Medically Cleared to Leave:05/29/2017 Discharge Date:05/30/2017 01:15 PM CM D/C Disposition:Home, Routine, Self-Care ADT D/C Disposition:Home, Routine, Self-Care Projected Discharge Date:05/26/2017 11:00 AM Transportation at D/C: Discharge Delay Reason: Follow-Up Date:05/26/2017 11:00 AM Discharge Slot: Final Diagnosis: Placement Information Referral Type:*Home Health Care Services Referral ID:[id number] Provider Name: Address 1: Phone Number: Address 2: Fax Number: City: Selection Factors: State: Patient Contact Information Contact Name:JENIFFER Relationship:Son Address:[facility] City:[place] Phone: State/[facility] Code:[place] [address] Email: Financial Information Financial Class:Medicare Primary Plan Desc:MEDICARE INPATIENT Primary Plan Number:[id number] Secondary Plan Desc:[employer]ARP/MDR SUPPLEMENT Secondary Plan Number:[id number] Assessment Information [facility] Initial CM Assessment Living Arrangements What is your living Answers: With Spouse arrangement? Who do you live with? Type Of Residence What kind of residence do Answers: House you live in? Discharge Plan Comments Coordination Status Comments Notes: Pt is a 77 y/o man admitted for heart surgery. PT is recommending home vs SNF. OT is recommending home w/ supportive son. CM met w/ pt and son for dispo planning. Son is visiting from [place]. CM provided pt w/ [facility] blue book. Pt reports that the last time he was at the hospital, he discharged w/ HC. Pt is uncertain about SNF at this time. Pt and son will check in w/ CM tomorrow to discuss further. CM to follow. Plan: TBD Date Signed: 05/25/2017 04:14 PM Electronically Signed By:JI Pike [facility] Progress Note CM Note CM Note Notes: 05/26/2017 Case Mangement Note Reviewed pt with RN. PT is recommending home vs home care. Pt has recent open heart procedure and is recovering as expected. Case Management is anticipating independent d/c if pt continues on current recovery path. Case Management d/c poc: Home with family support and follow up as directed. Case Management to follow PT notes and will arrange home care if needed closer to d/c date. Date Signed: 05/26/2017 01:51 PM Electronically Signed By:Brenda Cole RN [facility] CM Progress Note CM Note CM Note Notes: Spoke with MD; anticipate dc home independently with Outpatient Cardiac Rehab support. Met with pt to discuss dc poc; pt states his son Torin, from [place], will be here for a week helping out. After that, pt states he "has a lot of retired friends willing to help him with transport to & from Cardiac Rehab & with meals". Pt also has info on Meals on Wheels. No other needs at this time. Dc plan- Home Independent-Cardiac Rehab Date Signed: 05/28/2017 02:06 PM Electronically Signed By:Tiera Shell RN Case Management Discharge Plan Note Case Management Discharge Discharge Order Complete? Answers: Yes Patient to Obtain Answers: via Family Medications Transportation Arranged Answers: Family/Friends Discharge Comments Notes: 05/30/2017 Case Management Note Pt discharged home independently with family support. Pt to follow up as directed. Date Signed: 05/30/2017 08:16 AM Electronically Signed By:Brenda Cole RN Intervention Information Intervention Type:*IM-Signed Date of Service:05/30/2017 10:08 AM Patient Type:Inpatient Staff Member:Areli Davis Hours: Discipline: Severity: Comment:
[2017-05-31] MEDS ORDERED: WARFARIN SODIUM 5 MG TAB PO SCH (09:00)
== END 2017-05-30 13:15 | disposition home or self-care (01) | DRG 220 ==
LOC: F3N 05:40 → F2N 11:26 → F2W 05-25 10:45
PROVIDERS: ADMIT Thoracic Surgery (Cardiothoracic Vascular Surgery); ATTEND Thoracic Surgery (Cardiothoracic Vascular Surgery)
DX: I35.2 Nonrheumatic aortic (valve) stenosis with insufficiency (principal); I42.9 Cardiomyopathy, unspecified; D62 Acute posthemorrhagic anemia; I50.22 Chronic systolic (congestive) heart failure; I77.810 Thoracic aortic ectasia; I11.0 Hypertensive heart disease with heart failure; I48.0 Paroxysmal atrial fibrillation; E78.5 Hyperlipidemia, unspecified; Z79.01 Long term (current) use of anticoagulants; Z87.891 Personal history of nicotine dependence
CPT/HCPCS: 82947-QW; 97116-GP; 97161-GP; 97165-GO; 97530-GO; 97530-GP; 97535-GO; G8978-GP-CK; G8979-GP-CJ; G8987-GO-CI; G8987-GO-CJ; G8988-GO-CI; G8989-GO-CI; J0153; J0171; J0282; J0461; J0690; J1170; J1250; J1265; J1644; J1815; J1940; J2001; J2150; J2250; J2260; J2270; J2370; J2704; J2720; J2765; J2930; J3010; J3475; J3480; J7060; P9016; P9041

== ENCOUNTER → 2017-06-06 | Outpatient (CLI) | payer OTHER, MEDICARE | LOC: FIMAGING 10:06 | PROVIDERS: ATTEND Thoracic Surgery (Cardiothoracic Vascular Surgery) | DX: Z98.890 Other specified postprocedural states (principal); Z95.2 Presence of prosthetic heart valve ==

== ENCOUNTER → 2017-07-04 | Outpatient (CLI) | payer OTHER, MEDICARE | LOC: BHFA 10:45 | PROVIDERS: ATTEND Internal Medicine Cardiovascular Disease | DX: I48.91 Unspecified atrial fibrillation (principal); Z95.2 Presence of prosthetic heart valve ==

== ENCOUNTER → 2017-07-11 | Outpatient (CLI) | payer OTHER, MEDICARE | LOC: FIMAGING 10:13 | PROVIDERS: ATTEND Family Medicine | DX: R20.0 Anesthesia of skin (principal); R20.2 Paresthesia of skin; I70.8 Atherosclerosis of other arteries ==

== ENCOUNTER 2017-07-25 23:44 | Emergency (ER) | payer OTHER, MEDICARE ==
[2017-07-25 23:49] VITALS: BP 114/74
--- NOTE | 2017-07-25 23:56 | EDPHY ---
H & P Stated Complaint: bilat eyelid swelling and redness Time Seen by Provider: 07/26/17 00:20 HPI/ROS: HPI CHIEF COMPLAINT: Bilateral upper lid edema status post surgery HISTORY OF PRESENT ILLNESS: Patient very pleasant 77-year-old male, he is on Coumadin, presents emergency room after he had skin cancer on the top of his forehead surgically removed yesterday. He reports today that he has noted some bilateral upper lid edema. There has been no signs of infection or fever. He noticed today that is progressively gotten slightly more swollen. Denies any significant pain. He presents emergency room with hemodynamically stable and stable vital signs. He is afebrile. He has bilateral upper lid edema most likely from recent surgery and tracking of the inflammation/fluid down to his upper eyelids from his forehead. I have reassured him. There is no evidence of significant swelling on exam or bleeding or infection at this time. I have discussed return precautions with him he understands. Past Medical History: Forehead skin cancer, aortic valve replacement and Past Surgical History: Aortic valve on Coumadin Social History: Denies drugs alcohol tobacco. Family History: Noncontributory ROS REVIEW OF SYSTEMS: A comprehensive 10 point review of systems is otherwise negative aside from elements mentioned in the history of present illness. Exam Constitutional appears well nontoxic triage nursing summary reviewed, vital signs reviewed, awake/alert. Eyes normal conjunctivae and sclera, EOMI, PERRLA. Upper eyelids bilaterally a symmetrically edematous clear fluid with a slight pink hue to it. No signs of infection, no signs of orbital or periorbital cellulitis. Most likely inflammation and fluid tracking down the forehead. HENT normal inspection, atraumatic, moist mucus membranes, no epistaxis, neck supple/ no meningismus, no raccoon eyes. Respiratory clear to auscultation bilaterally, normal breath sounds, no respiratory distress, no wheezing. Cardiovascular rate normal, regular rhythm, no murmur, no edema, distal pulses normal. Gastrointestinal soft, non-tender, no rebound, no guarding, normal bowel sounds, no distension, no pulsatile mass. Genitourinary no CVA tenderness. Musculoskeletal no midline vertebral tenderness, full range of motion, no calf swelling, no tenderness of extremities, no meningismus, good pulses, neurovascularly intact. Skin pink, warm, & dry, no rash, skin atraumatic. Neurologic awake, alert and oriented x 3, AAOx3, moves all 4 extremities equally, motor intact, sensory intact, CN II-XII intact, normal cerebellar, normal vision, normal speech. Psychiatric normal mood/affect. Heme/Lymph/Immune no lymphadenopathy. Differential Diagnosis: Includes but is not limited to in a particular order upper eyelid edema due to recent surgery, doubt acute infection at this time. Medical Decision Making: Recommend for this patient cool compresses, and lying flat due to dependent edema. Additionally discussed return precautions with him he understands return develops any worsening symptoms includes fever, worsening pain, trouble with his vision, drainage. Re-evaluation: Source: Patient - Personal History Current Tetanus/Diphtheria Vaccine: Yes Current Tetanus Diphtheria and Acellular Pertussis (TDAP): Yes - Medical/Surgical History Hx Asthma: No Hx Chronic Respiratory Disease: No Hx Diabetes: No Hx Cardiac Disease: Yes Hx Renal Disease: No Hx Cirrhosis: No Hx Alcoholism: No Hx HIV/AIDS: No Hx Splenectomy or Spleen Trauma: No Other PMH: CHF HTN hyperlipids, aortic valve replacement - Social History Smoking Status: Former smoker Constitutional: Initial Vital Signs Temperature (C) 36.4 C 07/25/17 23:45 Heart Rate 69 07/25/17 23:45 Respiratory Rate 16 07/25/17 23:45 Blood Pressure 114/74 07/25/17 23:45 O2 Sat (%) 96 07/25/17 23:45 O2 Delivery Mode Room Air Allergies/Adverse Reactions: No Known Allergies Allergy (Verified 07/25/17 23:49) Home Medications: Medication Instructions Recorded Cholecalciferol Vit D3 [Vitamin D3 1,000 units PO DAILY 02/10/17 (*)] traZODone [traZODONE 50MG (*)] 50 mg PO HS PRN 02/10/17 Acetaminophen [Tylenol 325mg (*)] 325 mg PO DAILY PRN 05/12/17 Herbals/Supplements -Info Only 1 ea PO DAILY 05/24/17 Aspirin [Aspirin 81mg (*)] 81 mg PO DAILY tab.chew 05/30/17 Metoprolol Tartrate [Lopressor 25 25 mg PO BID #60 tab 05/30/17 mg (*)] Torsemide [Demadex] 20 mg PO DAILY AT 10AM tab 05/30/17 Warfarin Sodium [Coumadin 2.5MG 2.5 mg PO EVERY OTHER DAY #100 tab 05/30/17 (*)] Warfarin Sodium [Coumadin 5MG (*)] 5 mg PO EVERY OTHER DAY tab 05/30/17 Departure - Departure Disposition: Home, Routine, Self-Care Clinical Impression: Periorbital edema Condition: Good Instructions: Lymphedema (ED) Additional Instructions: 1. Recommend cool compresses. 2. Return emergency room if you have fever worsening pain or swelling. 3. Lay flat tonight. 4. Follow up with here c software developer as well. But return emergency room for worsening symptoms Referrals: ROBERTO MORENO [Other] - As per Instructions
== END 2017-07-26 00:26 | disposition home or self-care (01) ==
DX: H05.223 Edema of bilateral orbit (principal); I11.0 Hypertensive heart disease with heart failure; I50.9 Heart failure, unspecified; Z87.891 Personal history of nicotine dependence; Z79.82 Long term (current) use of aspirin; Z79.01 Long term (current) use of anticoagulants

== ENCOUNTER → 2017-11-08 | Outpatient (CLI) | payer OTHER, MEDICARE | LOC: BHFA 09:30 | PROVIDERS: ATTEND Internal Medicine Cardiovascular Disease | DX: I50.9 Heart failure, unspecified (principal); Z95.2 Presence of prosthetic heart valve; I48.92 Unspecified atrial flutter ==

== ENCOUNTER 2017-11-16 10:01 | Day surgery (SDC) | payer OTHER, MEDICARE ==
[~2017-11-16 10:01] MED LIST: ATROPINE SULFATE 1 MG/10 ML SYR IVP ONE; NS 1,000 ML IV ONE
--- NOTE | 2017-11-16 10:23 | CPEKG ---
Heart Rate: 134 RR Interval: 448 QRSD Interval: 114 QT Interval: 376 QTC Interval: 562 QRS [place]: -47 T Wave [place] Reading: 103 EKG Severity - ABNORMAL ECG - EKG Impression: JUNCTIONAL TACHYCARDIA VS SINUS TACHYCARDIA WITH FIRST DEGREE AV BLOCK EKG Impression: LEFT ANTERIOR FASCICULAR BLOCK EKG Impression: PROBABLE LVH WITH SECONDARY REPOL ABNRM Electronically Signed By: Estrella Lopez 16-Nov-2017 11:03:20
[2017-11-16] MEDS ORDERED: PROPOFOL 200 MG/20 ML VIAL ONE ×2 (10:45→11:40)
[2017-11-16] MEDS ORDERED: MIDAZOLAM 2 MG/2 ML VIAL ONE (10:45)
[2017-11-16] MEDS ORDERED: LIDOCAINE 2% 5 ML SDV ONE (10:46)
[2017-11-16] MEDS ORDERED: ACETAMINOPHEN 500 MG TAB PO PRN (10:52)
[2017-11-16] MEDS ORDERED: ALBUTEROL 3 ML DEYVIAL IH PRN (10:52)
[2017-11-16] MEDS ORDERED: NALOXONE HCL 0.4 MG/ML INJ IVP PRN (10:52)
[2017-11-16] MEDS ORDERED: HYDROCODONE/APAP 5/325 TAB PO PRN (10:52)
[2017-11-16] MEDS ORDERED: fentaNYL 100 MCG/2 ML INJ IVP PRN (10:52)
--- NOTE | 2017-11-16 10:52 | PDANEPAE ---
ANE History of Present Illness 77 year old with 1-2 week history of A-fib for DIALLO and Cardioversion. ANE Past Medical History - Cardiovascular History Hx Hypertension: Yes Hx Arrhythmias: No Hx Chest Pain: No Hx Coronary Artery / Peripheral Vascular Disease: No Hx CHF / Valvular Disease: Yes Hx Palpitations: No Cardiovascular History Comment: AVR, MVR, AORTIC ANEURYSM - Pulmonary History Hx COPD: No Hx Asthma/Reactive Airway Disease: No Hx Recent Upper Respiratory Infection: No Hx Oxygen in Use at Home: No Hx Sleep Apnea: No - Neurologic History Hx Cerebrovascular Accident: No Hx Seizures: No Hx Dementia: No - Endocrine History Hx Diabetes: No - Renal History Hx Renal Disorders: No - Liver History Hx Hepatic Disorders: No - Neurological & Psychiatric Hx Hx Neurological and Psychiatric Disorders: No - Cancer History Hx Cancer: No - Congenital Disorder History Hx Congenital Disorders: No - GI History Hx Gastrointestinal Disorders: No - Other Health History Other Health History: BRUISIES EASILY - Chronic Pain History Chronic Pain: No - Surgical History Prior Surgeries: cardiac cath, trigger finger release x 2 ANE Review of Systems Review of systems is: negative Review of Systems: ANE Patient History - Allergies Allergies/Adverse Reactions: No Known Allergies Allergy (Verified 07/25/17 23:49) - Home Medications Home Medications: Cholecalciferol Vit D3 [Vitamin D3 (*)] 1,000 units PO DAILY 02/10/17 [Last Taken 05/23/17] traZODone [traZODONE 50MG (*)] 50 mg PO HS PRN 02/10/17 [Last Taken 3 Days Ago ~ 05/21/17] Acetaminophen [Tylenol 325mg (*)] 325 mg PO DAILY PRN 05/12/17 [Last Taken Unknown] Herbals/Supplements -Info Only 1 ea PO DAILY 05/24/17 [Last Taken Unknown] - Smoking Hx Smoking Status: Former smoker - Family Anes Hx Family Hx Anesthesia Complications: none ANE Labs/Vital Signs - Labs Result Diagrams: 11/16/17 10:25 11/16/17 10:25 - Vital Signs Height: 175.26 cm Weight: 72.575 kg ANE Physical Exam - Airway Neck exam: FROM Mallampati Score: Class 2 Mouth exam: normal dental/mouth exam - Pulmonary Pulmonary: no respiratory distress - Cardiovascular Cardiovascular: irregularly irregular - ASA Status ASA Status: III ANE Anesthesia Plan Anesthesia Plan: MAC
[2017-11-16 10:53] LABS: INR 2.29 (0.83-1.16); PROTIME(PATIENT) 25.2 SEC (12.0-15.0)
--- NOTE | 2017-11-16 11:15 | PDHPUP ---
History & Physical Update H&P update statement: This history and physical update is based on an assessment of the patient which was completed after admission or registration (within 24 hours), but prior to the surgery/procedure. H&P update: H&P reviewed & patient examined, no change in patient's condition since H&P completed (Reviewed Dr. Ziegler' office note dated 11/08/2017)
[2017-11-16] MEDS ORDERED: PERFLUTREN LIPID MICROSPHERES 1.1 MG/ML VIAL IV ONE (11:37)
--- NOTE | 2017-11-16 11:52 | PDTEE1 ---
DIALLO Cardioversion Procedure Procedure: electrical cardioversion, transesophageal echo Indications: other (Atrial flutter) Consent: signed and in chart Anticoagulation: warfarin Procedural Details: Sedation provided by the anesthesia service. Pads were placed in anterior- posterior position. DIALLO probe was advanced and standard images obtained. Definity contrast was used for improved visualization of left cardiac chambers. The left atrial appendage was partially oversewn. There is no evidence of left atrial or left atrial appendage thrombus. Synchronized cardioversion attempt #1: 200J Results: normal sinus rhythm Conclusions: successful DIALLO cardioversion (Follow-up with Dr. Ziegler. Consult with Dr. Bedoya as an outpatient for consideration of atrial flutter ablation.) Patient Problems: Problems Problem Status Onset Acute blood loss anemia Acute Acute on chronic systolic CHF (congestive heart failure), NYHA class 4 Acute Acute on chronic systolic CHF (congestive heart failure), NYHA class 4 Acute Anemia Acute Aortic stenosis Acute Aortic stenosis Acute Nocturnal hypoxia Acute Nocturnal hypoxia Acute Postoperative atrial fibrillation Acute S/P aortic valve replacement Acute S/P mitral valve repair Acute
--- NOTE | 2017-11-16 12:02 | POSTANESTH ---
Post Anesthetic Evaluation Cardiovascular Status: Normal, Stable Respiratory Status: Normal, Stable Level of Consciousness/Mental Status: Mildly Sleepy, Arousable, Moderately Sleepy Pain Control: Adequate, Prn Tx Ordered Nausea/Vomiting Control: Adequate, Prn Tx Ordered Complications Possibly Related to Anesthesia: None Noted
[2017-11-16] MEDS ORDERED: LIDOCAINE/PRILOCAINE 1 EACH CRTUBE TP ONE (12:30)
[2017-11-16 13:39] VITALS: BP 110/70
--- NOTE | 2017-11-16 17:05 | ECHO ---
[email or web address] [id number] Main: [phone] Fax: Transesophageal Echocardiography Name: MAGALY MANTILLA MR#: [id number] Study Date: 11/16/2017 Study Time: 11:16 AM Date of : 1940 Age: 77 year(s) Height: ( ) Weight: ( ) BSA: Gender: Male Examination: DIALLO Indication: AFIB; pre-cardioversion Image Quality: Contrast: 0.165 mg Requested by: Annia Parmar Heart Rate: Rhythm: BP: / Procedure Staff Hypo Splasher: Mecca Carrion [facility] Reading Physician: Annia Parmar MD Requesting Provider: DIALLO Exam Details Contrast: 0.165 mg Conclusions: Severely reduced systolic LV function. The ejection fraction is visually estimated to be 20 %. Mildly reduced RV function. Spontaneous contrast in the left atrium. No thrombus is noted in the left atrium. The MALLORY has been oversewn. Definity used to rule out MALLORY thrombus.. The mitral valve has been repaired. The aortic valve is a bioprosthesis. No prosthesis regurgitation. Mild to moderate tricuspid valve regurgitation. Measurements: Chambers Valvular Assessment AV/MV Valvular Assessment TV/PV Normal Normal Normal Name Value Range Name Value Range Name Value Range Visual EF: 20 % AV Vmax: 1.30 m/s (1 m/s-1.7 TR Vmax: 1.79 mm/s ( - ) m/s) TR PGmax: 13 mmHg ( - ) AV maxP mmHg ( - ) MV meanP mmHg ( - ) Additional Measurements: Valvular Assessment AV/MV Patient: MAGALY MANTILLA Study Date: 11/16/2017 Page 1 of 2 11:16 AM Name Value MV VTI: 7.63 cm Findings: Left Ventricle: Severely reduced systolic LV function. The ejection fraction is visually estimated to be 20 %. Right Ventricle: Mildly reduced RV function. Left Atrium: Spontaneous contrast in the left atrium. No thrombus is noted in the left atrium. Left Atrial Appendage: No color flow doppler in the left atrial appendage. No thrombus in left appendage. Spontaneous contrast is present in the left atrial appendage. The MALLORY has been oversewn. Definity used to rule out MALLORY thrombus.. Mitral Valve: No prosthesis stenosis. No MV prosthesis regurgitation. The mitral valve has been repaired. Aortic Valve: The aortic valve is a bioprosthesis. No prosthesis stenosis. No prosthesis regurgitation. Tricuspid Valve: The tricuspid valve is normal in appearance and function. Mild to moderate tricuspid valve regurgitation. Pulmonic Valve: The pulmonic valve is normal in appearance and function. There is no pulmonic regurgitation seen. Pericardium: No pericardial effusion. l1n (No Signature Object) Patient: MAGALY MANTILLA Study Date: 11/16/2017 Page 2 of 2 11:16 AM [id number]
--- NOTE | 2017-11-17 10:49 | CPEKG ---
Heart Rate: 53 RR Interval: 1132 P-R Interval: 132 QRSD Interval: 114 QT Interval: 504 QTC Interval: 474 P [place]: -35 QRS [place]: -46 T Wave [place]: 93 EKG Severity - ABNORMAL ECG - EKG Impression: SINUS RHYTHM EKG Impression: LEFT ANTERIOR FASCICULAR BLOCK EKG Impression: LEFT VENTRICULAR HYPERTROPHY Electronically Signed By: Estrella Lopez 17-Nov-2017 20:58:32
== END 2017-11-16 13:30 | disposition home or self-care (01) ==
LOC: FCATH 10:01
PROVIDERS: ATTEND Internal Medicine Cardiovascular Disease
PROC: 5A2204Z Restoration of Cardiac Rhythm, Single (ICD-10-PCS; principal; 2017-11-16)
DX: I48.92 Unspecified atrial flutter (principal); Z95.2 Presence of prosthetic heart valve; Z86.79 Personal history of other diseases of the circulatory system
CPT/HCPCS: 92960; 93005; C8927; J2250; J2704; Q9957

== ENCOUNTER → 2017-12-04 | Outpatient (CLI) | payer OTHER, MEDICARE | DX: I42.9 Cardiomyopathy, unspecified (principal) ==

== ENCOUNTER 2017-12-20 10:59 | Observation (INO) | payer OTHER, MEDICARE ==
[2017-12-20] MEDS ORDERED: NS 1,000 ML IV ONE (11:06)
[2017-12-20 11:37] LABS: PLATELET COUNT 153 10^3/uL (150-400)
[2017-12-20 11:45] LABS: INR 1.5 (0.83-1.16); PROTIME(PATIENT) 18.3 SEC (12.0-15.0)
--- NOTE | 2017-12-20 12:02 | CPEKG ---
Test Reason : OPEN Blood Pressure : / mmHG Vent. Rate : 075 BPM Atrial Rate : 066 BPM P-R Int : 186 ms QRS Dur : 102 ms QT Int : 435 ms P-R-T Axes : -39 -48 085 degrees QTc Int : 486 ms Sinus rhythm Multiple ventricular premature complexes LAD, consider left anterior fascicular block Confirmed by Dylon Garcia ([id number]) on 12/20/2017 12:02:22 PM Referred By: Confirmed By:Dylon Garcia
--- NOTE | 2017-12-20 13:18 | PDGENHP ---
History & Physical Chief Complaint: afl Relevant Physical Exam: s1s2 rrr cta ao3 Cardiorespiratory Assessment: for AFL ablation
[2017-12-20] MEDS ORDERED: HEPARIN 10,000 UNIT/10 ML MDV (1,000 UNIT/ML) ONE (13:34)
[2017-12-20] MEDS ORDERED: LIDOCAINE 1% 300 MG/30 ML SDV ONE (13:34)
[2017-12-20] MEDS ORDERED: BUPIVACAINE 0.75% 10 ML SDV ONE (13:35)
[2017-12-20] MEDS ORDERED: MIDAZOLAM 2 MG/2 ML VIAL IVP ONE (13:42)
--- NOTE | 2017-12-20 13:42 | PDANEPAE ---
ANE History of Present Illness hx A flutter with CHF ANE Past Medical History - Cardiovascular History Hx Hypertension: Yes Hx Arrhythmias: No Hx Chest Pain: No Hx Coronary Artery / Peripheral Vascular Disease: No Hx CHF / Valvular Disease: Yes Hx Palpitations: No Cardiovascular History Comment: AVR, MVR, AORTIC ANEURYSM - Pulmonary History Hx COPD: No Hx Asthma/Reactive Airway Disease: No Hx Recent Upper Respiratory Infection: No Hx Oxygen in Use at Home: No Hx Sleep Apnea: No - Neurologic History Hx Cerebrovascular Accident: No Hx Seizures: No Hx Dementia: No - Endocrine History Hx Diabetes: No - Renal History Hx Renal Disorders: No - Liver History Hx Hepatic Disorders: No - Neurological & Psychiatric Hx Hx Neurological and Psychiatric Disorders: No - Cancer History Hx Cancer: No - Congenital Disorder History Hx Congenital Disorders: No - GI History Hx Gastrointestinal Disorders: No - Other Health History Other Health History: BRUISIES EASILY - Chronic Pain History Chronic Pain: No - Surgical History Prior Surgeries: cardiac cath, trigger finger release x 2 ANE Review of Systems Review of systems is: negative Review of Systems: - Exercise capacity Exercise capacity: >=4 METS ANE Patient History - Allergies Allergies/Adverse Reactions: No Known Allergies Allergy (Verified 07/25/17 23:49) - Home Medications Home Medications: Cholecalciferol Vit D3 [Vitamin D3 (*)] 1,000 units PO DAILY 02/10/17 [Last Taken 12/19/17 10:00] Herbals/Supplements -Info Only 1 ea PO DAILY 05/24/17 [Last Taken 12/18/17 10:00 ] Atorvastatin Calcium [Lipitor 10 mg (*)] 10 mg PO HS 12/13/17 [Last Taken 18:00] Losartan Potassium [Cozaar 25 mg (*)] 25 mg PO DAILY 12/13/17 [Last Taken 10:00] Metoprolol Succinate Xr [Toprol Xl 100 mg (*)] 100 mg PO DAILY 12/13/17 [Last Taken 12/18/17 10:00] Potassium Cl [Klor-Con 20 meq (*)] 20 meq PO DAILY 12/13/17 [Last Taken 18:00] Torsemide [Demadex] 30 mg PO DAILY AT 10AM 12/13/17 [Last Taken 12/18/17 08:00] Warfarin Sodium [Coumadin 2.5MG (*)] 2.5 mg PO TUTHSA@12/13/17 [Last Taken 18:00] Warfarin Sodium [Coumadin 5MG (*)] 5 mg PO SUMOWEFR@12/13/17 [Last Taken 06/04 18:00] - NPO status NPO Status: no food or drink >8 hours - Anes Hx Anes Hx: no prior problems - Smoking Hx Smoking Status: Former smoker - Alcohol Use Alcohol Use: Occasionally - Family Anes Hx Family Anes Hx: none Family Hx Anesthesia Complications: none ANE Labs/Vital Signs - Labs Result Diagrams: 12/20/17 11:20 12/20/17 11:20 - Vital Signs Height: 175.26 cm Weight: 68.039 kg ANE Physical Exam - Airway Neck exam: FROM Mallampati Score: Class 2 - Pulmonary Pulmonary: no respiratory distress - Cardiovascular Cardiovascular: regular rate and rhythym - ASA Status ASA Status: III ANE Anesthesia Plan Anesthesia Plan: general endotracheal anesthesia
[2017-12-20] MEDS ORDERED: PROPOFOL 200 MG/20 ML VIAL ONE (14:00)
[2017-12-20] MEDS ORDERED: fentaNYL 100 MCG/2 ML INJ ONE (14:00)
[2017-12-20] MEDS ORDERED: ROCURONIUM 100 MG/10 ML VIAL ONE (14:00)
[2017-12-20] MEDS ORDERED: DEXAMETHASONE 4 MG/ML VIAL ONE (14:10)
[2017-12-20] MEDS ORDERED: ISOPROTERENOL HCL/D5W 0.2 MG/50 ML BAG IV ONE (14:51)
[2017-12-20] MEDS ORDERED: ONDANSETRON 4 MG/2 ML VIAL ONE (15:36)
[2017-12-20] MEDS ORDERED: SUGAMMADEX SODIUM 200 MG/2 ML VIAL IVP ONE (15:36)
[2017-12-20] MEDS ORDERED: NALOXONE HCL 0.4 MG/ML INJ IVP PRN (16:28)
[2017-12-20] MEDS ORDERED: ONDANSETRON 4 MG/2 ML VIAL IVP PRN (16:28)
[2017-12-20] MEDS ORDERED: PROMETHAZINE HCL 25 MG/ML INJ IVP PRN (16:28)
[2017-12-20] MEDS ORDERED: ALBUTEROL 3 ML DEYVIAL IH PRN (16:28)
[2017-12-20] MEDS ORDERED: ACETAMINOPHEN 500 MG TAB PO PRN (16:28)
--- NOTE | 2017-12-20 16:28 | POSTANESTH ---
Post Anesthetic Evaluation Cardiovascular Status: Normal, Stable Respiratory Status: Normal, Stable Level of Consciousness/Mental Status: Can Participate in Eval Pain Control: Adequate, Prn Tx Ordered Nausea/Vomiting Control: Adequate, Prn Tx Ordered Complications Possibly Related to Anesthesia: None Noted
--- NOTE | 2017-12-20 18:36 | EPPROC ---
Electrophysiology Procedure Note: ELECTROPHYSIOLOGIC STUDY AND CATHETER MEDIATED ABLATION FOR SUBEUSTACHIAN ISTHMUS DEPENDENT COUNTERCLOCKWISE ATRIAL FLUTTER AND FOCAL ATRIAL TACHYCARDIA INDICATION: Recurrent atrial flutter and tachycardia mediated cardiomyopathy Prior CABG and aortic valve replacement, mitral valve repair PROCEDURES PERFORMED: 50902-64 EP evaluation with RA/RV/LA pace/record, with arrhythmia induction 85508-95 EP evaluation with RA/RV pace record, insert/reposition catheter, with arrhythmia induction 46456 SVT ablation 2nd arrhythmia 50223 3D mapping Fluoroscopy Catheters & Anesthesia: The patient arrived in the Electrophysiology Laboratory in the fasting state. The right clavicular region, right groin, and left groin area were prepped and draped in the usual sterile manner. Anesthesiologist administered general anesthesia. Appropriate non-invasive blood pressure, pulse oximetry and end- tidal CO2 monitoring was established. All catheters were placed percutaneously using the modified Seldinger technique , and advanced into position under fluoroscopic guidance. One #7 Slovenian deflectable octapolar electrode catheter was advanced to the His-bundle position via the left femoral vein and then in coronary sinus . One # 7 Slovenian Halo catheter was inserted through the right femoral vein and was placed at the tricuspid annulus. Heparin was administered to keep ACT > 200 seconds. Programmed stimulation was performed from the right atrium, coronary sinus ( left atrium) and right ventricle. Parahisian pacing demonstrated all retrograde conduction over the AV node. On arrival to the Electrophysiology Laboratory the patient was in sinus rhythm. Atrial flutter has been documented previously. In preparation for ablation of typical atrial flutter, a high-resolution 3D (3 dimensional) Carto electroanatomical map of the sub-Eustachian isthmus and right atrium was obtained during pacing of the posterolateral coronary sinus. For ablation of typical atrial flutter, one Mobi sheath was placed in the right atrium. A #8 Slovenian deflectable quadrapolar electrode catheter (2mm-5mm-2mm spacing) with 3.5 mm irrigated tip electrode and location sensor for the Branded Reality mapping system was inserted in the long sheath and advanced to the right atrium. Radiofrequency applications were applied between the tricuspid annulus at 0630 oclock as seen in the ERNST view and the inferior vena cava. This achieved conduction block across the isthmus. Following ablation of the atrial flutter, programmed atrial stimulation was performed in the baseline state and with isoproterenol infusion 2 micrograms/ minute. A focal atrial tachycardia was induced, cycle length 380-420 milliseconds. High-resolution 3D electroanatomic map of the right atrium and SVC was obtained. This was a focal tachycardia arising at the superior aspect of the Sandra terminalis. High output pacing at this site did not show any phrenic nerve capture. 1st RF application at this site accelerated and then terminated the atrial tachycardia. Further RF lesions were applied in this area. Post ablation, a high-resolution electroanatomical map of the sub-Eustachian isthmus was obtained during pacing of the posterolateral coronary sinus. This confirmed conduction block across the sub-Eustachian isthmus. Bidirectional block was also confirmed by pacing. The catheters were removed. Sheaths were removed in the EP lab after applying subcutaneous purse string suture. The patient was transferred to the cardiovascular holding area in stable condition. There were no apparent complications. CONCLUSIONS: 1. Atrial flutter. 2. Successful catheter mediated ablation of cavotricuspid isthmus achieving bi -directional conduction block across cavotricuspid isthmus. 3. Focal right atrial tachycardia, arising at superior aspect of Sandra terminalis. Successful ablation. 4. No apparent complications. Patient Problems: Problems Problem Status Onset Postoperative atrial fibrillation Acute Anemia Acute Acute blood loss anemia Acute S/P mitral valve repair Acute S/P aortic valve replacement Acute Nocturnal hypoxia Acute Nocturnal hypoxia Acute Acute on chronic systolic CHF (congestive heart failure), NYHA class 4 Acute Acute on chronic systolic CHF (congestive heart failure), NYHA class 4 Acute Aortic stenosis Acute Aortic stenosis Acute
[2017-12-20] MEDS ORDERED: ATORVASTATIN CALCIUM 10 MG TAB PO SCH (21:00)
[2017-12-20] MEDS ORDERED: WARFARIN SODIUM 5 MG TAB PO SCH (21:00)
[2017-12-21 04:06] LABS: PLATELET COUNT 165 10^3/uL (150-400)
[2017-12-21] MEDS ORDERED: METOPROLOL SUCCINATE XR 100 MG TAB PO SCH (09:00)
[2017-12-21] MEDS ORDERED: CHOLECALCIFEROL VIT D3 1,000 UNITS TAB PO SCH (09:00)
[2017-12-21] MEDS ORDERED: ASPIRIN 81 MG CHEWABLE TAB PO SCH (09:00)
[2017-12-21] MEDS ORDERED: LOSARTAN POTASSIUM 25 MG TAB PO SCH (09:00)
[2017-12-21] MEDS ORDERED: POTASSIUM CL 20 MEQ TAB PO SCH (09:00)
[2017-12-21] MEDS ORDERED: TORSEMIDE 20 MG TAB PO SCH (10:00)
--- NOTE | 2017-12-21 10:53 | ECHO ---
[email or web address] [address] [address] Main: [phone] Fax: [email or web address] Echocardiogram Name: MAGALY MANTILLA MR#: [id number] Study Date: 12/21/2017 Study Time: 07:40 AM Date of : 1940 Age: 77 year(s) Height: 175.3 cm (69 in.) Weight: 68.04 kg (150 lb.) BSA: 1.83 m2 Gender: Male Examination: Echo Indication: F/U Post EP Study Image Quality: Adequate Contrast: Requested by: Guillermo Bedoya BP: 110 mmHg/66 mmHg Heart Rate: Rhythm: Indication: F/U Post EP Study Procedure Staff Telemetry Registered Nurse: Yoli Curz [facility] Reading Physician: Dagoberto Bro MD Requesting Provider: Conclusions: Normal size left ventricle. Mild concentric LV hypertrophy. Normal global systolic LV function. EF is 58 %. Mildly dilated right ventricle. Normal RV function. The left atrium is moderately dilated. The right atrium is mildly dilated. A bioprothetic mitral valve is in place. The mitral valve prosthesis exhibits normal function. The aortic valve is a bioprosthesis. Normal functioning aortic valve prosthesis. Mild to moderate tricuspid valve regurgitation. The pulmonary artery pressure is moderately increased. Right ventricular systolic pressure measures 59mmHg. No pericardial effusion. Measurements: Chambers Valvular Assessment AV/MV Valvular Assessment TV/PV Normal Normal Normal Name Value Range Name Value Range Name Value Range Ao Nancy (2D): 2.8 cm (1.4 cm-2.6 AV Vmax: 2.15 m/s (1 m/s-1.7 TR Vmax: 3.66 mm/s ( - ) cm) m/s) TR PGmax: 54 mmHg ( - ) IVSd (2D): 1.2 cm (0.6 cm-1.1 AV maxP mmHg ( - ) syst. PAP: 59 mmHg ( - ) cm) AV meanP mmHg ( - ) PV Vmax: 0.84 m/s (0.6 m/s-0.9 LVDd (2D): 4.8 cm (4.2 cm-5.9 JANEE (VTI): 1.4 cm ( - ) m/s) cm) MV E Vmax: 1.53 m/s ( - ) PV PGmax: 3 mmHg ( - ) LVDs (2D): 3.1 cm (2.1 cm-4 MV A Vmax: 0.82 m/s ( - ) cm) MV E/A: 1.87 ( - ) MV meanP mmHg ( - ) Patient: MAGALY MANTILLA Study Date: 12/21/2017 Page 1 of 3 07:40 AM LVPWd (2D): 1.1 cm (0.6 cm-1 MV PHT: 0.082 s ( - ) cm) MVA (Vmax): 1.1 m/s ( - ) LVOTd 1.8 cm 1.8 cm mm MVA (PHT): 2.7 s ( - ) LVEF (BP): 58 % (>=55 %) RVDd(2D): 3.5 cm (1.9 cm-3.8 cmmm) Continued Measurements: Chambers Valvular Assessment AV/MV Valvular Assessment TV/PV Name Value Name Value Name Value LADs: 4.8 cm MV DecTime: 264 m/s CVP (est.): 5 mmHg LADs Lon.0 cm MV E' Septal: 0.06 m/s LA Area: 24.8 cm2 MV E/E' Septal: 27.10 LA Volume: 79 ml MV E/E' Lateral: 24.90 LA Volume Index: 43.2 ml/m2 MV VTI: 64.40 cm RA Area: 18.9 cm2 Additional Vessels Name Value Ao Ascendin.8 cm Inferior Vena Cava: 1.3 cm Findings: Left Ventricle: Normal size left ventricle. Mild concentric LV hypertrophy. Normal global systolic LV function. EF is 58 %. No regional wall motion abnormality. Unable to assess diastolic dysfunction. Right Ventricle: Mildly dilated right ventricle. Normal RV function. Left Atrium: The left atrium is moderately dilated. Right Atrium: The right atrium is mildly dilated. Mitral Valve: A bioprothetic mitral valve is in place. The mitral valve prosthesis exhibits normal function. The prosthetic mitral valve is normal. Prosthetic mitral valve orifice motion is normal. Mild MV prosthesis regurgitation. Aortic Valve: The aortic valve is a bioprosthesis. Normal functioning aortic valve prosthesis. The prosthetic aortic valve is normal. The orifice motion of the prosthetic aortic valve is normal. Mild prosthesis regurgitation. Tricuspid Valve: The tricuspid valve is normal in appearance and function. Mild to moderate tricuspid valve regurgitation. The pulmonary artery pressure is moderately increased. Right ventricular systolic pressure measures 59mmHg. Pulmonic Valve: The pulmonic valve is normal in appearance and function. Mild to moderate pulmonic valve regurgitation. Aorta: The aorta is normal. Normal size aortic root measuring 2.8 cm. Normal size ascending aorta measuring 3.8 cm. IVC: The IVC is normal sized. Pericardium: No pericardial effusion. No pleural effusion. Patient: MAGALY MANTILLA Study Date: 12/21/2017 Page 2 of 3 07:40 AM (No Signature Object) Patient: MAGALY MANTILLA Study Date: 12/21/2017 Page 3 of 3 07:40 AM [id number]
--- NOTE | 2017-12-21 11:39 | GDS ---
DISCHARGE DIAGNOSES: 1. Atrial flutter, status post atrial flutter ablation. 2. Focal right atrial tachycardia, status post ablation. 3. 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 4. Aortic valve replacement earlier this year. 5. Postoperative atrial fibrillation. HOSPITAL COURSE: For a detailed H and P, please see the prior dictation. Briefly, the patient is a 77-year-old male with a history of AVR earlier this year by Dr. Patel. Postoperatively, he developed atrial fibrillation. Most recently, he was hospitalized with atrial flutter and tachycardiac-induced cardiomyopathy, requiring cardioversion. His ejection fraction was 20%, but normalized with maintaining a normal sinus rhythm. He did complain of palpitations and fatigue when in atrial flutter. Ultimately, he decided to proceed with an EP study and ablation which was performed by Dr. Guillermo Bedoya on December 20, 2017. He was identified to have atrial flutter which was ablated. He also had an atrial tachycardia which was ablated. The following morning, the patient denied any chest discomfort or palpitations. He was monitored on telemetry and remained in normal sinus rhythm, with occasional PVCs. An echocardiogram the day of discharge revealed a normal sinus rhythm with an ejection fraction of 58%, with mild left ventricular hypertrophy. He has a bioprosthetic mitral valve and aortic valve in place, both of which are functioning normally. There is [id number]-[id number] tricuspid regurgitation and moderately elevated right ventricular systolic pressures of 59. There is no evidence of a pericardial effusion. PHYSICAL EXAMINATION: GENERAL: The patient appears in no acute distress. VITALS: Blood pressure 135/72, heart rate 60, oxygen saturation of 93% on room air. Afebrile. LUNGS: Clear to auscultation. No wheezes, rhonchi, or crackles are auscultated. CARDIAC: Regular rate and rhythm, with a systolic murmur present. EXTREMITIES: The bilateral groins where access was obtained for the EP study and ablation are clean and intact, without any evidence of infection or hematoma. Sutures are removed at the patient's bedside today. DISCHARGE MEDICATIONS: Vitamin D3 at 1000 units daily; aspirin 81 mg daily; Klor-Con 20 mEq daily; metoprolol XL 100 mg daily; Lipitor 10 mg daily; Coumadin 5 mg daily, except for 2.5 mg on Monday, , and Monday; Demadex 30 mg daily; Cozaar 25 mg daily. PLAN: The patient is currently stable and ready for discharge home. He has been given groin precautions. Coumadin has been resumed, and he will have an INR checked in 1 week. He will follow up with Dr. Guillermo Bedoya in 1 month. Greater than 30 minutes was spent coordinating the patients care today. /[id number]/MODL MTDD
[2017-12-21 11:51] VITALS: BP 105/61
[2017-12-21] MEDS ORDERED: WARFARIN SODIUM 2.5 MG TAB PO SCH (21:00)
--- NOTE | 2017-12-22 06:55 | CPEKG ---
Test Reason : OPEN Blood Pressure : / mmHG Vent. Rate : 057 BPM Atrial Rate : 057 BPM P-R Int : 137 ms QRS Dur : 106 ms QT Int : 486 ms P-R-T Axes : -62 -42 099 degrees QTc Int : 474 ms Sinus or ectopic atrial rhythm Ventricular premature complex Left anterior fascicular block Nonspecific T abnormalities, lateral leads Confirmed by Dylon Garcia ([id number]) on 12/22/2017 6:54:47 AM Referred By: Confirmed By:Dylon Garcia
--- NOTE | 2017-12-22 14:16 | CPEKG ---
Test Reason : F/U Post EP Study Blood Pressure : / mmHG Vent. Rate : 069 BPM Atrial Rate : 070 BPM P-R Int : 146 ms QRS Dur : 105 ms QT Int : 455 ms P-R-T Axes : -61 -47 089 degrees QTc Int : 488 ms Ectopic atrial rhythm LAD, consider left anterior fascicular block Borderline prolonged QT interval Confirmed by Dylon Garcia ([id number]) on 12/22/2017 2:16:01 PM Referred By: Confirmed By:Dylon Garcia
== END 2017-12-21 12:44 | disposition home or self-care (01) ==
LOC: FCATH 10:59 → F2W 16:18
PROVIDERS: ADMIT Internal Medicine Cardiovascular Disease; ATTEND Internal Medicine Cardiovascular Disease
PROC: 02563ZZ Destruction of Right Atrium, Percutaneous Approach (ICD-10-PCS; principal; 2017-12-20)
PROC: 02K83ZZ Map Conduction Mechanism, Percutaneous Approach (ICD-10-PCS; principal; 2017-12-20)
DX: I48.92 Unspecified atrial flutter (principal); R00.0 Tachycardia, unspecified; I42.9 Cardiomyopathy, unspecified; Z95.4 Presence of other heart-valve replacement; Z87.891 Personal history of nicotine dependence
CPT/HCPCS: 93005; 93306; 93613; 93621; 93623; 93653; 93655; C1731; C1732; C1766; J1100; J1644; J2250; J2405; J2704; J3010